=== PATIENT | male | born 1950 | race African-American/Black ===

== ENCOUNTER → 2017-07-18 | Outpatient (CLI) | payer MEDICARE, BC ==
--- NOTE | 2017-07-18 21:54 | US ---
EXAMINATION TYPE: US thyroid st tissue head/neck DATE OF EXAM: 07/18/2017 COMPARISON: Thyroid ultrasound January 13, 2016 CLINICAL HISTORY: R94.6 ABN THYROID LABS. ABN labs, previous GLAND SIZE: Right Lobe: 4.7 x 2.1 x 2.0 cm Overall Parenchyma: heterogenous Left Lobe: 4.6 x 2.0 x 1.5 cm Overall Parenchyma: heterogeneous Isthmus Thickness: 0.4 cm Bilateral neck scanned, no evidence of lymphadenopathy. Bilateral heterogeneous thyroid as seen on pr evious Heterogeneous but normal sized thyroid gland is redemonstrated without concerning greater than 1 cm s olid or cystic nodule. IMPRESSION: Overall stable findings, heterogeneous normal size thyroid gland with multiple small nodules, no worr isome nodules.
== END | disposition home or self-care (01) ==
LOC: RADUSWWP 15:37
PROVIDERS: ATTEND Family Medicine
DX: R94.6 Abnormal results of thyroid function studies (principal)
CPT/HCPCS: 76536

== ENCOUNTER → 2017-09-25 | Outpatient (CLI) | payer MEDICARE ==
[2017-09-25 18:38] LABS: ACTH 23.6 pg/mL (0.00-45.99)
== END | disposition home or self-care (01) ==
LOC: LABWHC1 07:57
PROVIDERS: ATTEND Internal Medicine Endocrinology, Diabetes & Metabolism
DX: E05.90 Thyrotoxicosis, unspecified without thyrotoxic crisis or storm (principal); R53.83 Other fatigue
CPT/HCPCS: 36415; 82024; 82533; 84146; 84439; 84443; 84445; 84480

== ENCOUNTER → 2017-10-10 | Outpatient (CLI) | payer MEDICARE ==
--- NOTE | 2017-10-11 10:26 | NM ---
EXAMINATION TYPE: NM thyroid image w uptake DATE OF EXAM: 10/11/2017 COMPARISON: 07/18/2017 ultrasound HISTORY: Fatigue subclinical hyperthyroidism TECHNIQUE: Thyroid iodine uptake is calculated and images performed after the oral administration of 320 uCi I-123 uCi 1-123 Capsule. FINDINGS: There is normal distribution of activity throughout the gland. The 4 hour iodine uptake is calculated at 14.7% (normal range 8-14%). The 24-hour iodine uptake is calculated at 37.5% (angel l range 15-35%). Uptake values are slightly above the normal range. Imaging is performed over the bilateral thyroid lobes. Thyroid is at the suprasternal notch. A small area of slight increased radiotracer is along the superior medial left lobe thyroid on previous december b e an additional lobule of thyroid tissue. This area is not clearly identified on the ultrasound. IMPRESSION: 1. Elevated thyroid uptake. 2. Lobular uptake superior medial left lobe thyroid
== END | disposition home or self-care (01) ==
LOC: RADNMMAIN 08:34
PROVIDERS: ATTEND Internal Medicine Endocrinology, Diabetes & Metabolism
DX: R94.6 Abnormal results of thyroid function studies (principal)
CPT/HCPCS: 78014; A9516

== ENCOUNTER → 2017-11-26 | Outpatient (CLI) | payer MEDICARE ==
[2017-11-26 10:07] LABS: T4, Free (Free Thyroxine) 1.36 ng/dL (0.78-2.19)
== END | disposition home or self-care (01) ==
LOC: LABWHC1 09:12
PROVIDERS: ATTEND Internal Medicine Endocrinology, Diabetes & Metabolism
DX: E05.90 Thyrotoxicosis, unspecified without thyrotoxic crisis or storm (principal); R53.83 Other fatigue
CPT/HCPCS: 36415; 84439; 84443

== ENCOUNTER → 2017-12-17 | Outpatient (CLI) | payer MEDICARE ==
--- NOTE | 2017-12-17 14:22 | US ---
EXAMINATION TYPE: US venous doppler duplex LE DATE OF EXAM: 12/17/2017 2:01 PM COMPARISON: US CLINICAL HISTORY: R60.0 Localized Edema. Rt calf swelling x 2 weeks with pain medial leg SIDE PERFORMED: Bilateral TECHNIQUE: The lower extremity deep venous system is examined utilizing real time linear array sonog peggy with graded compression, Doppler sonography and color-flow sonography. VESSELS IMAGED: Common Femoral Vein Deep Femoral Vein Greater Saphenous Vein * Femoral Vein Popliteal Vein Small Saphenous Vein * Proximal Calf Veins (* superficial vessels) Grayscale, color doppler, spectral doppler imaging performed of the deep veins of the lower extremiti es. There is normal flow, compressibility, vascular waveforms. Right Leg: Negative for DVT. Fluid channels are noted length of right calf Left Leg: Negative for DVT IMPRESSION: No sonographic evidence of deep venous thrombosis within either lower extremity. Prefere ntial dependent right lower extremity subcutaneous edema
== END | disposition home or self-care (01) ==
LOC: RADUSWWP 13:25
PROVIDERS: ATTEND Family Medicine
DX: R60.0 Localized edema (principal)
CPT/HCPCS: 93970

== ENCOUNTER → 2018-02-05 | Outpatient (CLI) | payer MEDICARE ==
[2018-02-05 10:09] LABS: T4, Free (Free Thyroxine) 6.29 ng/dL (0.78-2.19)
== END | disposition home or self-care (01) ==
LOC: LABWHC1 08:37
PROVIDERS: ATTEND Internal Medicine Endocrinology, Diabetes & Metabolism
DX: E05.90 Thyrotoxicosis, unspecified without thyrotoxic crisis or storm (principal)
CPT/HCPCS: 36415; 84439; 84443; 84480

== ENCOUNTER → 2018-02-28 | Outpatient (CLI) | payer MEDICARE ==
[2018-02-28 09:49] LABS: T4, Free (Free Thyroxine) 2.04 ng/dL (0.78-2.19)
== END | disposition home or self-care (01) ==
LOC: LABWHC1 08:31
PROVIDERS: ATTEND Internal Medicine Endocrinology, Diabetes & Metabolism
DX: E05.00 Thyrotoxicosis with diffuse goiter without thyrotoxic crisis or storm (principal)
CPT/HCPCS: 36415; 84439; 84443; 84480

== ENCOUNTER → 2018-03-18 | Outpatient (CLI) | payer MEDICARE ==
[2018-03-18 11:06] LABS: T4, Free (Free Thyroxine) 1.63 ng/dL (0.78-2.19)
== END | disposition home or self-care (01) ==
LOC: LABWHC1 10:16
PROVIDERS: ATTEND Internal Medicine Endocrinology, Diabetes & Metabolism
DX: E05.00 Thyrotoxicosis with diffuse goiter without thyrotoxic crisis or storm (principal)
CPT/HCPCS: 36415; 84439; 84443; 84480

== ENCOUNTER → 2018-05-20 | Outpatient (CLI) | payer MEDICARE ==
[2018-05-20 10:32] LABS: T4, Free (Free Thyroxine) 0.56 ng/dL (0.78-2.19)
== END | disposition home or self-care (01) ==
LOC: LABWHC1 08:35
PROVIDERS: ATTEND Internal Medicine Endocrinology, Diabetes & Metabolism
DX: E05.00 Thyrotoxicosis with diffuse goiter without thyrotoxic crisis or storm (principal)
CPT/HCPCS: 36415; 84439; 84443; 84480

== ENCOUNTER → 2018-07-15 | Outpatient (CLI) | payer MEDICARE ==
[2018-07-15 16:08] LABS: T4, Free (Free Thyroxine) 0.5 ng/dL (0.80-1.80)
== END | disposition home or self-care (01) ==
LOC: LABWHC1 09:03
PROVIDERS: ATTEND Internal Medicine Endocrinology, Diabetes & Metabolism
DX: E05.00 Thyrotoxicosis with diffuse goiter without thyrotoxic crisis or storm (principal)
CPT/HCPCS: 36415; 84439; 84443; 84480

== ENCOUNTER → 2018-10-23 | Outpatient (CLI) | payer MEDICARE ==
[2018-10-23 17:50] LABS: T4, Free (Free Thyroxine) 0.7 ng/dL (0.80-1.80)
== END | disposition home or self-care (01) ==
LOC: LABWHC1 09:21
PROVIDERS: ATTEND Internal Medicine Endocrinology, Diabetes & Metabolism
DX: E05.90 Thyrotoxicosis, unspecified without thyrotoxic crisis or storm (principal)
CPT/HCPCS: 36415; 84439; 84443; 84480

== ENCOUNTER → 2018-12-19 | Outpatient (CLI) | payer MEDICARE | END | disposition home or self-care (01) | LOC: LABWHC1 08:51 | PROVIDERS: ATTEND Internal Medicine Endocrinology, Diabetes & Metabolism | DX: E05.00 Thyrotoxicosis with diffuse goiter without thyrotoxic crisis or storm (principal) | CPT/HCPCS: 36415; 84439; 84443; 84480 ==

== ENCOUNTER → 2019-03-03 | Outpatient (CLI) | payer MEDICARE | END | disposition home or self-care (01) | LOC: LABWHC1 08:00 | PROVIDERS: ATTEND Internal Medicine Endocrinology, Diabetes & Metabolism | DX: E05.00 Thyrotoxicosis with diffuse goiter without thyrotoxic crisis or storm (principal) | CPT/HCPCS: 36415; 84439; 84443; 84480 ==

== ENCOUNTER → 2019-06-05 | Outpatient (CLI) | payer MEDICARE | END | disposition home or self-care (01) | LOC: LABWHC1 08:16 | PROVIDERS: ATTEND Internal Medicine Endocrinology, Diabetes & Metabolism | DX: E05.00 Thyrotoxicosis with diffuse goiter without thyrotoxic crisis or storm (principal) | CPT/HCPCS: 36415; 84439; 84443; 84480 ==

== ENCOUNTER → 2019-08-04 | Outpatient (CLI) | payer MEDICARE ==
[2019-08-04 17:29] LABS: ALT 22 U/L (10-49); AST 16 U/L (14-35); African American GFR (CKD) 70.6 (60.0-200.0); Albumin/Globulin Ratio 2.32 (1.60-3.17); Alkaline Phosphatase 101 U/L (41-126); Calcium 9.9 mg/dL (8.7-10.3); Carbon Dioxide 27.7 mmol/L (21.6-31.8); Chloride 104 mmol/L (96-109); Globulin 1.9 g/dL (1.6-3.3); Glucose 233 mg/dL (70-110); Non-African American GFR(CKD) 60.9 (60.0-200.0); Potassium 4.8 mmol/L (3.5-5.5); Sodium 139 mmol/L (135-145); Total Bilirubin 1.4 mg/dL (0.2-1.2); Total Protein 6.3 g/dL (6.2-8.2)
== END | disposition home or self-care (01) ==
LOC: LABWHC1 08:15
PROVIDERS: ATTEND Internal Medicine Endocrinology, Diabetes & Metabolism
DX: E05.00 Thyrotoxicosis with diffuse goiter without thyrotoxic crisis or storm (principal)
CPT/HCPCS: 36415; 80053; 84439; 84443; 84480

== ENCOUNTER → 2019-09-15 | Outpatient (CLI) | payer MEDICARE ==
[2019-09-15 16:13] LABS: African American GFR (CKD) 58.6 (60.0-200.0); Albumin 4.8 g/dL (3.80-4.90); Albumin/Globulin Ratio 2.4 (1.60-3.17); Anion Gap 6.1 mmol/L (4.00-12.00); BUN/Creat Ratio 12.86 Ratio (12.00-20.00); Calcium 9.9 mg/dL (8.7-10.3); Carbon Dioxide 27.9 mmol/L (21.6-31.8); Non-African American GFR(CKD) 50.5 (60.0-200.0); Potassium 4.6 mmol/L (3.5-5.5); Total Bilirubin 1.5 mg/dL (0.3-1.2); Total Protein 6.8 g/dL (6.2-8.2)
[2019-09-15 16:21] LABS: T4, Free (Free Thyroxine) 1.5 ng/dL (0.80-1.80)
== END | disposition home or self-care (01) ==
LOC: LABWHC1 08:25
PROVIDERS: ATTEND Internal Medicine Endocrinology, Diabetes & Metabolism
DX: E05.00 Thyrotoxicosis with diffuse goiter without thyrotoxic crisis or storm (principal)
CPT/HCPCS: 36415; 80053; 84439; 84443; 84480

== ENCOUNTER → 2019-12-17 | Outpatient (CLI) | payer MEDICARE ==
[2019-12-17 15:56] LABS: African American GFR (CKD) 64.1 (60.0-200.0); Albumin 4.6 g/dL (3.80-4.90); Anion Gap 6.9 mmol/L (4.00-12.00); BUN/Creat Ratio 11.54 Ratio (12.00-20.00); Carbon Dioxide 28.1 mmol/L (21.6-31.8); Non-African American GFR(CKD) 55.3 (60.0-200.0); Potassium 4.6 mmol/L (3.5-5.5); Total Protein 6.8 g/dL (6.2-8.2)
[2019-12-17 15:57] LABS: Albumin/Globulin Ratio 2.09 (1.60-3.17); Globulin 2.2 g/dL (1.6-3.3); Total Bilirubin 1.5 mg/dL (0.2-1.2)
== END | disposition home or self-care (01) ==
LOC: LABWHC1 08:31
PROVIDERS: ATTEND Internal Medicine Endocrinology, Diabetes & Metabolism
DX: E05.00 Thyrotoxicosis with diffuse goiter without thyrotoxic crisis or storm (principal)
CPT/HCPCS: 36415; 80053; 84439; 84443; 84480

== ENCOUNTER → 2021-02-15 | Outpatient (CLI) | payer MEDICARE | END | disposition home or self-care (01) | LOC: LABWHC1 15:55 | PROVIDERS: ATTEND Internal Medicine Endocrinology, Diabetes & Metabolism | DX: E05.00 Thyrotoxicosis with diffuse goiter without thyrotoxic crisis or storm (principal) | CPT/HCPCS: 36415; 84443; 84480 ==

== ENCOUNTER → 2021-05-16 | Outpatient (CLI) | payer MEDICARE | END | disposition home or self-care (01) | LOC: LABWHC1 08:05 | PROVIDERS: ATTEND Internal Medicine Endocrinology, Diabetes & Metabolism | DX: E05.00 Thyrotoxicosis with diffuse goiter without thyrotoxic crisis or storm (principal) | CPT/HCPCS: 36415; 84439; 84443; 84480 ==

== ENCOUNTER → 2021-08-30 | Outpatient (CLI) | payer MEDICARE ==
[2021-08-30 15:33] LABS: T4, Free (Free Thyroxine) 1.09 ng/dL (0.800-1.800)
== END | disposition home or self-care (01) ==
LOC: LABWHC1 08:26
PROVIDERS: ATTEND Internal Medicine Endocrinology, Diabetes & Metabolism
DX: E05.00 Thyrotoxicosis with diffuse goiter without thyrotoxic crisis or storm (principal)
CPT/HCPCS: 36415; 84439; 84443; 84480

== ENCOUNTER → 2021-12-27 | Outpatient (CLI) | payer MEDICARE ==
[2021-12-27 14:37] LABS: T4, Free (Free Thyroxine) 1.29 ng/dL (0.800-1.800)
== END | disposition home or self-care (01) ==
LOC: LABWHC1 08:17
PROVIDERS: ATTEND Internal Medicine Endocrinology, Diabetes & Metabolism
DX: E05.00 Thyrotoxicosis with diffuse goiter without thyrotoxic crisis or storm (principal)
CPT/HCPCS: 36415; 84439; 84443; 84480

== ENCOUNTER → 2022-02-23 | Outpatient (CLI) | payer MEDICARE ==
[2022-02-23 09:30] LABS: ALT 64 U/L (4-49); AST 52 U/L (17-59); African American GFR (CKD) 54 (>60 ml/min/1.73 sqM); Albumin 4.5 g/dL (3.5-5.0); Albumin/Globulin Ratio 1.3; Alkaline Phosphatase 70 U/L (38-126); Anion Gap 7 mmol/L; Blood Urea Nitrogen 17 mg/dL (9-20); Calcium 9.1 mg/dL (8.4-10.2); Carbon Dioxide 27 mmol/L (22-30); Chloride 105 mmol/L (98-107); Globulin 3.4 g/dL; Glucose 87 mg/dL (74-99); Non-African American GFR(CKD) 47 (>60 ml/min/1.73 sqM); Potassium 4.5 mmol/L (3.5-5.1); Sodium 139 mmol/L (137-145); Total Bilirubin 1.1 mg/dL (0.2-1.3); Total Protein 7.9 g/dL (6.3-8.2)
[2022-02-23 10:49] LABS: Creatinine 24 Hour,Urine 1709.4 mg/24hr (1000.0-2000.0)
[2022-02-23 23:22] LABS: Total Protein 24 Hour,Urine 10.4 mg/dL (0.0-165.0)
[2022-02-24 20:10] LABS: Total Volume 24 Hour,Urine 2100 mL
== END | disposition home or self-care (01) ==
LOC: LABWHC1 08:14
PROVIDERS: ATTEND Family Medicine
DX: E11.22 Type 2 diabetes mellitus with diabetic chronic kidney disease (principal); N18.9 Chronic kidney disease, unspecified
CPT/HCPCS: 36415; 80053; 81050; 82575; 84156

== ENCOUNTER → 2022-03-30 | Outpatient (CLI) | payer OTHER ==
--- NOTE | 2022-03-30 13:44 | US ---
EXAMINATION TYPE: US kidneys/renal and bladder DATE OF EXAM: 03/30/2022 COMPARISON: NONE CLINICAL HISTORY: R94.4 ABNORMAL RESULTS OF KIDNEY FUNCTION STUDIES. abn labs only, no symptoms EXAM MEASUREMENTS: Right Kidney: 9.1 x 3.2 x 5.4 cm Left Kidney: 11.0 x 5.1 x 6.5 cm Right Kidney: No hydronephrosis or masses seen Left Kidney: No hydronephrosis or masses seen Bladder: wnl There is no evidence for hydronephrosis at this point in time. No nephrolithiasis is seen. No manuel s are identified. The urinary bladder is anechoic IMPRESSION: No evidence for obstructive uropathy..
== END | disposition home or self-care (01) ==
LOC: RADUSWWP 12:38
DX: R94.4 Abnormal results of kidney function studies (principal)
CPT/HCPCS: 76770

== ENCOUNTER → 2022-04-05 | Outpatient (CLI) | payer OTHER | END | disposition home or self-care (01) | LOC: LABWHC1 08:21 | PROVIDERS: ATTEND Internal Medicine Endocrinology, Diabetes & Metabolism | DX: E05.00 Thyrotoxicosis with diffuse goiter without thyrotoxic crisis or storm (principal) | CPT/HCPCS: 36415; 84439; 84443; 84480 ==

== ENCOUNTER 2022-05-10 08:16 | Day surgery (SDC) | payer MEDICARE, OTHER ==
[~2022-05-10 08:16] MED LIST: LACTATED RINGERS 1,000 ML IV SCH
--- NOTE | 2022-05-10 08:27 | P.GSHP ---
History of Present Illness H&P Date: 05/10/22 CHIEF COMPLAINT: Colon screen HISTORY OF PRESENT ILLNESS: The patient is a 72-year-old female who presents for colon screen. Lower endoscopy was offered for further evaluation and management. PAST MEDICAL HISTORY: Please see list. PAST SURGICAL HISTORY: Please see list. MEDICATIONS: Please see list. ALLERGIES: Please see list. SOCIAL HISTORY: No illicit drug use FAMILY HISTORY: No reports of Crohn disease or ulcerative colitis. REVIEW OF ORGAN SYSTEMS: CONSTITUTIONAL: No reports of fevers or chills. PHYSICAL EXAM: VITAL SIGNS: Stable GENERAL: Well-developed pleasant in no acute distress. HEENT: No scleral icterus. Extraocular movements grossly intact. Moist buccal mucosa. NECK: Supple without lymphadenopathy. CHEST: Unlabored respirations. Equal bilateral excursions. CARDIOVASCULAR: Regular rate and rhythm. Distal 2+ pulses. ABDOMEN: Soft, nontender, nondistended. MUSCULOSKELETAL: No clubbing, cyanosis, or edema. ASSESSMENT: 1. Colon screen. PLAN: 1. Recommend proceeding with a lower endoscopy Past Medical History Past Medical History: Diabetes Mellitus, Eye Disorder, Hypertension, Thyroid Disorder Additional Past Medical History / Comment(s): GLAUCOMA History of Any Multi-Drug Resistant Organisms: None Reported Additional Past Surgical History / Comment(s): BILATERAL CATARACTS/WITH LENS. COLONOSCOPIES. Additional Past Anesthesia/Blood Transfusion Reaction / Comment(s): GENERAL ANESTHESIA. Past Psychological History: No Psychological Hx Reported Smoking Status: Former smoker Past Alcohol Use History: Rare Additional Past Alcohol Use History / Comment(s): QUIT 1997. 1 PDD Past Drug Use History: None Reported Medications and Allergies Home Medications Medication Instructions Recorded Confirmed Type Atorvastatin [Lipitor] 40 mg PO HS 05/09/22 05/09/22 History Dorzolamide 2% [Trusopt 2%] 1 drop BOTH EYES QAM 05/09/22 05/09/22 History Insulin Glargine,Hum.rec.anlog 40 unit SQ HS 05/09/22 05/09/22 History [Lantus Solostar Pen] Latanoprost Ophth [Xalatan 0.005%] 1 drop BOTH EYES HS 05/09/22 05/09/22 History Timolol 0.5% Ophth Soln (Pf) 1 drop BOTH EYES QAM 05/09/22 05/09/22 History [Timoptic 0.5% Ocudose] hydroCHLOROthiazide [Hydrodiuril] 50 mg PO QAM 05/09/22 05/09/22 History lisinopriL [Zestril] 5 mg PO QAM 05/09/22 05/09/22 History methIMAzole 20 mg PO QAM 05/09/22 05/09/22 History Allergies Allergy/AdvReac Type Severity Reaction Status Date / Time No Known Allergies Allergy Verified 05/09/22 10:01
[2022-05-10 08:41] VITALS: RESP 16; TEMP 97
[2022-05-10 08:50] LABS: Glucose,Whole Blood 117 mg/dL (70-110)
[2022-05-10] MEDS ORDERED: PROPOFOL 10 MG/ML 20 ML VIAL IV ONE (08:54)
--- NOTE | 2022-05-10 09:28 | P.PCN ---
Date of Procedure: 05/10/22 Description of Procedure: PREOPERATIVE DIAGNOSIS: Colonoscopy screening POSTOPERATIVE DIAGNOSIS: Tubular adenoma ascending colon Tubular adenoma descending colon Tubular adenoma sigmoid colon Internal hemorrhoids, grade 2 OPERATION: Colonoscopy to the ileocecal valve and appendiceal orifice, cecum Colonoscopy with hot snare polypectomy Colonoscopy with cold forceps biopsy SURGEON: Negra Gutierrez MD. ANESTHESIA: MAC. INDICATIONS: The patient is an 72-year-old male who presents for his first colonoscopy screening. Benefits and risks were described and informed consent was obtained. DESCRIPTION OF PROCEDURE: The patient had undergone Sutab prep. The patient had been brought into the op erating room and laid in the left lateral decubitus position. After adequate intravenous sedation, the rectum was examined with 2% lidocaine jelly. The prostate fossa was unremarkable. No external hemorrhoids were encountered. The rectal tone was within normal limits. No lesions were palpated in the rectal vault. An Olympus colonoscope was advanced until the cecum, ileocecal valve and appendiceal orifice were clearly viewed. The prep was fair. No sigmoid diverticulosis was encountered. Colonic polyps were found and removed. No evidence of focal colitis was found. Retroflexion of the scope demonstrated grade 1 internal hemorrhoids without active bleeding or inflammation. The colon was desufflated. The patient had tolerated the procedure well. Withdrawal time was over 6 minutes. FINDINGS: Aronchick preparation quality scale 3 (1-5) Internal hemorrhoids, grade 1 No external hemorrhoids No arteriovenous malformations. No sigmoid diverticulosis Removal of 4 polyps: - Snare polypectomy 30 cm from the anal verge, 8 mm tubulovillous adenoma polyp. - Cold forceps biopsy at ascending colon, 4 mm polyp. - Cold forceps biopsy at 15 cm from the anal verge 2, 3 to 4 mm polyp. No focal colitis. RECOMMENDATIONS: Repeat colonoscopy 3 years, 2024 Plan - Discharge Summary Discharge Rx Participant: No New Discharge Prescriptions: Continue Dorzolamide 2% [Trusopt 2%] 1 drop BOTH EYES QAM Latanoprost Ophth [Xalatan 0.005%] 1 drop BOTH EYES HS lisinopriL [Zestril] 5 mg PO QAM Atorvastatin [Lipitor] 40 mg PO HS Insulin Glargine,Hum.rec.anlog [Lantus Solostar Pen] 40 unit SQ HS methIMAzole 20 mg PO QAM hydroCHLOROthiazide [Hydrodiuril] 50 mg PO QAM Timolol 0.5% Ophth Soln (Pf) [Timoptic 0.5% Ocudose] 1 drop BOTH EYES QAM Discharge Medication List Atorvastatin [Lipitor] 40 mg PO HS 05/09/22 [History] Dorzolamide 2% [Trusopt 2%] 1 drop BOTH EYES QAM 05/09/22 [History] Insulin Glargine,Hum.rec.anlog [Lantus Solostar Pen] 40 unit SQ HS 05/09/22 [History] Latanoprost Ophth [Xalatan 0.005%] 1 drop BOTH EYES HS 05/09/22 [History] Timolol 0.5% Ophth Soln (Pf) [Timoptic 0.5% Ocudose] 1 drop BOTH EYES QAM 05/09/22 [History] hydroCHLOROthiazide [Hydrodiuril] 50 mg PO QAM 05/09/22 [History] lisinopriL [Zestril] 5 mg PO QAM 05/09/22 [History] methIMAzole 20 mg PO QAM 05/09/22 [History] Follow up Appointment(s)/Referral(s): Negra Gutierrez MD [STAFF PHYSICIAN] - As Needed Patient Instructions/Handouts: Colorectal Polyps (GEN) Activity/Diet/Wound Care/Special Instructions: Repeat colonoscopy in 3 years, 2024 Discharge Disposition: HOME SELF-CARE
[2022-05-10 09:51] VITALS: BP 126/74; PULSE 74
== END 2022-05-10 10:08 | disposition home or self-care (01) ==
LOC: ORWHC2ENDO 08:16
PROVIDERS: ATTEND Surgery Plastic and Reconstructive Surgery
DX: Z12.11 Encounter for screening for malignant neoplasm of colon (principal); K63.5 Polyp of colon; K62.0 Anal polyp; K64.8 Other hemorrhoids; I10 Essential (primary) hypertension; E07.9 Disorder of thyroid, unspecified; H57.9 Unspecified disorder of eye and adnexa; F10.99 Alcohol use, unspecified with unspecified alcohol-induced disorder; H40.9 Unspecified glaucoma; E11.36 Type 2 diabetes mellitus with diabetic cataract; Z87.891 Personal history of nicotine dependence; Z79.2 Long term (current) use of antibiotics; Z79.899 Other long term (current) drug therapy
CPT/HCPCS: 88305; 45380; 45385; J2704

== ENCOUNTER → 2022-06-26 | Outpatient (CLI) | payer MEDICARE ==
[2022-06-26 16:25] LABS: T4, Free (Free Thyroxine) 1.1 ng/dL (0.800-1.800)
== END | disposition home or self-care (01) ==
LOC: LABWHC1 08:18
PROVIDERS: ATTEND Internal Medicine Endocrinology, Diabetes & Metabolism
DX: E05.00 Thyrotoxicosis with diffuse goiter without thyrotoxic crisis or storm (principal)
CPT/HCPCS: 36415; 84439; 84443; 84480

== ENCOUNTER → 2022-11-27 | Outpatient (CLI) | payer MEDICARE ==
[2022-11-27 17:05] LABS: African American GFR (CKD) 48.4 (60.0-200.0); Albumin 4.7 g/dL (3.8-4.9); Albumin/Globulin Ratio 1.75 (1.60-3.17); Anion Gap 11.9 mmol/L (10.00-18.00); BUN/Creat Ratio 10.62 Ratio (12.00-20.00); Blood Urea Nitrogen 17.1 mg/dL (9.0-27.0); Calcium 10.2 mg/dL (8.7-10.3); Globulin 2.7 g/dL (1.6-3.3); Non-African American GFR(CKD) 41.8 (60.0-200.0); Potassium 4.6 mmol/L (3.5-5.5); Total Bilirubin 1.3 mg/dL (0.30-1.20); Total Protein 7.4 g/dL (6.2-8.2)
[2022-11-27 21:19] LABS: Total Volume 24 Hour,Urine 2950 mL
[2022-11-27 22:44] LABS: Creatinine 24 Hour,Urine 1.3 g/24Hr (1.00-2.00)
== END | disposition home or self-care (01) ==
LOC: LABWHC1 08:10
PROVIDERS: ATTEND Family Medicine
DX: N18.32 Chronic kidney disease, stage 3b (principal)
CPT/HCPCS: 36415; 80053; 81050; 82570; 84156

== ENCOUNTER → 2022-12-27 | Outpatient (CLI) | payer MEDICARE ==
[2022-12-27 18:39] LABS: T4, Free (Free Thyroxine) 1.4 ng/dL (0.800-1.800)
== END | disposition home or self-care (01) ==
LOC: LABWHC1 07:58
PROVIDERS: ATTEND Internal Medicine Endocrinology, Diabetes & Metabolism
DX: E05.90 Thyrotoxicosis, unspecified without thyrotoxic crisis or storm (principal)
CPT/HCPCS: 36415; 84439; 84443; 84480

== ENCOUNTER → 2023-02-15 | Outpatient (CLI) | payer MEDICARE ==
--- NOTE | 2023-02-15 15:55 | US ---
EXAMINATION TYPE: US kidneys/renal and bladder DATE OF EXAM: 02/15/2023 COMPARISON: US CLINICAL INDICATION: Male, 72 years old with history of N18.32 CHRONIC KIDNEY DISEASE, STAGE 3B; CKD EXAM MEASUREMENTS: Right Kidney: 9.3 x 4.9 x 45 cm Left Kidney: 9.4 x 6.0 x 4.9 cm Right Kidney: No evidence of hydro Left Kidney: No evidence of hydro Bladder: wnl Bilateral Jets seen: Only left jet visualized Cortical medullary differentiation maintained bilaterally. There is no evidence for hydronephrosis at this point in time. No nephrolithiasis is seen. No manuel s are identified. The urinary bladder is anechoic. IMPRESSION: 1. No evidence of obstructive uropathy. 2. Cortical medullary differentiation maintained bilaterally.
== END | disposition home or self-care (01) ==
LOC: RADUSWWP 15:25
PROVIDERS: ATTEND Internal Medicine
DX: N18.32 Chronic kidney disease, stage 3b (principal)
CPT/HCPCS: 76770

== ENCOUNTER → 2023-04-04 | Outpatient (CLI) | payer MEDICARE ==
[2023-04-04 11:28] LABS: T4, Free (Free Thyroxine) 1.24 ng/dL (0.80-1.80)
== END | disposition home or self-care (01) ==
LOC: LABWHC1 07:24
PROVIDERS: ATTEND Internal Medicine Endocrinology, Diabetes & Metabolism
DX: E05.00 Thyrotoxicosis with diffuse goiter without thyrotoxic crisis or storm (principal)
CPT/HCPCS: 36415; 84439; 84443; 84480

== ENCOUNTER → 2023-04-11 | Outpatient (CLI) | payer MEDICARE ==
[2023-04-11 16:14] LABS: Appearance,Urine Clear (Clear); Bilirubin,Urine Negative (Negative); Blood,Urine Negative (Negative); Color,Urine Yellow (Yellow); Ketones,Urine Negative (Negative); Nitrite,Urine Negative (Negative); Specific Gravity,Urine 1.023 (1.001-1.030); Urobilinogen,Urine 0.2 E.U./DL
[2023-04-11 16:22] LABS: Basophils # (A) 0.04 X 10*3/uL (0.00-0.10); Basophils % (A) 0.5 %; Eosinophils # (A) 0.04 X 10*3/uL (0.04-0.35); Eosinophils % (A) 0.5 %; HCT 47.3 % (39.6-50.0); HGB 15.6 d/dL (13.0-17.0); Lymphocytes # (A) 3.23 X 10*3/uL (0.90-5.00); Lymphocytes % (A) 43.9 %; MCH 33.1 pg (27.0-32.0); MCV 100.2 FL (80.0-97.0); Mean Platelet Volume 11.2 FL (9.5-12.2); Monocytes # (A) 0.66 X 10*3/uL (0.20-1.00); NRBC Per 100 WBC 0 X 10*3/uL (0.00-0.01); Neutrophils # (A) 3.37 X 10*3/uL (1.80-7.70); Neutrophils % (A) 45.8 %; Platelet Count 269 X 10*3/uL (140-440); RBC 4.72 X 10*6/uL (4.40-5.60); RDW 12.5 % (11.5-14.5); WBC 7.36 X 10*3/uL (4.50-10.00)
[2023-04-11 16:36] LABS: Immunoglobulin M 65.1 mg/dL (40.0-280.0)
[2023-04-11 16:49] LABS: % Iron Saturation 28.82 (15.00-50.00); Ferritin 91.1 ng/mL (22.0-322.0); Iron 117 UG/DL (65-175); LDL Cholesterol,Calculated 87.5 mg/dL (0.0-131.0); Magnesium 2.5 mg/dL (1.5-2.4); Phosphorus 4.1 mg/dL (2.4-5.1); T4, Free (Free Thyroxine) 1.62 ng/dL (0.80-1.80); Total Iron Binding Capacity 406 UG/DL (228-460); Uric Acid 6.3 mg/dL (3.7-8.7)
[2023-04-11 17:58] LABS: ALT 62 U/L (10-49); AST 37 U/L (14-35); Albumin 5.1 d/dL (3.8-4.9); Alkaline Phosphatase 109 U/L (41-126); BUN/Creat Ratio 10.05 Ratio (12.00-20.00); Blood Urea Nitrogen 21.1 mg/dL (9.0-27.0); Calcium 10.7 mg/dL (8.7-10.3); Carbon Dioxide 27.1 mmol/L (21.6-31.8); Chloride 98 mmol/L (96-109); Glucose 175 mg/dL (70-110); Potassium 5.5 mmol/L (3.5-5.5); Sodium 136 mmol/L (135-145); Total Bilirubin 1.7 mg/dL (0.3-1.2); Total Protein 8.1 d/dL (6.2-8.2)
[2023-04-11 21:29] LABS: Microalbumin Creatinine Ratio <13 mg/g Cr (0-30); Urine Creatinine 93.2 mg/dL (39.0-259.0)
== END | disposition home or self-care (01) ==
LOC: LABWHC1 08:45
PROVIDERS: ATTEND Family Medicine
DX: Z12.5 Encounter for screening for malignant neoplasm of prostate (principal); E11.311 Type 2 diabetes mellitus with unspecified diabetic retinopathy with macular edema; E03.9 Hypothyroidism, unspecified; E11.22 Type 2 diabetes mellitus with diabetic chronic kidney disease; N18.32 Chronic kidney disease, stage 3b; D63.1 Anemia in chronic kidney disease; N39.0 Urinary tract infection, site not specified; E55.9 Vitamin D deficiency, unspecified; N25.81 Secondary hyperparathyroidism of renal origin; M10.9 Gout, unspecified; R80.9 Proteinuria, unspecified
CPT/HCPCS: 36415; 80053; 80061; 81003; 82043; 82306; 82570; 82728; 83036; 83540; 83550; 83735; 83883; 83970; 84100; 84153; 84439; 84443; 84550; 85025; 86334

== ENCOUNTER → 2023-04-16 | Outpatient (CLI) | payer MEDICARE ==
[2023-04-16 15:57] LABS: ALT 42 U/L (10-49); AST 25 U/L (14-35); Albumin 4.8 d/dL (3.8-4.9); Albumin/Globulin Ratio 1.92 Ratio (1.60-3.17); Alkaline Phosphatase 91 U/L (41-126); BUN/Creat Ratio 12.14 Ratio (12.00-20.00); Blood Urea Nitrogen 25.5 mg/dL (9.0-27.0); Calcium 10.1 mg/dL (8.7-10.3); Chloride 102 mmol/L (96-109); Globulin 2.5 d/dL (1.6-3.3); Glucose 73 mg/dL (70-110); Potassium 4.6 mmol/L (3.5-5.5); Sodium 140 mmol/L (135-145); Total Bilirubin 1.6 mg/dL (0.3-1.2); Total Protein 7.3 d/dL (6.2-8.2)
== END | disposition home or self-care (01) ==
LOC: LABWHC1 08:44
PROVIDERS: ATTEND Internal Medicine
DX: N18.32 Chronic kidney disease, stage 3b (principal)
CPT/HCPCS: 36415; 80053

== ENCOUNTER → 2023-07-11 | Outpatient (CLI) | payer MEDICARE ==
[2023-07-11 17:19] LABS: HCT 49.5 % (39.6-50.0); HGB 15.8 g/dL (13.0-17.0); MCH 32.4 pg (27.0-32.0); MCHC 31.9 g/dL (32.0-37.0); MCV 101.4 FL (80.0-97.0); Mean Platelet Volume 11.5 FL (9.5-12.2); NRBC Per 100 WBC 0 X 10*3/uL (0.00-0.01); Platelet Count 213 X 10*3/uL (140-440); RBC 4.88 X 10*6/uL (4.40-5.60); RDW 11.8 % (11.5-14.5); WBC 5.89 X 10*3/uL (4.50-10.00)
[2023-07-11 17:38] LABS: % Iron Saturation 30.05 (15.00-50.00); Iron 122 UG/DL (65-175); Magnesium 2.3 mg/dL (1.5-2.4); Phosphorus 4.4 mg/dL (2.4-5.1); Total Iron Binding Capacity 406 UG/DL (228-460); Uric Acid 4.6 mg/dL (3.7-8.7)
[2023-07-11 17:55] LABS: ALT 59 U/L (10-49); AST 31 U/L (14-35); Albumin 5.2 g/dL (3.8-4.9); Albumin/Globulin Ratio 1.93 Ratio (1.60-3.17); Alkaline Phosphatase 112 U/L (41-126); BUN/Creat Ratio 9.11 Ratio (12.00-20.00); Blood Urea Nitrogen 16.4 mg/dL (9.0-27.0); Calcium 10.2 mg/dL (8.7-10.3); Carbon Dioxide 22.9 mmol/L (21.6-31.8); Chloride 104 mmol/L (96-109); Globulin 2.7 g/dL (1.6-3.3); Glucose 206 mg/dL (70-110); Potassium 4.4 mmol/L (3.5-5.5); Sodium 141 mmol/L (135-145); Total Bilirubin 1.4 mg/dL (0.3-1.2); Total Protein 7.9 g/dL (6.2-8.2)
[2023-07-12 04:57] LABS: Creatinine 24 Hour,Urine 1.45 g/24hr (1.00-2.00)
[2023-07-13 10:35] LABS: Free Kappa Lt Chain Qnt, Serum 4.11 mg/dL (0.33-1.94); Free Lambda Lt Chain Qnt, Seru 2.07 mg/dL (0.57-2.63)
== END | disposition home or self-care (01) ==
LOC: LABWHC1 08:11
PROVIDERS: ATTEND Nurse Practitioner Family
DX: E55.9 Vitamin D deficiency, unspecified (principal); N25.81 Secondary hyperparathyroidism of renal origin; M10.9 Gout, unspecified; D63.1 Anemia in chronic kidney disease; N18.32 Chronic kidney disease, stage 3b; R80.9 Proteinuria, unspecified
CPT/HCPCS: 36415; 80053; 81050; 82043; 82164; 82306; 82340; 82570; 82728; 83540; 83550; 83735; 83883; 83970; 84100; 84550; 85027; 86334

== ENCOUNTER → 2023-08-22 | Outpatient (CLI) | payer MEDICARE ==
[2023-08-22 15:25] LABS: T4, Free (Free Thyroxine) 1.42 ng/dL (0.80-1.80)
== END | disposition home or self-care (01) ==
LOC: LABWHC1 08:12
PROVIDERS: ATTEND Internal Medicine Endocrinology, Diabetes & Metabolism
DX: E05.90 Thyrotoxicosis, unspecified without thyrotoxic crisis or storm (principal)
CPT/HCPCS: 36415; 84439; 84443; 84480

== ENCOUNTER → 2023-12-18 | Outpatient (CLI) | payer MEDICARE ==
[2023-12-18 15:49] LABS: T4, Free (Free Thyroxine) 1.34 ng/dL (0.80-1.80)
[2023-12-18 16:02] LABS: ALT 40 U/L (10-49); AST 27 U/L (14-35); Albumin 4.4 g/dL (3.8-4.9); Alkaline Phosphatase 108 U/L (41-126); Blood Urea Nitrogen 26.6 mg/dL (9.0-27.0); Calcium 9.5 mg/dL (8.7-10.3); Carbon Dioxide 21.3 mmol/L (21.6-31.8); Chloride 102 mmol/L (96-109); Globulin 2.1 g/dL (1.6-3.3); Glucose 407 mg/dL (70-110); Potassium 5.5 mmol/L (3.5-5.5); Sodium 137 mmol/L (135-145); Total Bilirubin 2.4 mg/dL (0.3-1.2); Total Protein 6.5 g/dL (6.2-8.2)
== END | disposition home or self-care (01) ==
LOC: LABWHC1 10:47
PROVIDERS: ATTEND Internal Medicine Endocrinology, Diabetes & Metabolism
DX: E05.90 Thyrotoxicosis, unspecified without thyrotoxic crisis or storm (principal); E83.52 Hypercalcemia
CPT/HCPCS: 36415; 80053; 82306; 83970; 84439; 84443; 84480

== ENCOUNTER 2023-12-20 15:28 | Emergency (ER) | payer MEDICARE ==
--- NOTE | 2023-12-20 15:59 | ED ---
Abdominal Pain HPI - General Chief Complaint: Abdominal Pain Stated Complaint: abd pain Time Seen by Provider: 12/20/23 15:57 Source: patient, RN notes reviewed, old records reviewed Mode of arrival: ambulatory Limitations: no limitations - History of Present Illness Initial Comments: This is a 73-year-old male presenting for evaluation of severe abdominal pain epigastric abdominal pain with history of pancreatitis this feels the same. Patient did have a strong history of alcohol drinking but that has been over 20 to 30 years ago patient comes in for evaluation of severe abdominal pain although improved no nausea vomiting no other complaints MD Complaint: abdominal pain -: days(s) Location: epigastric Radiation: epigastric Migration to: no migration, suprapubic Severity: moderate Severity scale (1-10): 7 Quality: sharp Consistency: constant Improves With: nothing Associated Symptoms: nausea, vomiting - Related Data Home Medications Medication Instructions Recorded Confirmed Atorvastatin [Lipitor] 40 mg PO DAILY 05/09/22 12/20/23 Insulin Glargine,Hum.rec.anlog 10 unit SQ DAILY PRN 05/09/22 12/20/23 [Lantus Solostar Pen] Latanoprost Ophth [Xalatan 0.005%] 1 drop BOTH EYES HS 05/09/22 12/20/23 Brimonidine Tartrate [Alphagan P 1 drops RIGHT EYE TID 12/20/23 12/20/23 0.2% Ophth Soln] Empagliflozin [Jardiance] 25 mg PO DAILY 12/20/23 12/20/23 lisinopriL [Zestril] 10 mg PO DAILY 12/20/23 12/20/23 methIMAzole [Tapazole] 5 mg PO DAILY 12/20/23 12/20/23 Allergies Allergy/AdvReac Type Severity Reaction Status Date / Time No Known Allergies Allergy Verified 12/20/23 16:54 Review of Systems ROS Statement: Those systems with pertinent positive or pertinent negative responses have been documented in the HPI. ROS Other: All systems not noted in ROS Statement are negative. Past Medical History Past Medical History: Diabetes Mellitus, Eye Disorder, Hypertension, Thyroid Disorder Additional Past Medical History / Comment(s): GLAUCOMA. PANCREATITIS History of Any Multi-Drug Resistant Organisms: None Reported Additional Past Surgical History / Comment(s): BILATERAL CATARACTS/WITH LENS. COLONOSCOPIES. Additional Past Anesthesia/Blood Transfusion Reaction / Comment(s): GENERAL ANESTHESIA. Past Psychological History: No Psychological Hx Reported Smoking Status: Former smoker Past Alcohol Use History: Rare Past Drug Use History: None Reported General Exam Limitations: no limitations General appearance: alert, in no apparent distress Head exam: Present: atraumatic, normocephalic, normal inspection Eye exam: Present: normal appearance, PERRL, EOMI. Absent: scleral icterus, conjunctival injection, periorbital swelling ENT exam: Present: normal exam, mucous membranes moist Neck exam: Present: normal inspection. Absent: tenderness, meningismus, lymphadenopathy Respiratory exam: Present: normal lung sounds bilaterally. Absent: respiratory distress, wheezes, rales, rhonchi, stridor Cardiovascular Exam: Present: regular rate, normal rhythm, normal heart sounds. Absent: systolic murmur, diastolic murmur, rubs, gallop, clicks GI/Abdominal exam: Present: soft, normal bowel sounds. Absent: distended, tenderness, guarding, rebound, rigid Extremities exam: Present: normal inspection, full ROM, normal capillary refill. Absent: tenderness, pedal edema, joint swelling, calf tenderness Back exam: Present: normal inspection Neurological exam: Present: alert, oriented X3, CN II-XII intact Psychiatric exam: Present: normal affect, normal mood Skin exam: Present: warm, dry, intact, normal color. Absent: rash Course Vital Signs 12/20/23 12/20/23 12/20/23 15:39 16:05 17:01 Temperature 97.8 F 97.6 F Pulse Rate 100 82 88 Respiratory 20 17 17 Rate Blood Pressure 153/83 152/72 151/74 O2 Sat by Pulse 99 97 97 Oximetry 12/20/23 12/20/23 12/20/23 18:02 20:00 21:00 Temperature 97.8 F Pulse Rate 89 85 87 Respiratory 17 16 17 Rate Blood Pressure 143/81 157/82 142/77 O2 Sat by Pulse 99 100 100 Oximetry 12/20/23 12/20/23 22:00 22:53 Temperature 97.9 F Pulse Rate 99 98 Respiratory 18 17 Rate Blood Pressure 127/66 125/64 O2 Sat by Pulse 99 99 Oximetry - Reevaluation(s) Reevaluation #1: 12/20/23 20:43 Medical records reviewed Reevaluation #2: 12/20/23 20:43 Patient symptoms unchanged Reevaluation #3: 12/20/23 20:43 Patient informed of results and questions answered Reevaluation #4: Was pt. sent in by a medical professional or institution (LOU Rubin, FUNDRAISING ASSISTANT, urgent care, hospital, or long term...) When possible be specific @ -no Did you speak to anyone other than the patient for history (EMS, parent, family, police, friend...)? What history was obtained from this source @ -no Did you review nursing and triage notes (agree or disagree)? Why? @ -agree Are old charts reviewed (outside hosp., previous admission, EMS record, old EKG, old radiological studies, urgent care reports/EKG's, long term records)? Report findings @ -yes Differential Diagnosis (chest pain, altered mental status, abdominal pain women, abdominal pain men, vaginal bleeding, weakness, fever, dyspnea, syncope, headache, dizziness, GI bleed, back pain, seizure, CVA, palpatations, mental health, musculoskeletal)? @ -prior EKG interpreted by me (3pts min.). @ -yes X-rays interpreted by me (1pt min.). @ -no CT interpreted by me (1pt min.). @ -Yes significant cholelithiasis U/S interpreted by me (1pt. min.). @ -Yes for cholelithiasis What testing was considered but not performed or refused? (CT, X-rays, U/S, labs)? Why? @ -none What meds were considered but not given or refused? Why? @ -none Did you discuss the management of the patient with other professionals (professionals i.e. LOU Rubin, FUNDRAISING ASSISTANT, lab, RT, psych nurse, older adult social work specialist, wire technician, t eacher, chief contract officer, lead case manager)? Give summary @ -no Was smoking cessation discussed for >3mins.? @ -no Was critical care preformed (if so, how long)? @ -no Were there social determinants of health that impacted care today? How? (Homelessness, low income, unemployed, alcoholism, drug addiction, transportation, low edu. Level, literacy, decrease access to med. care, intermediate, rehab)? @ -none Was there de-escalation of care discussed even if they declined (Discuss DNR or withdrawal of care, Hospice)? DNR status @ -no What co-morbidities impacted this encounter? (DM, HTN, Smoking, COPD, CAD, Cancer, CVA, ARF, Chemo, Hep., AIDS, mental health diagnosis, sleep apnea, morbid obesity)? @ -none Was patient admitted / discharged? Hospital course, mention meds given and route, prescriptions, significant lab abnormalities, going to OR and other pertinent info. @ - 73 male to ER for evaluation of significantly elevated liver enzymes hepatitis and hyperbilirubinemia with cholelithiasis. Patient will be admitted for surgical evaluation and management GI evaluation Transfer to outside facility Undiagnosed new problem with uncertain prognosis? @ -no Drug Therapy requiring intensive monitoring for toxicity (Heparin, Nitro, Insulin, Cardizem)? @ -no Were any procedures done? @ -no Diagnosis/symptom? @ -Significant hepatitis with cholelithiasis Acute, or Chronic, or Acute on Chronic? @ -Acute Uncomplicated (without systemic symptoms) or Complicated (systemic symptoms)? @ -Complicated Side effects of treatment? @ -no Exacerbation, Progression, or Severe Exacerbation? @ -exacerbation Poses a threat to life or bodily function? How? (Chest pain, [place], VA, pneumonia, PE, COPD, DKA, ARF, appy, cholecystitis, CVA, Diverticulitis, Homicidal, Suicidal, threat to staff... and all critical care pts) @ -yes extremes of age Reevaluation #5: Differential Abdominal Pain Men: Appendicitis, cholecystitis, diverticulosis, ischemic bowel, pancreatitis, hepat itis, UTI, gastroenteritis, AAA, incarcerated hernia, bowel obstruction, constipation, inflammatory bowel, hepatitis, peptic ulcer disease, splenic infarction, perforated viscus, testicular torsion, this is not meant to be an all-inclusive list - Consultations Consultation #1: Spoke with GI at our hospital who refuses to admit this patient as she will not be in the hospital tomorrow Consultation #2: spoke w [facility] Carrasco who accept the patient as a transfer Medical Decision Making - Medical Decision Making 73 male to ER for evaluation of significantly elevated liver enzymes hepatitis and hyperbilirubinemia with cholelithiasis. Patient will be admitted for surgical evaluation and management GI evaluation - Lab Data Result diagrams: 12/20/23 19:21 12/20/23 19:21 Lab Results 12/20/23 12/20/23 12/20/23 Range/Units 16:07 16:07 16:07 WBC 7.7 (3.8-10.6) k/uL RBC 4.38 (4.30-5.90) m/uL Hgb 14.4 (13.0-17.5) gm/dL Hct 44.4 (39.0-53.0) % MCV 101.5 H (80.0-100.0) fL MCH 32.8 (25.0-35.0) pg MCHC 32.4 (31.0-37.0) g/dL RDW 12.7 (11.5-15.5) % Plt Count 241 (150-450) k/uL MPV 9.3 Neutrophils % 76 % Lymphocytes % 15 % Monocytes % 5 % Eosinophils % 2 % Basophils % 0 % Neutrophils # 5.9 (1.3-7.7) k/uL Lymphocytes # 1.1 (1.0-4.8) k/uL Monocytes # 0.4 (0-1.0) k/uL Eosinophils # 0.2 (0-0.7) k/uL Basophils # 0.0 (0-0.2) k/uL PT (10.0-12.5) sec INR (<1.2) APTT (22.0-30.0) sec Sodium 135 L (137-145) mmol/L Potassium 5.5 H (3.5-5.1) mmol/L Chloride 102 (98-107) mmol/L Carbon Dioxide 17 L (22-30) mmol/L Anion Gap 16 mmol/L BUN 28 H (9-20) mg/dL Creatinine 1.57 H (0.66-1.25) mg/dL Est GFR (CKD-EPI)AfAm 50 (>60 ml/min/1.73 sqM) Est GFR (CKD-EPI)NonAf 43 (>60 ml/min/1.73 sqM) Glucose 157 H (74-99) mg/dL Plasma Lactic Acid Eliseo 1.5 (0.7-2.0) mmol/L Calcium 9.6 (8.4-10.2) mg/dL Total Bilirubin 11.7 H (0.2-1.3) mg/dL GGT (0-73) U/L AST 1276 H (17-59) U/L ALT 1534 H (4-49) U/L Alkaline Phosphatase 295 H (38-126) U/L Ammonia (<30) umol/L Creatine Kinase (55-170) U/L Troponin I (0.000-0.034) ng/mL Total Protein 7.6 (6.3-8.2) g/dL Albumin 4.6 (3.5-5.0) g/dL Amylase 76 (30-110) U/L Lipase 183 (23-300) U/L Acetaminophen ug/mL Serum Alcohol <10 mg/dL Hepatitis A IgM Ab (Nonreactive) Hep Bs Antigen (Nonreactive) Hep B Core IgM Ab (Nonreactive) Hep C IgG Ab (Nonreactive) 12/20/23 12/20/23 12/20/23 Range/Units 16:07 16:07 19:21 WBC 7.0 (3.8-10.6) k/uL RBC 4.21 L (4.30-5.90) m/uL Hgb 13.7 (13.0-17.5) gm/dL Hct 42.8 (39.0-53.0) % MCV 101.7 H (80.0-100.0) fL MCH 32.6 (25.0-35.0) pg MCHC 32.1 (31.0-37.0) g/dL RDW 12.6 (11.5-15.5) % Plt Count 220 (150-450) k/uL MPV 9.1 Neutrophils % 75 % Lymphocytes % 17 % Monocytes % 5 % Eosinophils % 2 % Basophils % 0 % Neutrophils # 5.2 (1.3-7.7) k/uL Lymphocytes # 1.2 (1.0-4.8) k/uL Monocytes # 0.4 (0-1.0) k/uL Eosinophils # 0.1 (0-0.7) k/uL Basophils # 0.0 (0-0.2) k/uL PT (10.0-12.5) sec INR (<1.2) APTT (22.0-30.0) sec Sodium (137-145) mmol/L Potassium (3.5-5.1) mmol/L Chloride (98-107) mmol/L Carbon Dioxide (22-30) mmol/L Anion Gap mmol/L BUN (9-20) mg/dL Creatinine (0.66-1.25) mg/dL Est GFR (CKD-EPI)AfAm (>60 ml/min/1.73 sqM) Est GFR (CKD-EPI)NonAf (>60 ml/min/1.73 sqM) Glucose (74-99) mg/dL Plasma Lactic Acid Eliseo (0.7-2.0) mmol/L Calcium (8.4-10.2) mg/dL Total Bilirubin (0.2-1.3) mg/dL GGT (0-73) U/L AST (17-59) U/L ALT (4-49) U/L Alkaline Phosphatase (38-126) U/L Ammonia (<30) umol/L Creatine Kinase 151 (55-170) U/L Troponin I 0.021 (0.000-0.034) ng/mL Total Protein (6.3-8.2) g/dL Albumin (3.5-5.0) g/dL Amylase (30-110) U/L Lipase (23-300) U/L Acetaminophen ug/mL Serum Alcohol mg/dL Hepatitis A IgM Ab (Nonreactive) Hep Bs Antigen (Nonreactive) Hep B Core IgM Ab (Nonreactive) Hep C IgG Ab (Nonreactive) 12/20/23 12/20/23 12/20/23 Range/Units 19:21 19:21 19:21 WBC (3.8-10.6) k/uL RBC (4.30-5.90) m/uL Hgb (13.0-17.5) gm/dL Hct (39.0-53.0) % MCV (80.0-100.0) fL MCH (25.0-35.0) pg MCHC (31.0-37.0) g/dL RDW (11.5-15.5) % Plt Count (150-450) k/uL MPV Neutrophils % % Lymphocytes % % Monocytes % % Eosinophils % % Basophils % % Neutrophils # (1.3-7.7) k/uL Lymphocytes # (1.0-4.8) k/uL Monocytes # (0-1.0) k/uL Eosinophils # (0-0.7) k/uL Basophils # (0-0.2) k/uL PT (10.0-12.5) sec INR (<1.2) APTT (22.0-30.0) sec Sodium 135 L (137-145) mmol/L Potassium 5.4 H (3.5-5.1) mmol/L Chloride 106 (98-107) mmol/L Carbon Dioxide 14 L (22-30) mmol/L Anion Gap 15 mmol/L BUN 25 H (9-20) mg/dL Creatinine 1.45 H (0.66-1.25) mg/dL Est GFR (CKD-EPI)AfAm 54 (>60 ml/min/1.73 sqM) Est GFR (CKD-EPI)NonAf 47 (>60 ml/min/1.73 sqM) Glucose 136 H (74-99) mg/dL Plasma Lactic Acid Eliseo (0.7-2.0) mmol/L Calcium 9.0 (8.4-10.2) mg/dL Total Bilirubin 11.2 H (0.2-1.3) mg/dL GGT 548 H (0-73) U/L AST 898 H (17-59) U/L ALT 1273 H (4-49) U/L Alkaline Phosphatase 252 H (38-126) U/L Ammonia (<30) umol/L Creatine Kinase (55-170) U/L Troponin I (0.000-0.034) ng/mL Total Protein 6.5 (6.3-8.2) g/dL Albumin 3.9 (3.5-5.0) g/dL Amylase (30-110) U/L Lipase 166 (23-300) U/L Acetaminophen ug/mL Serum Alcohol mg/dL Hepatitis A IgM Ab Nonreactive (Nonreactive) Hep Bs Antigen Nonreactive (Nonreactive) Hep B Core IgM Ab Nonreactive (Nonreactive) Hep C IgG Ab Nonreactive (Nonreactive) 12/20/23 12/20/23 12/20/23 Range/Units 19:29 19:43 22:27 WBC (3.8-10.6) k/uL RBC (4.30-5.90) m/uL Hgb (13.0-17.5) gm/dL Hct (39.0-53.0) % MCV (80.0-100.0) fL MCH (25.0-35.0) pg MCHC (31.0-37.0) g/dL RDW (11.5-15.5) % Plt Count (150-450) k/uL MPV Neutrophils % % Lymphocytes % % Monocytes % % Eosinophils % % Basophils % % Neutrophils # (1.3-7.7) k/uL Lymphocytes # (1.0-4.8) k/uL Monocytes # (0-1.0) k/uL Eosinophils # (0-0.7) k/uL Basophils # (0-0.2) k/uL PT 10.8 (10.0-12.5) sec INR 1.0 (<1.2) APTT 18.2 L (22.0-30.0) sec Sodium (137-145) mmol/L Potassium (3.5-5.1) mmol/L Chloride (98-107) mmol/L Carbon Dioxide (22-30) mmol/L Anion Gap mmol/L BUN (9-20) mg/dL Creatinine (0.66-1.25) mg/dL Est GFR (CKD-EPI)AfAm (>60 ml/min/1.73 sqM) Est GFR (CKD-EPI)NonAf (>60 ml/min/1.73 sqM) Glucose (74-99) mg/dL Plasma Lactic Acid Eliseo 1.4 (0.7-2.0) mmol/L Calcium (8.4-10.2) mg/dL Total Bilirubin (0.2-1.3) mg/dL GGT (0-73) U/L AST (17-59) U/L ALT (4-49) U/L Alkaline Phosphatase (38-126) U/L Ammonia <9 (<30) umol/L Creatine Kinase (55-170) U/L Troponin I (0.000-0.034) ng/mL Total Protein (6.3-8.2) g/dL Albumin (3.5-5.0) g/dL Amylase (30-110) U/L Lipase (23-300) U/L Acetaminophen <10.0 ug/mL Serum Alcohol mg/dL Hepatitis A IgM Ab (Nonreactive) Hep Bs Antigen (Nonreactive) Hep B Core IgM Ab (Nonreactive) Hep C IgG Ab (Nonreactive) - Radiology Data Radiology results: report reviewed (Ultrasound shows cholelithiasis CT shows cholelithiasis), image reviewed Disposition Clinical Impression: Abdominal pain, Abdominal colic, Pancreatitis, Acute hepatitis, Cholelithiasis, Hyperbilirubinemia Disposition: TRANSFER TO PSYCH HOSP/UNIT Condition: Fair Is patient prescribed a controlled substance at d/c from ED?: No Referrals: Teofilo Alcantara MD [Primary Care Provider] - 1-2 days Time of Disposition: 20:40 - Out of Hospital Transfer - Req. Specs Out of Hospital Transfer - Requested Specifics: Other Emergency Center ([facility])
[2023-12-20] MEDS: SODIUM CHLORIDE 0.9% 1,000 ML IV STA ×3 (16:24→19:47)
[2023-12-20] MEDS: ONDANSETRON 4 MG/2 ML VIAL IVP STA (16:28)
[2023-12-20] MEDS: PANTOPRAZOLE 40 MG/10 ML VIAL IVP STA (16:29)
[2023-12-20] MEDS: SODIUM CHLORIDE 0.9% 500 ML 500 ML IV STA (16:31)
[2023-12-20 16:35] LABS: Basophils % (A) 0 %; Eosinophils # (A) 0.2 k/uL (0-0.7); Eosinophils % (A) 2 %; HCT 44.4 % (39.0-53.0); HGB 14.4 gm/dL (13.0-17.5); Lymphocytes # (A) 1.1 k/uL (1.0-4.8); Lymphocytes % (A) 15 %; MCH 32.8 pg (25.0-35.0); MCHC 32.4 g/dL (31.0-37.0); MCV 101.5 fL (80.0-100.0); Mean Platelet Volume 9.3; Monocytes # (A) 0.4 k/uL (0-1.0); Monocytes % (A) 5 %; Neutrophils # (A) 5.9 k/uL (1.3-7.7); Neutrophils % (A) 76 %; Platelet Count 241 k/uL (150-450); RBC 4.38 m/uL (4.30-5.90); RDW 12.7 % (11.5-15.5); WBC 7.7 k/uL (3.8-10.6)
[2023-12-20 16:55] LABS: African American GFR (CKD) 50 (>60 ml/min/1.73 sqM); Albumin 4.6 g/dL (3.5-5.0); Alcohol <10 mg/dL; Alkaline Phosphatase 295 U/L (38-126); Amylase 76 U/L (30-110); Anion Gap 16 mmol/L; Blood Urea Nitrogen 28 mg/dL (9-20); Calcium 9.6 mg/dL (8.4-10.2); Carbon Dioxide 17 mmol/L (22-30); Chloride 102 mmol/L (98-107); Glucose 157 mg/dL (74-99); Lipase 183 U/L (23-300); Non-African American GFR(CKD) 43 (>60 ml/min/1.73 sqM); Potassium 5.5 mmol/L (3.5-5.1); Sodium 135 mmol/L (137-145); Total Bilirubin 11.7 mg/dL (0.2-1.3); Total Protein 7.6 g/dL (6.3-8.2)
[2023-12-20 17:05] LABS: ALT 1534 U/L (4-49); AST 1276 U/L (17-59)
--- NOTE | 2023-12-20 18:36 | US ---
EXAMINATION TYPE: US gallbladder DATE OF EXAM: 12/20/2023 COMPARISON: NONE CLINICAL INDICATION: Male, 73 years old with history of pain; abd pain x 2 days TECHNIQUE: Multiple sonographic images of the right upper quadrant are obtained. FINDINGS: EXAM MEASUREMENTS: Liver Length: 15.9 cm Gallbladder Wall: 0.2 cm CBD: 0.9 cm Right Kidney: 8.3 x 4.6 x 4.7 cm Pancreas: Parts seen appear wnl Liver: wnl Gallbladder: Multiple gallstones seen Evidence for sonographic Farley's sign: No CBD: Possibly dilated vs normal for age Right Kidney: Limited due to bowel gas, parts seen appear wnl IMPRESSION: 1. Cholelithiasis. 2. No gallbladder distention, wall thickening, or pericholecystic fluid. The sonographic Farley sign is negative. 3. Mildly prominent common bile duct but no intrahepatic biliary ductal dilatation. 4. Limited evaluation of pancreas and right kidney due to bowel gas.
--- NOTE | 2023-12-20 19:08 | CT ---
EXAMINATION TYPE: CT abdomen pelvis w con DATE OF EXAM: 12/20/2023 COMPARISON: 01/25/2010 HISTORY: Abdomen and back pain. n/v. Hx of pancreatitis. CT DLP: 937.8 mGycm Automated exposure control for dose reduction was used. TECHNIQUE: Helical acquisition of images was performed from the lung bases through the pelvis. CONTRAST: Performed without Oral Contrast and with IV Contrast, patient injected with 80 ml mL of Isovue 300. FINDINGS: The lung bases are clear. There is cholelithiasis without gallbladder distention, wall thickening or pericholecystic fluid.. Th ere is no biliary ductal dilatation. There is no focal mass or organomegaly involving the liver, pancreas, spleen or adrenal glands. There is no solid renal mass or hydronephrosis and there is homogeneous contrast enhancement of the r enal parenchyma. The caliber the abdominal aorta is normal is no retroperitoneal adenopathy or hemorr valarie. The bowel loops are normal in caliber and there is no evidence of dilatation or obstruction. No infla mmatory changes are identified in the bowel wall or mesentery. There is no free intraperitoneal air or fluid. No pelvic mass, free fluid, abscess or adenopathy. There is mild prosthetic enlargement. The osseous structures and soft tissues are intact. IMPRESSION: Cholelithiasis with no other significant abnormality seen.
[2023-12-20 19:44] LABS: Basophils % (A) 0 %; Eosinophils # (A) 0.1 k/uL (0-0.7); Eosinophils % (A) 2 %; HCT 42.8 % (39.0-53.0); HGB 13.7 gm/dL (13.0-17.5); Lymphocytes # (A) 1.2 k/uL (1.0-4.8); Lymphocytes % (A) 17 %; MCH 32.6 pg (25.0-35.0); MCHC 32.1 g/dL (31.0-37.0); MCV 101.7 fL (80.0-100.0); Mean Platelet Volume 9.1; Monocytes # (A) 0.4 k/uL (0-1.0); Monocytes % (A) 5 %; Neutrophils # (A) 5.2 k/uL (1.3-7.7); Neutrophils % (A) 75 %; Platelet Count 220 k/uL (150-450); RBC 4.21 m/uL (4.30-5.90); RDW 12.6 % (11.5-15.5)
[2023-12-20] MEDS: ACETAMINOPHEN IV (For NPO) 1,000 MG in EMPTY BAG 1 BAG IVPB STA (19:44)
[2023-12-20 19:59] LABS: Lactic Acid, Venous 1.4 mmol/L (0.7-2.0)
[2023-12-20 20:00] LABS: African American GFR (CKD) 54 (>60 ml/min/1.73 sqM); Albumin 3.9 g/dL (3.5-5.0); Alkaline Phosphatase 252 U/L (38-126); Anion Gap 15 mmol/L; Blood Urea Nitrogen 25 mg/dL (9-20); Carbon Dioxide 14 mmol/L (22-30); Chloride 106 mmol/L (98-107); Glucose 136 mg/dL (74-99); Lipase 166 U/L (23-300); Non-African American GFR(CKD) 47 (>60 ml/min/1.73 sqM); Potassium 5.4 mmol/L (3.5-5.1); Sodium 135 mmol/L (137-145); Total Bilirubin 11.2 mg/dL (0.2-1.3); Total Protein 6.5 g/dL (6.3-8.2)
[2023-12-20 20:11] LABS: ALT 1273 U/L (4-49); AST 898 U/L (17-59)
[2023-12-20] MEDS ORDERED: NALOXONE 0.4 MG/ML 1 ML VIAL IV PRN (20:39)
[2023-12-20] MEDS ORDERED: ONDANSETRON 4 MG/2 ML VIAL IVP PRN (20:39)
[2023-12-20] MEDS ORDERED: MORPHINE SULFATE 4 MG/ML SYRINGE IV PRN (20:39)
[2023-12-20] MEDS: SODIUM CHLORIDE 0.9% 1,000 ML IV SCH (20:54)
[2023-12-20 22:55] LABS: Prothrombin Time 10.8 sec (10.0-12.5)
[2023-12-20] MEDS: MORPHINE SULFATE 4 MG/ML SYRINGE IVP STA (22:55)
[2023-12-20 22:57] LABS: Partial Thromboplastin Time 18.2 sec (22.0-30.0)
[2023-12-20 23:02] VITALS: BP 125/64; PULSE 98; RESP 17; TEMP 97.9
[2023-12-21 04:30] LABS: Hepatitis A Antibody IgM Nonreactive (Nonreactive); Hepatitis B Core IgM Nonreactive (Nonreactive); Hepatitis B Surface Antigen Nonreactive (Nonreactive); Hepatitis C IgG Antibody Nonreactive (Nonreactive)
== END 2023-12-20 22:53 ==
LOC: EC 15:28 → 5NMEDONC 20:41 → UNDOADMIN 20:41 → EC 22:53
DX: B17.9 Acute viral hepatitis, unspecified (principal); K85.90 Acute pancreatitis without necrosis or infection, unspecified; K80.20 Calculus of gallbladder without cholecystitis without obstruction; E80.6 Other disorders of bilirubin metabolism; I63.9 Cerebral infarction, unspecified; Z87.891 Personal history of nicotine dependence
CPT/HCPCS: 99285; 96374; 96375; 96361 ×4; 36415; 80053; 80074; 82140; 82150; 82550; 82977; 83605; 83690; 84484; 85025; 85610; 85730; 80143; 76705; 74177; G0480; J2405; C9113; Q9967; 80320

== ENCOUNTER 2023-12-30 12:38 | Inpatient (IN) | payer MEDICARE ==
--- NOTE | 2023-12-30 12:50 | ED ---
General Adult HPI - General Stated complaint: Weakness Time Seen by Provider: 12/30/23 12:41 Source: patient, RN notes reviewed, old records reviewed - History of Present Illness Initial comments: Is a 73-year-old male who presents emergency department over concern for lightheadedness and weakness. Has a history of diabetes, hypertension. Recently had a cholecystectomy completed at [facility]. Just returned home on . During his hospital stay, he was taken off of his Jardiance. Is only on low-dose insulin at home otherwise. States he was also discharged home with a Blancas catheter and a SUZETTE drain. Denies any abdominal pain, nausea, vomiting, constipation, diarrhea. States he does feel weak. Sugars have been above 500 at home. Denies any fevers or chills or cough. Denies any sick contacts. Presents for further evaluation at this time.Patient was walking for EMS and apparently had a near syncope episode for them as well. Presents for further evaluation at this time. Family states that when his sugar is too high or too low to EMS, patient asked this way. Accu-Chek at the scene was over 500. - Related Data Home Medications Medication Instructions Recorded Confirmed Atorvastatin [Lipitor] 40 mg PO DAILY 05/09/22 12/30/23 Insulin Glargine,Hum.rec.anlog 10 unit SQ DAILY PRN 05/09/22 12/30/23 [Lantus Solostar Pen] Latanoprost Ophth [Xalatan 0.005%] 1 drop LEFT EYE HS 05/09/22 12/30/23 Brimonidine Tartrate [Alphagan P 1 drops BOTH EYES TID 12/20/23 12/30/23 0.2% Ophth Soln] lisinopriL [Zestril] 10 mg PO DAILY 12/20/23 12/30/23 methIMAzole [Tapazole] 5 mg PO DAILY 12/20/23 12/30/23 Amoxic-Pot Clav 875-125Mg 1 tab PO BID 12/30/23 12/30/23 [Augmentin 875-125] Allergies Allergy/AdvReac Type Severity Reaction Status Date / Time No Known Allergies Allergy Verified 12/30/23 13:08 Review of Systems ROS Statement: Those systems with pertinent positive or pertinent negative responses have been documented in the HPI. Review of Systems: CONST: Denies fever EYES: Denies blurry vision ENT: Denies nasal congestion C/V: Denies Chest pain RESP: Denies shortness of breath GI: Denies abdominal pain : Denies dysuria SKIN: Denies rash. MSK: Denies joint pain. NEURO: Endorses general weakness ROS Other: All systems not noted in ROS Statement are negative. Past Medical History Past Medical History: Diabetes Mellitus, Eye Disorder, Hypertension, Thyroid Disorder Additional Past Medical History / Comment(s): GLAUCOMA. PANCREATITIS History of Any Multi-Drug Resistant Organisms: None Reported Additional Past Surgical History / Comment(s): BILATERAL CATARACTS/WITH LENS. COLONOSCOPIES. Additional Past Anesthesia/Blood Transfusion Reaction / Comment(s): GENERAL ANESTHESIA. Past Psychological History: No Psychological Hx Reported Smoking Status: Former smoker Past Alcohol Use History: Rare Past Drug Use History: None Reported General Exam - General Exam Comments Initial Comments: General: Appears in no acute distress. HEAD: Normal with no signs of head trauma. EYES: PERRLA, EOMI, conjunctiva normal, no discharge. Pupils are 3 mm and equal bilaterally. ENT: Hearing grossly intact, normal oropharynx. Mildly dry mucous membranes RESPIRATORY: Clear breath sounds bilaterally. No wheezes, rales, or rhonchi. C/V: Regular rate and rhythm. S1 and S2 auscultated, no edema, peripheral pulses 2+ and intact throughout ABD: Abd is soft, nontender, nondistended. SUZETTE drain in place and is draining serosanguineous fluid. Patient states this is improving. Blancas catheter is also in place. EXT: Normal range of motion, no obvious deformity SKIN: No rashes or lesions observed on exposed skin. NEURO: Alert and oriented x 4. Cranial nerves II-XII intact. No focal sensory or strength deficits. GCS 15. NIH is 0. Course Vital Signs 12/30/23 12/30/23 12/30/23 12:41 13:00 13:30 Temperature 97.6 F Pulse Rate 104 H Respiratory 16 Rate Blood Pressure 95/57 95/57 105/65 O2 Sat by Pulse 96 95 98 Oximetry 12/30/23 12/30/23 12/30/23 14:00 15:00 16:00 Temperature Pulse Rate 99 97 Respiratory 18 18 Rate Blood Pressure 115/70 105/67 104/66 O2 Sat by Pulse 97 96 Oximetry 12/30/23 12/30/23 12/30/23 17:00 18:00 19:00 Temperature Pulse Rate 101 H 99 97 Respiratory 18 18 18 Rate Blood Pressure 105/67 109/67 76/53 O2 Sat by Pulse 96 97 96 Oximetry Medical Decision Making - Medical Decision Making Was pt. sent in by a medical professional or institution (, LOU, PEDIATRIC IMMUNOLOGIST, urgent care, hospital, or fpc...) When possible be specific @ -No Did you speak to anyone other than the patient for history (EMS, parent, family, police, friend...)? What history was obtained from this source @ -No Did you review nursing and triage notes (agree or disagree)? Why? @ -I reviewed and agree with nursing and triage notes Were old charts reviewed (outside hosp., previous admission, EMS record, old EKG, old radiological studies, urgent care reports/EKG's, fpc records)? Report findings @ -Old charts reviewed from recent as it when patient was transferred to [facility] for cholecystectomy and medication list was evaluated from that time showing he was on Jardiance at that time. Differential Diagnosis (chest pain, altered mental status, abdominal pain women, abdominal pain men, vaginal bleeding, weakness, fever, dyspnea, syncope, headach e, dizziness, GI bleed, back pain, seizure, CVA, palpatations, mental health, musculoskeletal)? @ -Differential Weakness: Hypoglycemia, shock, sepsis, hyponatremia, anemia, infection, SD, ETOH, adverse medicine reaction, overdose, stroke, this is not meant to be an all-inclusive list. EKG interpreted by me (3pts min.). @ -As above X-rays interpreted by me (1pt min.). @ -X-ray reveals possible hilar adenopathy but nonemergent CT recommended by radiology for follow-up. CT interpreted by me (1pt min.). @ -CT abdomen and pelvis reveals findings consistent with recent laparoscopic surgery and cholecystectomy. U/S interpreted by me (1pt. min.). @ -None done What testing was considered but not performed or refused? (CT, X-rays, U/S, labs)? Why? @ -None What meds were considered but not given or refused? Why? @ -None Did you discuss the management of the patient with other professionals (professionals i.e. Dr., PA, PEDIATRIC IMMUNOLOGIST, lab, RT, psych nurse, addiction social worker, product lead, teacher, retirement officer, case planner)? Give summary @ - spoke with the admitting team, Dr. De Souza of [facility] who accepted the admission as long as Dr. Cabrera of surgery is also in agreement with consult for the SUZETTE drain management and evaluation considering the recent surgery. I spoke with him and he was in agreement with this plan. Was smoking cessation discussed for >3mins.? @ -No Was critical care preformed (if so, how long)? @ -No Were there social determinants of health that impacted care today? How? (Homeles sness, low income, unemployed, alcoholism, drug addiction, transportation, low edu. Level, literacy, decrease access to med. care, fdc, rehab)? @ -No Was there de-escalation of care discussed even if they declined (Discuss DNR or withdrawal of care, Hospice)? DNR status @ -No What co-morbidities impacted this encounter? (DM, HTN, Smoking, COPD, CAD, Cancer, CVA, ARF, Chemo, Hep., AIDS, mental health diagnosis, sleep apnea, morbid obesity)? @ -Diabetes, recent cholecystectomy, Blancas catheter in place Was patient admitted / discharged? Hospital course, mention meds given and route, prescriptions, significant lab abnormalities, going to OR and other pertinent info. @ -Based on patient's presentation and physical exam, presents emergency department complaining of generalized weakness for few days. Was taken off of Jardiance after recent hospital stay at [facility] for chol ecystectomy. Currently has SUZETTE drain in place which is draining serosanguineous fluid and causing no distress. Patient also has Blancas catheter in place which has been in place since discharge also causing no acute distress. Patient states he feels weak but otherwise has no other acute complaints. We will obtain DKA workup as well as infectious workup for the patient at this time. Patient was in agreement this plan. He will be given IV fluids. Vital signs are currently within acceptable limits. Patient's imaging unremarkable for any obvious acute process. Patient's laboratory studies remarkable for an anemia of 9.6 likely related to the recent surgery, no evidence of DKA, hyperglycemia, as well as an SONNY. Lactic acid slightly elevated as well. Acetone negative. On reevaluation, vital signs remained within acceptable limits. He is feeling improved at this time. I discussed that I would like to admit him for weakness, rehydration in the setting of his hyperglycemia. He was in agreement this plan. Does does not appear to be a surgical complication therefore I do not believe the patient requires transfer. I spoke with the admitting team, Dr. De Souza of [facility] who accepted the admission as long as Dr. Cabrera of surgery is also in agreement with consult for the SUZETTE drain management and evaluation considering the recent surgery. I spoke with him and he was in agreement with this plan. Home meds will be reordered including the Augmentin. Patient placed on sliding scale insulin drip and will be given a dose of insulin now. Patient in agreement this plan. Family and patient updated. They were in agreement this plan. Undiagnosed new problem with uncertain prognosis? @ -No Drug Therapy requiring intensive monitoring for toxicity (Heparin, Nitro, Insulin, Cardizem)? @ -No Were any procedures done? @ -No Diagnosis/symptom? @ -Weakness, dehydration, hyperglycemia Acute, or Chronic, or Acute on Chronic? @ -Acute Uncomplicated (without systemic symptoms) or Complicated (systemic symptoms)? @ -Complicated Side effects of treatment? @ -None Exacerbation, Progression, or Severe Exacerbation] @ -No Poses a threat to life or bodily function? @ -Yes - Lab Data Result diagrams: 12/30/23 12:59 12/30/23 12:59 Lab Results 12/30/23 12/30/23 12/30/23 Range/Units 12:52 12:59 12:59 WBC 7.4 (3.8-10.6) k/uL RBC 2.92 L (4.30-5.90) m/uL Hgb 9.6 L D (13.0-17.5) gm/dL Hct 32.3 L (39.0-53.0) % MCV 110.8 H D (80.0-100.0) fL MCH 33.1 (25.0-35.0) pg MCHC 29.8 L (31.0-37.0) g/dL RDW 13.3 (11.5-15.5) % Plt Count 306 (150-450) k/uL MPV 10.0 Neutrophils % 74 % Lymphocytes % 16 % Monocytes % 8 % Eosinophils % 1 % Basophils % 0 % Neutrophils # 5.5 (1.3-7.7) k/uL Lymphocytes # 1.2 (1.0-4.8) k/uL Monocytes # 0.6 (0-1.0) k/uL Eosinophils # 0.0 (0-0.7) k/uL Basophils # 0.0 (0-0.2) k/uL Manual Slide Review Performed Polychromasia Present Hypochromasia Marked Macrocytosis Marked A PT 10.7 (10.0-12.5) sec INR 1.0 (<1.2) APTT 25.0 (22.0-30.0) sec VBG pH (7.31-7.41) VBG pCO2 (37-51) mmHg VBG HCO3 (24-28) mmol/L Sodium (137-145) mmol/L Potassium (3.5-5.1) mmol/L Chloride (98-107) mmol/L Carbon Dioxide (22-30) mmol/L Anion Gap mmol/L BUN (9-20) mg/dL Creatinine (0.66-1.25) mg/dL Est GFR (CKD-EPI)AfAm (>60 ml/min/1.73 sqM) Est GFR (CKD-EPI)NonAf (>60 ml/min/1.73 sqM) Glucose (74-99) mg/dL POC Glucose (mg/dL) 456 H (70-110) mg/dL POC Glu Aws Consultant ID Alda Cardozo Lactic Ac Sepsis Rflx Plasma Lactic Acid Eliseo (0.7-2.0) mmol/L Calcium (8.4-10.2) mg/dL Magnesium (1.6-2.3) mg/dL Total Bilirubin (0.2-1.3) mg/dL AST (17-59) U/L ALT (4-49) U/L Alkaline Phosphatase (38-126) U/L Total Protein (6.3-8.2) g/dL Albumin (3.5-5.0) g/dL Urine Color Urine Appearance (Clear) Urine pH (5.0-8.0) Ur Specific [place] (1.001-1.035) Urine Protein (Negative) Urine Glucose (UA) (Negative) Urine Ketones (Negative) Urine Blood (Negative) Urine Nitrite (Negative) Urine Bilirubin (Negative) Urine Urobilinogen (<2.0) mg/dL Ur Leukocyte Esterase (Negative) Urine RBC (0-5) /hpf Urine WBC (0-5) /hpf Ur Squamous Epith Cells (0-4) /hpf Urine Bacteria (None) /hpf Urine Mucus (None) /hpf Acetone, Qual (Negative) Influenza Type A (PCR) (Not Detectd) Influenza Type B (PCR) (Not Detectd) RSV (PCR) (Not Detectd) SARS-CoV-2 (PCR) (Not Detectd) Blood Type Blood Type Confirm Blood Type Recheck Bld Type Recheck Status Antibody Screen Spec Expiration Date 12/30/23 12/30/23 12/30/23 Range/Units 12:59 13:00 13:05 WBC (3.8-10.6) k/uL RBC (4.30-5.90) m/uL Hgb (13.0-17.5) gm/dL Hct (39.0-53.0) % MCV (80.0-100.0) fL MCH (25.0-35.0) pg MCHC (31.0-37.0) g/dL RDW (11.5-15.5) % Plt Count (150-450) k/uL MPV Neutrophils % % Lymphocytes % % Monocytes % % Eosinophils % % Basophils % % Neutrophils # (1.3-7.7) k/uL Lymphocytes # (1.0-4.8) k/uL Monocytes # (0-1.0) k/uL Eosinophils # (0-0.7) k/uL Basophils # (0-0.2) k/uL Manual Slide Review Polychromasia Hypochromasia Macrocytosis PT (10.0-12.5) sec INR (<1.2) APTT (22.0-30.0) sec VBG pH (7.31-7.41) VBG pCO2 (37-51) mmHg VBG HCO3 (24-28) mmol/L Sodium 130 L (137-145) mmol/L Potassium 3.9 (3.5-5.1) mmol/L Chloride 101 (98-107) mmol/L Carbon Dioxide 14 L (22-30) mmol/L Anion Gap 15 mmol/L BUN 29 H (9-20) mg/dL Creatinine 2.00 H (0.66-1.25) mg/dL Est GFR (CKD-EPI)AfAm 37 (>60 ml/min/1.73 sqM) Est GFR (CKD-EPI)NonAf 32 (>60 ml/min/1.73 sqM) Glucose 457 H (74-99) mg/dL POC Glucose (mg/dL) (70-110) mg/dL POC Glu Aws Consultant ID Lactic Ac Sepsis Rflx Plasma Lactic Acid Eliseo (0.7-2.0) mmol/L Calcium 7.6 L (8.4-10.2) mg/dL Magnesium 2.1 (1.6-2.3) mg/dL Total Bilirubin 1.5 H (0.2-1.3) mg/dL AST 39 (17-59) U/L ALT 81 H (4-49) U/L Alkaline Phosphatase 148 H (38-126) U/L Total Protein 5.8 L (6.3-8.2) g/dL Albumin 3.1 L (3.5-5.0) g/dL Urine Color Urine Appearance (Clear) Urine pH (5.0-8.0) Ur Specific [place] (1.001-1.035) Urine Protein (Negative) Urine Glucose (UA) (Negative) Urine Ketones (Negative) Urine Blood (Negative) Urine Nitrite (Negative) Urine Bilirubin (Negative) Urine Urobilinogen (<2.0) mg/dL Ur Leukocyte Esterase (Negative) Urine RBC (0-5) /hpf Urine WBC (0-5) /hpf Ur Squamous Epith Cells (0-4) /hpf Urine Bacteria (None) /hpf Urine Mucus (None) /hpf Acetone, Qual Negative (Negative) Influenza Type A (PCR) (Not Detectd) Influenza Type B (PCR) (Not Detectd) RSV (PCR) (Not Detectd) SARS-CoV-2 (PCR) (Not Detectd) Blood Type Blood Type Confirm O Negative Blood Type Recheck No Previous Record Bld Type Recheck Status CABO Indicated Antibody Screen Spec Expiration Date 12/30/23 12/30/23 12/30/23 12/30/23 Range/Units 13:08 13:08 13:16 WBC (3.8-10.6) k/uL RBC (4.30-5.90) m/uL Hgb (13.0-17.5) gm/dL Hct (39.0-53.0) % MCV (80.0-100.0) fL MCH (25.0-35.0) pg MCHC (31.0-37.0) g/dL RDW (11.5-15.5) % Plt Count (150-450) k/uL MPV Neutrophils % % Lymphocytes % % Monocytes % % Eosinophils % % Basophils % % Neutrophils # (1.3-7.7) k/uL Lymphocytes # (1.0-4.8) k/uL Monocytes # (0-1.0) k/uL Eosinophils # (0-0.7) k/uL Basophils # (0-0.2) k/uL Manual Slide Review Polychromasia Hypochromasia Macrocytosis PT (10.0-12.5) sec INR (<1.2) APTT (22.0-30.0) sec VBG pH 7.34 (7.31-7.41) VBG pCO2 35 L (37-51) mmHg VBG HCO3 19 L (24-28) mmol/L Sodium (137-145) mmol/L Potassium (3.5-5.1) mmol/L Chloride (98-107) mmol/L Carbon Dioxide (22-30) mmol/L Anion Gap mmol/L BUN (9-20) mg/dL Creatinine (0.66-1.25) mg/dL Est GFR (CKD-EPI)AfAm (>60 ml/min/1.73 sqM) Est GFR (CKD-EPI)NonAf (>60 ml/min/1.73 sqM) Glucose (74-99) mg/dL POC Glucose (mg/dL) (70-110) mg/dL POC Glu Aws Consultant ID Lactic Ac Sepsis Rflx Plasma Lactic Acid Eliseo (0.7-2.0) mmol/L Calcium (8.4-10.2) mg/dL Magnesium (1.6-2.3) mg/dL Total Bilirubin (0.2-1.3) mg/dL AST (17-59) U/L ALT (4-49) U/L Alkaline Phosphatase (38-126) U/L Total Protein (6.3-8.2) g/dL Albumin (3.5-5.0) g/dL Urine Color Light Yellow Urine Appearance Clear (Clear) Urine pH 5.0 (5.0-8.0) Ur Specific [place] 1.025 (1.001-1.035) Urine Protein Negative (Negative) Urine Glucose (UA) 4+ H (Negative) Urine Ketones Negative (Negative) Urine Blood Small H (Negative) Urine Nitrite Negative (Negative) Urine Bilirubin Negative (Negative) Urine Urobilinogen <2.0 (<2.0) mg/dL Ur Leukocyte Esterase Negative (Negative) Urine RBC 16 H (0-5) /hpf Urine WBC 3 (0-5) /hpf Ur Squamous Epith Cells <1 (0-4) /hpf Urine Bacteria Rare H (None) /hpf Urine Mucus Rare H (None) /hpf Acetone, Qual (Negative) Influenza Type A (PCR) Not Detected (Not Detectd) Influenza Type B (PCR) Not Detected (Not Detectd) RSV (PCR) Not Detected (Not Detectd) SARS-CoV-2 (PCR) Not Detected (Not Detectd) Blood Type Blood Type Confirm Blood Type Recheck Bld Type Recheck Status Antibody Screen Spec Expiration Date 12/30/23 12/30/23 12/30/23 Range/Units 15:02 15:02 15:23 WBC (3.8-10.6) k/uL RBC (4.30-5.90) m/uL Hgb (13.0-17.5) gm/dL Hct (39.0-53.0) % MCV (80.0-100.0) fL MCH (25.0-35.0) pg MCHC (31.0-37.0) g/dL RDW (11.5-15.5) % Plt Count (150-450) k/uL MPV Neutrophils % % Lymphocytes % % Monocytes % % Eosinophils % % Basophils % % Neutrophils # (1.3-7.7) k/uL Lymphocytes # (1.0-4.8) k/uL Monocytes # (0-1.0) k/uL Eosinophils # (0-0.7) k/uL Basophils # (0-0.2) k/uL Manual Slide Review Polychromasia Hypochromasia Macrocytosis PT (10.0-12.5) sec INR (<1.2) APTT (22.0-30.0) sec VBG pH (7.31-7.41) VBG pCO2 (37-51) mmHg VBG HCO3 (24-28) mmol/L Sodium (137-145) mmol/L Potassium (3.5-5.1) mmol/L Chloride (98-107) mmol/L Carbon Dioxide (22-30) mmol/L Anion Gap mmol/L BUN (9-20) mg/dL Creatinine (0.66-1.25) mg/dL Est GFR (CKD-EPI)AfAm (>60 ml/min/1.73 sqM) Est GFR (CKD-EPI)NonAf (>60 ml/min/1.73 sqM) Glucose (74-99) mg/dL POC Glucose (mg/dL) (70-110) mg/dL POC Glu Aws Consultant ID Lactic Ac Sepsis Rflx Y Plasma Lactic Acid Eliseo 2.3 H* (0.7-2.0) mmol/L Calcium (8.4-10.2) mg/dL Magnesium (1.6-2.3) mg/dL Total Bilirubin (0.2-1.3) mg/dL AST (17-59) U/L ALT (4-49) U/L Alkaline Phosphatase (38-126) U/L Total Protein (6.3-8.2) g/dL Albumin (3.5-5.0) g/dL Urine Color Urine Appearance (Clear) Urine pH (5.0-8.0) Ur Specific [place] (1.001-1.035) Urine Protein (Negative) Urine Glucose (UA) (Negative) Urine Ketones (Negative) Urine Blood (Negative) Urine Nitrite (Negative) Urine Bilirubin (Negative) Urine Urobilinogen (<2.0) mg/dL Ur Leukocyte Esterase (Negative) Urine RBC (0-5) /hpf Urine WBC (0-5) /hpf Ur Squamous Epith Cells (0-4) /hpf Urine Bacteria (None) /hpf Urine Mucus (None) /hpf Acetone, Qual (Negative) Influenza Type A (PCR) (Not Detectd) Influenza Type B (PCR) (Not Detectd) RSV (PCR) (Not Detectd) SARS-CoV-2 (PCR) (Not Detectd) Blood Type O Negative Blood Type Confirm Blood Type Recheck No Previous Record Bld Type Recheck Status CABO Indicated Antibody Screen NEGATIVE Spec Expiration Date 01/02/2024 - 2302 - EKG Data -: EKG Interpreted by Me EKG Comments: 12-lead Electrocardiogram Interpretation Note EKG was reviewed and interpreted by myself. 12-lead ECG performed at 1312 is interpreted by me as revealing tachycardia at a rate of 106 beats per minute. [place] is normal. GA interval is 132 ms, QRS durations 117 ms, QTc is 416 ms.. There were no ST or T wave abnormalities to suggest myocardial ischemia or injury. R wave progression across the precordium was satisfactory. By my interpretation this EKG is non-diagnostic for acute ischemia. Disposition Clinical Impression: Weakness, Dehydration, Hyperglycemia Disposition: ADMITTED IP TO THIS HOSP Condition: Stable Time of Disposition: 15:27
[2023-12-30 12:53] LABS: Glucose,Whole Blood 456 mg/dL (70-110)
[2023-12-30] MEDS: SODIUM CHLORIDE 0.9% 1,000 ML IV STA ×2 (13:18)
[2023-12-30] MEDS: ONDANSETRON 4 MG/2 ML VIAL IVP STA (13:24)
[2023-12-30 13:38] LABS: VBG PH 7.34 (7.31-7.41)
--- NOTE | 2023-12-30 13:50 | XR ---
EXAMINATION TYPE: XR chest 2V DATE OF EXAM: 12/30/2023 COMPARISON: None HISTORY: 73-year-old male with weakness TECHNIQUE: AP and lateral views FINDINGS: There is central opacity on the lateral view in the region of the right main pulmonary artery. Unclea r if this represents a hilar abnormality such as lymph nodes or pulmonary artery enlargement. Otherwi se, heart is normal size. No consolidation or pleural effusion is otherwise seen. IMPRESSION: Possible abnormal opacity on the lateral view in the region of the right main pulmonary artery. No ac george process seen on the frontal view. Nonemergent follow-up contrast enhanced CT chest to exclude und erlying hilar adenopathy or mass.
[2023-12-30 13:51] LABS: ALT 81 U/L (4-49); African American GFR (CKD) 37 (>60 ml/min/1.73 sqM); Albumin 3.1 g/dL (3.5-5.0); Anion Gap 15 mmol/L; Basophils % (A) 0 %; Blood Urea Nitrogen 29 mg/dL (9-20); Calcium 7.6 mg/dL (8.4-10.2); Carbon Dioxide 14 mmol/L (22-30); Chloride 101 mmol/L (98-107); Eosinophils % (A) 1 %; Glucose 457 mg/dL (74-99); HCT 32.3 % (39.0-53.0); Hypochromasia Marked; Lymphocytes # (A) 1.2 k/uL (1.0-4.8); Lymphocytes % (A) 16 %; MCH 33.1 pg (25.0-35.0); MCHC 29.8 g/dL (31.0-37.0); Macrocytosis Marked; Monocytes # (A) 0.6 k/uL (0-1.0); Monocytes % (A) 8 %; Neutrophils # (A) 5.5 k/uL (1.3-7.7); Neutrophils % (A) 74 %; Non-African American GFR(CKD) 32 (>60 ml/min/1.73 sqM); Platelet Count 306 k/uL (150-450); RBC 2.92 m/uL (4.30-5.90); RDW 13.3 % (11.5-15.5); Sodium 130 mmol/L (137-145); Total Bilirubin 1.5 mg/dL (0.2-1.3); Total Protein 5.8 g/dL (6.3-8.2); WBC 7.4 k/uL (3.8-10.6)
[2023-12-30 13:54] LABS: HGB 9.6 gm/dL (13.0-17.5)
[2023-12-30 13:55] LABS: MCV 110.8 fL (80.0-100.0)
[2023-12-30 13:56] LABS: AST 39 U/L (17-59); Alkaline Phosphatase 148 U/L (38-126); Magnesium 2.1 mg/dL (1.6-2.3); Potassium 3.9 mmol/L (3.5-5.1)
[2023-12-30 14:06] LABS: Prothrombin Time 10.7 sec (10.0-12.5)
[2023-12-30 14:10] LABS: Appearance,Urine Clear (Clear); Bacteria,Urine Rare /hpf; Bilirubin,Urine Negative (Negative); Blood,Urine Small (Negative); Color,Urine Light Yellow; Glucose,Urine (UA) 4+ (Negative); Ketones,Urine Negative (Negative); Leukocyte Esterase,Urine Negative (Negative); Mucus,Urine Rare /hpf; Nitrite,Urine Negative (Negative); Protein,Urine Negative (Negative); RBC,Urine 16 /hpf (0-5); Specific Gravity,Urine 1.025 (1.001-1.035); Squamous Epithelial Cell,Urine <1 /hpf (0-4); Urobilinogen,Urine <2.0 mg/dL (<2.0); WBC,Urine 3 /hpf (0-5)
[2023-12-30 14:19] LABS: Polychromasia Present
--- NOTE | 2023-12-30 15:00 | CT ---
EXAMINATION TYPE: CT abdomen pelvis w con DATE OF EXAM: 12/30/2023 COMPARISON: 12/20/2023 HISTORY: Post cholecystectomy, weakness CT DLP: 1000.8 mGycm Automated exposure control for dose reduction was used. TECHNIQUE: Helical acquisition of images was performed from the lung bases through the pelvis. CONTRAST: Performed without Oral Contrast and with IV Contrast, patient injected with 100 mL of Isovue 300. FINDINGS: The lung bases are clear. There is surgical absence of the gallbladder. There is a percutaneous drain along the medial aspect o f the liver. There is a collection of gas and fat density in the gallbladder fossa consistent with po stsurgical change. There is no discrete abscess or fluid collection. There is no focal mass or organomegaly involving the liver, pancreas, spleen or adrenal glands. There is no biliary ductal dilatation. There is no solid renal mass or hydronephrosis and there is homogeneous contrast enhancement of the r enal parenchyma. The caliber the abdominal aorta is normal is no retroperitoneal adenopathy or hemorr avlarie. The bowel loops are normal in caliber and there is no evidence of dilatation or obstruction. No infla mmatory changes are identified in the bowel wall or mesentery. There is a small amount of free intraperitoneal air beneath the diaphragm and there is a small amount of air in the subcutaneous soft tissues of the right upper anterior abdominal wall near the insertio n of the drainage catheter. There is no free intraperitoneal fluid. No pelvic mass, free fluid, abscess or adenopathy. There is mild prostatic hypertrophy. There is a Fo cb catheter in the urinary bladder. The osseous structures and soft tissues are intact. IMPRESSION: 1. Status post recent cholecystectomy with postsurgical changes and right upper quadrant drainage cat heter as described above. 2. No free intraperitoneal fluid or abscess within the abdomen or pelvis. 3. No bowel obstruction. 4. Free intraperitoneal air and subcutaneous air as described above.
[2023-12-30] MEDS ORDERED: NALOXONE 0.4 MG/ML 1 ML VIAL IV PRN (15:27)
[2023-12-30] MEDS ORDERED: ACETAMINOPHEN TAB 325 MG TAB PO PRN (15:27)
[2023-12-30] MEDS ORDERED: ONDANSETRON 4 MG/2 ML VIAL IVP PRN (15:27)
[2023-12-30 15:49] LABS: Glucose,Whole Blood 425 mg/dL (70-110)
[2023-12-30] MEDS: SODIUM CHLORIDE 0.9% 1,000 ML IV SCH (15:51)
[2023-12-30] MEDS ORDERED: DEXTROSE 50% SYRINGE 50 ML IVP PRN ×2 (15:51)
[2023-12-30] MEDS: INSULIN ASPART (NovoLOG) 100 UNIT/ML VIAL SQ STA (16:07)
[2023-12-30 17:36] LABS: Glucose,Whole Blood 274 mg/dL (70-110)
[2023-12-30] MEDS: INSULIN ASPART (NovoLOG) 100 UNIT/ML VIAL SQ SCH (19:11)
[2023-12-30] MEDS: PANTOPRAZOLE 40 MG/10 ML VIAL IVP SCH (19:12)
[2023-12-30] MEDS: BRIMONIDINE TARTRATE 0.2% DROPS 5 ML BTL BOTH EYES SCH (19:42)
[2023-12-30 21:57] LABS: Glucose,Whole Blood 221 mg/dL (70-110)
--- NOTE | 2023-12-30 21:59 | HP ---
HISTORY AND PHYSICAL REASON FOR CONSULTATION: Weakness and high blood sugars. HISTORY OF PRESENT ILLNESS: This is a 73-year-old gentleman with a past medical history of diabetes mellitus, recently evaluated in the hospital and subsequently referred to Josh Carrasco for choledocholithiasis. The patient underwent ERCP apparently and as well as surgery. Multiple gallstones were detected. SUZETTE drain was inserted. The patient was sent home on antibiotics and other medications, apparently Jardiance was stopped, and the patient is not taking any medication at this time, and the patient complained of weakness. Blood sugar was found to be more than 500, and the patient was admitted for further evaluation and treatment. There is no history of any fever, rigors, chills. The patient is mildly confused. Abdominal pelvis CAT scan was reviewed. PAST MEDICAL HISTORY: Reviewed and include diabetes mellitus type 2 and recent gallbladder surgery, other antecedent events as mentioned earlier. For rest of history, see chart, is also reviewed. HOME MEDICATIONS: Reviewed and include Augmentin, dose and rest of medications reviewed. ALLERGIES: None. FAMILY HISTORY: No history of heart disease or strokes in the family. SOCIAL HISTORY: Previous history of smoking. REVIEW OF SYSTEMS: Fourteen-point review of systems negative except as mentioned earlier. PHYSICAL EXAMINATION: VITAL SIGNS: Pulse is 104, blood pressure 95/57, respirations 16. HEENT: Conjunctivae normal. Oral mucosa is dry. NECK: No jugular venous distention. CARDIOVASCULAR: S1, S2. RESPIRATIONS: Breath sounds diminished at the bases. ABDOMEN: Soft. Status post surgery. SUZETTE drain with thin serosanguineous fluid present, otherwise, abdomen is soft. No guarding. No rigidity. No mass palpable. LEGS: No edema, no swelling. NERVOUS SYSTEM: Mild diffuse weakness. SKIN: No rashes. JOINTS: No active deforming arthropathy. LABORATORY DATA: WBC 7, hemoglobin 9.6, lactic acid is 2.3. ASSESSMENT: 1. Diabetes mellitus, type 2, uncontrolled with no evidence of ketosis. 2. Dehydration, acute renal failure. 3. Recent laparoscopic cholecystectomy as well as SUZETTE drain and ERCP possibly. 4. Hyponatremia. 5. Diabetes mellitus, type 2. 6. Elevated bilirubin and LFTs, improving. 7. Hypertension. 8. History of pancreatitis. 9. Multiple complex medical issues. RECOMMENDATIONS AND DISCUSSION: This is a [id number], who presented with multiple complex medical issues. At this time, I recommended to continue the current medications. I would recommend monitor the blood sugars closely. Blood pressure remains high after intravenous insulin. I would recommend IV insulin drip and continue to monitor Jardiance, may be restarted once the patient is stabilized. Surgical evaluation. Continue the antibiotics. Continue rest of medications. DVT prophylaxis. Overall prognosis guarded because of multiple complex medical issues. Further recommendations to follow. See orders for details. Discussed at length with the family at the bedside. MMODL / IJN: [id number] /
[2023-12-30] MEDS: AMOXIC-POT CLAV 875-125MG 1 EACH TAB PO SCH (22:16)
[2023-12-30] MEDS: HEPARIN SODIUM,PORCINE 5,000 UNIT/ML 1 ML VIAL SQ SCH (22:18)
[2023-12-30] MEDS: LATANOPROST 0.005% OPHTH DROPS 2.5 ML BTL LEFT EYE SCH (22:18)
[2023-12-31 01:16] LABS: Glucose,Whole Blood 190 mg/dL (70-110)
[2023-12-31] MEDS: SODIUM CHLORIDE 0.9% 500 ML 500 ML IV ONE (03:59)
[2023-12-31 07:40] LABS: Glucose,Whole Blood 210 mg/dL (70-110)
[2023-12-31] MEDS: ATORVASTATIN 40 MG TAB PO SCH (08:02)
[2023-12-31] MEDS: lisinopriL 10 MG TAB PO SCH (08:03)
[2023-12-31] MEDS: INSULIN DETEMIR (LEVEMIR) 100 UNIT/ML SYR SQ PRN (08:21)
[2023-12-31 09:35] LABS: ALT 56 U/L (10-49); AST 29 U/L (14-35); Albumin 2.4 g/dL (3.8-4.9); Albumin/Globulin Ratio 1.71 Ratio (1.60-3.17); Alkaline Phosphatase 98 U/L (41-126); BUN/Creat Ratio 14.19 Ratio (12.00-20.00); Blood Urea Nitrogen 22.7 mg/dL (9.0-27.0); Calcium 5.8 mg/dL (8.7-10.3); Carbon Dioxide 15.2 mmol/L (21.6-31.8); Chloride 113 mmol/L (96-109); Globulin 1.4 g/dL (1.6-3.3); Glucose 166 mg/dL (70-110); Potassium 3.9 mmol/L (3.5-5.5); Sodium 138 mmol/L (135-145); Total Bilirubin 0.8 mg/dL (0.3-1.2); Total Protein 3.8 g/dL (6.2-8.2)
[2023-12-31] MEDS: methIMAzole 5 MG TAB PO SCH (09:59)
[2023-12-31 10:24] LABS: Basophils # (A) 0.02 X 10*3/uL (0.00-0.10); Basophils % (A) 0.2 %; Eosinophils # (A) 0.05 X 10*3/uL (0.04-0.35); Eosinophils % (A) 0.5 %; HCT 27.2 % (39.6-50.0); HGB 8.7 g/dL (13.0-17.0); Lymphocytes # (A) 2.83 X 10*3/uL (0.90-5.00); MCH 34.3 pg (27.0-32.0); MCV 107.1 FL (80.0-97.0); Mean Platelet Volume 11.9 FL (9.5-12.2); Monocytes # (A) 0.96 X 10*3/uL (0.20-1.00); Monocytes % (A) 9.5 %; NRBC Per 100 WBC 0.02 X 10*3/uL (0.00-0.01); Neutrophils % (A) 61.4 %; Platelet Count 285 X 10*3/uL (140-440); RBC 2.54 X 10*6/uL (4.40-5.60); RDW 13.4 % (11.5-14.5)
[2023-12-31] MEDS: CALCIUM GLUCONATE IN NACL 1 GM in SALINE 1 100ML.BAG IVPB ONE (12:00)
[2023-12-31] MEDS: CHOLECALCIFEROL 125 MCG (5000 IU) TABLET PO SCH (12:01)
[2023-12-31 12:07] LABS: Glucose,Whole Blood 241 mg/dL (70-110)
[2023-12-31] MEDS: CALCIUM CARB-VIT D 500 MG-5 MCG TAB PO SCH (13:45)
--- NOTE | 2023-12-31 14:04 | P.GSCN ---
History of Present Illness Consult date: 12/31/23 History of present illness: CHIEF COMPLAINT: Weakness and hyperglycemia HISTORY OF PRESENT ILLNESS: This is a 73-year-old male who presented to the hospital with complaints of lightheadedness and weakness. He had recent cholecystectomy completed at [facility] last Sunday and also required an ERCP during that admission. Patient denies any abdominal pain. Denies any nausea or vomiting. He reports he is having bowel movements. His SUZETTE drain output has been serosanguineous. Patient reports he has been having blood sugars in the 500s at home and came into the ER for just feeling weak and uncontrolled blood sugars. PAST MEDICAL HISTORY: Diabetes mellitus, hypertension, glaucoma, pancreatitis, hypothyroidism PAST SURGICAL HISTORY: Cholecystectomy MEDICATIONS: See below ALLERGIES: See below SOCIAL HISTORY: No illicit drug use. REVIEW OF SYSTEMS: CONSTITUTIONAL: Denies fever or chills. HEENT: Denies blurred vision, vision changes, or eye pain. Denies hemoptysis CARDIOVASCULAR: Denies chest pain or pressure. RESPIRATORY: No shortness of breath. GASTROINTESTINAL: See HPI for pertinent findings HEMATOLOGIC: Denies bleeding disorders. GENITOURINARY: Denies any blood in urine or increased urinary frequency. SKIN: Denies pruitis. Denies rash. PHYSICAL EXAM: VITAL SIGNS: Reviewed GENERAL: Well-developed in no acute distress. HEENT: No sclera icterus. Extraocular movements grossly intact. Moist buccal mucosa. Head is atraumatic, normocephalic. No nasal drainage. ABDOMEN: Soft. Nondistended. Nontender. Incision sites clean dry and intact. SUZETTE drain site on the right the dressing is saturated with serous fluid. SUZETTE drain serosanguineous 50 mL output. NEUROLOGIC: Alert and oriented. Cranial nerves II through XII grossly intact. LABORATORY DATA: WBC 10.10 Hgb 8.7 platelets 285 Sodium is 138 potassium 3.9 creatinine 1.6 Lactic acid 2.3 down to 1.2 Calcium 5.8 Total bili 1.5 down to 0.8 AST 29 ALT 81 down to 56 ALT 98. Total bilirubin had been 11 on 12/19 when he required transfer to [facility] Acetone negative influenza RSV and COVID-19 not detected IMAGING: CT scan abdomen and pelvis status post recent cholecystectomy no free intraperitoneal fluid or abscess. No bowel obstruction. There is small amount of free intraperitoneal air beneath the diaphragm and there is a small amount of air in the subcutaneous soft tissue of the right upper anterior abdominal wall near the insertion of the drainage catheter ASSESSMENT: 1. Diabetes mellitus with uncontrolled blood sugars 2. Recent ERCP and cholecystectomy on December 26, 2023 at [facility] PLAN: -Continue supportive care -Continue to monitor SUZETTE drain output -Change dressing around SUZETTE drain site -continue blood sugar control per medicine service -No surgical intervention planned Physician Devulcanizer Tender note has been reviewed by physician. Signing provider agrees with the documented findings, assessment, and plan of care. Past Medical History Past Medical History: Diabetes Mellitus, Eye Disorder, Hypertension, Thyroid Disorder Additional Past Medical History / Comment(s): GLAUCOMA. PANCREATITIS History of Any Multi-Drug Resistant Organisms: None Reported Additional Past Surgical History / Comment(s): BILATERAL CATARACTS/WITH LENS. COLONOSCOPIES. Additional Past Anesthesia/Blood Transfusion Reaction / Comm: GENERAL ANESTHESIA. Past Psychological History: No Psychological Hx Reported Smoking Status: Former smoker Past Alcohol Use History: Rare Past Drug Use History: None Reported Medications and Allergies Home Medications Medication Instructions Recorded Confirmed Type Atorvastatin [Lipitor] 40 mg PO DAILY 05/09/22 12/30/23 History Insulin Glargine,Hum.rec.anlog 10 unit SQ DAILY PRN 05/09/22 12/30/23 History [Lantus Solostar Pen] Latanoprost Ophth [Xalatan 0.005%] 1 drop LEFT EYE HS 05/09/22 12/30/23 History Brimonidine Tartrate [Alphagan P 1 drops BOTH EYES TID 12/20/23 12/30/23 History 0.2% Ophth Soln] lisinopriL [Zestril] 10 mg PO DAILY 12/20/23 12/30/23 History methIMAzole [Tapazole] 5 mg PO DAILY 12/20/23 12/30/23 History Amoxic-Pot Clav 875-125Mg 1 tab PO BID 12/30/23 12/30/23 History [Augmentin 875-125] Allergies Allergy/AdvReac Type Severity Reaction Status Date / Time No Known Allergies Allergy Verified 12/30/23 13:08 Surgical - Exam Vital Signs Temp Pulse Resp BP Pulse Ox 97.6 F 104 H 16 95/57 96 12/30/23 12:41 12/30/23 12:41 12/30/23 12:41 12/30/23 12:41 12/30/23 12:41 Results - Labs 12/31/23 05:29 12/31/23 06:24 Abnormal Lab Results - Last 24 Hours (Table) 12/30/23 12/30/23 12/30/23 Range/Units 12:59 12:59 13:16 WBC (4.50-10.00) X 10*3/uL RBC 2.92 L (4.30-5.90) m/uL Hgb 9.6 L D (13.0-17.5) gm/dL Hct 32.3 L (39.0-53.0) % MCV 110.8 H D (80.0-100.0) fL MCH (27.0-32.0) pg MCHC 29.8 L (31.0-37.0) g/dL NRBC/100 WBC Diff (0.00-0.01) X 10*3/uL Macrocytosis Marked A Sodium 130 L (137-145) mmol/L Chloride (96-109) mmol/L Carbon Dioxide 14 L (22-30) mmol/L BUN 29 H (9-20) mg/dL Creatinine 2.00 H (0.66-1.25) mg/dL Est GFR (CKD-EPI) (>=60) Glucose 457 H (74-99) mg/dL POC Glucose (mg/dL) (70-110) mg/dL Hemoglobin A1c (<=6.0) % Plasma Lactic Acid Eliseo (0.7-2.0) mmol/L Calcium 7.6 L (8.4-10.2) mg/dL Total Bilirubin 1.5 H (0.2-1.3) mg/dL ALT 81 H (4-49) U/L Alkaline Phosphatase 148 H (38-126) U/L Total Protein 5.8 L (6.3-8.2) g/dL Albumin 3.1 L (3.5-5.0) g/dL Globulin (1.6-3.3) g/dL Urine Glucose (UA) 4+ H (Negative) Urine Blood Small H (Negative) Urine RBC 16 H (0-5) /hpf Urine Bacteria Rare H (None) /hpf Urine Mucus Rare H (None) /hpf 12/30/23 12/30/23 12/30/23 Range/Units 15:02 15:48 17:34 WBC (4.50-10.00) X 10*3/uL RBC (4.30-5.90) m/uL Hgb (13.0-17.5) gm/dL Hct (39.0-53.0) % MCV (80.0-100.0) fL MCH (27.0-32.0) pg MCHC (31.0-37.0) g/dL NRBC/100 WBC Diff (0.00-0.01) X 10*3/uL Macrocytosis Sodium (137-145) mmol/L Chloride (96-109) mmol/L Carbon Dioxide (22-30) mmol/L BUN (9-20) mg/dL Creatinine (0.66-1.25) mg/dL Est GFR (CKD-EPI) (>=60) Glucose (74-99) mg/dL POC Glucose (mg/dL) 425 H 274 H (70-110) mg/dL Hemoglobin A1c (<=6.0) % Plasma Lactic Acid Eliseo 2.3 H* (0.7-2.0) mmol/L Calcium (8.4-10.2) mg/dL Total Bilirubin (0.2-1.3) mg/dL ALT (4-49) U/L Alkaline Phosphatase (38-126) U/L Total Protein (6.3-8.2) g/dL Albumin (3.5-5.0) g/dL Globulin (1.6-3.3) g/dL Urine Glucose (UA) (Negative) Urine Blood (Negative) Urine RBC (0-5) /hpf Urine Bacteria (None) /hpf Urine Mucus (None) /hpf 12/30/23 12/31/23 12/31/23 Range/Units 21:55 01:15 05:29 WBC (4.50-10.00) X 10*3/uL RBC (4.30-5.90) m/uL Hgb (13.0-17.5) gm/dL Hct (39.0-53.0) % MCV (80.0-100.0) fL MCH (27.0-32.0) pg MCHC (31.0-37.0) g/dL NRBC/100 WBC Diff (0.00-0.01) X 10*3/uL Macrocytosis Sodium (137-145) mmol/L Chloride (96-109) mmol/L Carbon Dioxide (22-30) mmol/L BUN (9-20) mg/dL Creatinine (0.66-1.25) mg/dL Est GFR (CKD-EPI) (>=60) Glucose (74-99) mg/dL POC Glucose (mg/dL) 221 H 190 H (70-110) mg/dL Hemoglobin A1c 8.3 H (<=6.0) % Plasma Lactic Acid Eliseo (0.7-2.0) mmol/L Calcium (8.4-10.2) mg/dL Total Bilirubin (0.2-1.3) mg/dL ALT (4-49) U/L Alkaline Phosphatase (38-126) U/L Total Protein (6.3-8.2) g/dL Albumin (3.5-5.0) g/dL Globulin (1.6-3.3) g/dL Urine Glucose (UA) (Negative) Urine Blood (Negative) Urine RBC (0-5) /hpf Urine Bacteria (None) /hpf Urine Mucus (None) /hpf 12/31/23 12/31/23 12/31/23 Range/Units 05:29 06:24 07:38 WBC 10.10 H (4.50-10.00) X 10*3/uL RBC 2.54 L (4.30-5.90) m/uL Hgb 8.7 L (13.0-17.5) gm/dL Hct 27.2 L (39.0-53.0) % MCV 107.1 H (80.0-100.0) fL MCH 34.3 H (27.0-32.0) pg MCHC (31.0-37.0) g/dL NRBC/100 WBC Diff 0.02 H (0.00-0.01) X 10*3/uL Macrocytosis Sodium (137-145) mmol/L Chloride 113 H (96-109) mmol/L Carbon Dioxide 15.2 L (22-30) mmol/L BUN (9-20) mg/dL Creatinine 1.6 H (0.66-1.25) mg/dL Est GFR (CKD-EPI) 45 L (>=60) Glucose 166 H (74-99) mg/dL POC Glucose (mg/dL) 210 H (70-110) mg/dL Hemoglobin A1c (<=6.0) % Plasma Lactic Acid Eliseo (0.7-2.0) mmol/L Calcium 5.8 A* (8.4-10.2) mg/dL Total Bilirubin (0.2-1.3) mg/dL ALT 56 H (4-49) U/L Alkaline Phosphatase (38-126) U/L Total Protein 3.8 L (6.3-8.2) g/dL Albumin 2.4 L (3.5-5.0) g/dL Globulin 1.4 L (1.6-3.3) g/dL Urine Glucose (UA) (Negative) Urine Blood (Negative) Urine RBC (0-5) /hpf Urine Bacteria (None) /hpf Urine Mucus (None) /hpf 12/31/23 Range/Units 12:06 WBC (4.50-10.00) X 10*3/uL RBC (4.30-5.90) m/uL Hgb (13.0-17.5) gm/dL Hct (39.0-53.0) % MCV (80.0-100.0) fL MCH (27.0-32.0) pg MCHC (31.0-37.0) g/dL NRBC/100 WBC Diff (0.00-0.01) X 10*3/uL Macrocytosis Sodium (137-145) mmol/L Chloride (96-109) mmol/L Carbon Dioxide (22-30) mmol/L BUN (9-20) mg/dL Creatinine (0.66-1.25) mg/dL Est GFR (CKD-EPI) (>=60) Glucose (74-99) mg/dL POC Glucose (mg/dL) 241 H (70-110) mg/dL Hemoglobin A1c (<=6.0) % Plasma Lactic Acid Eliseo (0.7-2.0) mmol/L Calcium (8.4-10.2) mg/dL Total Bilirubin (0.2-1.3) mg/dL ALT (4-49) U/L Alkaline Phosphatase (38-126) U/L Total Protein (6.3-8.2) g/dL Albumin (3.5-5.0) g/dL Globulin (1.6-3.3) g/dL Urine Glucose (UA) (Negative) Urine Blood (Negative) Urine RBC (0-5) /hpf Urine Bacteria (None) /hpf Urine Mucus (None) /hpf Diabetes panel 12/30/23 12/31/23 12/31/23 Range/Units 12:59 05:29 06:24 Sodium 130 L 138 (137-145) mmol/L Potassium 3.9 3.9 (3.5-5.1) mmol/L Chloride 101 113 H (98-107) mmol/L Carbon Dioxide 14 L 15.2 L (22-30) mmol/L BUN 29 H 22.7 (9-20) mg/dL Creatinine 2.00 H 1.6 H (0.66-1.25) mg/dL Glucose 457 H 166 H (74-99) mg/dL Hemoglobin A1c 8.3 H (<=6.0) % Calcium 7.6 L 5.8 A* (8.4-10.2) mg/dL AST 39 29 (17-59) U/L ALT 81 H 56 H (4-49) U/L Alkaline Phosphatase 148 H 98 (38-126) U/L Total Protein 5.8 L 3.8 L (6.3-8.2) g/dL Albumin 3.1 L 2.4 L (3.5-5.0) g/dL Calcium panel 12/30/23 12/31/23 Range/Units 12:59 06:24 Calcium 7.6 L 5.8 A* (8.4-10.2) mg/dL Albumin 3.1 L 2.4 L (3.5-5.0) g/dL Pituitary panel 12/30/23 12/31/23 Range/Units 12:59 06:24 Sodium 130 L 138 (137-145) mmol/L Potassium 3.9 3.9 (3.5-5.1) mmol/L Chloride 101 113 H (98-107) mmol/L Carbon Dioxide 14 L 15.2 L (22-30) mmol/L BUN 29 H 22.7 (9-20) mg/dL Creatinine 2.00 H 1.6 H (0.66-1.25) mg/dL Glucose 457 H 166 H (74-99) mg/dL Calcium 7.6 L 5.8 A* (8.4-10.2) mg/dL Adrenal panel 12/30/23 12/31/23 Range/Units 12:59 06:24 Sodium 130 L 138 (137-145) mmol/L Potassium 3.9 3.9 (3.5-5.1) mmol/L Chloride 101 113 H (98-107) mmol/L Carbon Dioxide 14 L 15.2 L (22-30) mmol/L BUN 29 H 22.7 (9-20) mg/dL Creatinine 2.00 H 1.6 H (0.66-1.25) mg/dL Glucose 457 H 166 H (74-99) mg/dL Calcium 7.6 L 5.8 A* (8.4-10.2) mg/dL Total Bilirubin 1.5 H 0.8 (0.2-1.3) mg/dL AST 39 29 (17-59) U/L ALT 81 H 56 H (4-49) U/L Alkaline Phosphatase 148 H 98 (38-126) U/L Total Protein 5.8 L 3.8 L (6.3-8.2) g/dL Albumin 3.1 L 2.4 L (3.5-5.0) g/dL
[2023-12-31 17:18] LABS: Glucose,Whole Blood 157 mg/dL (70-110)
[2023-12-31] MEDS: PANTOPRAZOLE 40 MG/10 ML VIAL IVP SCH (20:21)
--- NOTE | 2024-01-01 02:44 | PN ---
PROGRESS NOTE DATE OF SERVICE: 12/31/2023 SUBJECTIVE: This is a 73-year-old gentleman who recently had a surgery from elsewhere, was presented with extremely high blood sugars as well as dehydration, weakness. The patient's ketones were negative. With insulin, the patient's blood sugar is slightly better at 210. The patient complains of extreme weakness. Calcium is also extremely low at 5.8 at this time. PAST MEDICAL HISTORY: Reviewed. REVIEW OF SYSTEMS: A 14-point review is negative except as mentioned earlier. CURRENT MEDICATIONS: Calcium gluconate, rest of medications noted. PHYSICAL EXAMINATION: VITAL SIGNS: Pulse is 113, blood pressure 111/61, and respirations 18. HEENT: Conjunctivae normal. NECK: No jugular venous distention. CARDIOVASCULAR: S1, S2. RESPIRATIONS: Few scattered rhonchi. ABDOMEN: Soft status post surgery. SUZETTE drain present. LEGS: No edema, no swelling. NERVOUS SYSTEM: Nonfocal. LABORATORY DATA: WBC 10.10, otherwise creatinine is 1.6. ASSESSMENT: 1. Diabetes mellitus type 2, uncontrolled with no evidence of ketosis. 2. Dehydration, acute renal failure, present on admission. 3. Generalized weakness and gait dysfunction. 4. Recent laparoscopic cholecystectomy as well as SUZETTE drain and ERCP possibly. 5. Hyponatremia. 6. Diabetes mellitus, type 2. 7. Elevated bilirubin and LFTs, improving. 8. Hypertension. 9. History of pancreatitis. 10.Multiple complex medical issues. 11.Full code. RECOMMENDATIONS AND DISCUSSION: This 73-year-old gentleman presented with multiple complex medical issues, we will monitor the patient closely, continue with IV fluids, PT OT evaluation. Increase ambulation. White count is slightly elevated, I would also recommend procalcitonin, otherwise closely follow with surgery. Repeat labs. LFTs are showing some improvement. Calcium supplementation. Guarded prognosis because of multiple complex medical issues. Further recommendations to follow. See orders for details. MMODL / IJN: [id number] /
[2024-01-01 07:04] LABS: Glucose,Whole Blood 166 mg/dL (70-110)
[2024-01-01 09:15] LABS: Sodium 133 mmol/L (137-145)
[2024-01-01 09:16] LABS: ALT 58 U/L (4-49); AST 26 U/L (17-59); African American GFR (CKD) 50 (>60 ml/min/1.73 sqM); Albumin 2.5 g/dL (3.5-5.0); Alkaline Phosphatase 130 U/L (38-126); Anion Gap 3 mmol/L; Blood Urea Nitrogen 24 mg/dL (9-20); Calcium 8.1 mg/dL (8.4-10.2); Carbon Dioxide 24 mmol/L (22-30); Chloride 106 mmol/L (98-107); Globulin 2.6 g/dL; Glucose 147 mg/dL (74-99); Non-African American GFR(CKD) 43 (>60 ml/min/1.73 sqM); Potassium 4.3 mmol/L (3.5-5.1); Total Bilirubin 1.1 mg/dL (0.2-1.3); Total Protein 5.1 g/dL (6.3-8.2)
[2024-01-01 09:38] LABS: HCT 32.2 % (39.0-53.0); HGB 9.5 gm/dL (13.0-17.5); Hypochromasia Marked; MCH 32.8 pg (25.0-35.0); MCHC 29.6 g/dL (31.0-37.0); MCV 110.7 fL (80.0-100.0); Macrocytosis Marked; Mean Platelet Volume 9.3; Platelet Count 268 k/uL (150-450); RBC 2.91 m/uL (4.30-5.90); RDW 13.7 % (11.5-15.5); WBC 7.5 k/uL (3.8-10.6)
[2024-01-01 11:34] LABS: Neutrophils % (M) 68 %; Nucleated Red Blood Cells 0 /100 WBC (0-0); Total Cells Counted 100
[2024-01-01 12:05] LABS: Glucose,Whole Blood 216 mg/dL (70-110)
--- NOTE | 2024-01-01 16:15 | P.PN ---
Subjective Progress Note Date: 01/01/24 CHIEF COMPLAINT: Weakness and hyperglycemia HISTORY OF PRESENT ILLNESS: Surgical service following patient having a recent cholecystectomy at [facility]. SUZETTE drain output 100 mL serosanguineous. Patient denies any abdominal pain. Tolerating diet. Afebrile. WBC 7.5 Hgb 9.5 glucose 216 total bili 1.1 AST 26 ALT 58 alk phos 130 PHYSICAL EXAM: VITAL SIGNS: Reviewed. GENERAL: Well-developed in no acute distress. ABDOMEN: Soft. Nondistended. Incision sites clean dry and intact. NEUROLOGIC: Alert and oriented. Cranial nerves II through XII grossly intact. ASSESSMENT: 1. Diabetes mellitus with uncontrolled blood sugars 2. Recent ERCP and cholecystectomy on December 26, 2023 at [facility] PLAN: -Continue to monitor SUZETTE drain output -SUZETTE drain to be discontinued by his surgeon from [facility] -No surgical intervention planned on -Continue supportive care Physician Matlab Developer note has been reviewed by physician. Signing provider agrees with the documented findings, assessment, and plan of care. Objective - Vital Signs Vital signs: Vital Signs Temp 98 F 01/01/24 11:25 Pulse 98 01/01/24 11:25 Resp 16 01/01/24 11:25 BP 114/74 01/01/24 11:25 Pulse Ox 98 01/01/24 11:25 FiO2 Intake & Output 12/31/23 01/01/24 01/01/24 18:59 06:59 18:59 Intake Total 480 Output Total 370 650 800 Balance -370 -170 -800 Weight 83.007 kg Intake: Oral 480 Output: Drainage 150 50 100 Right Lower Abdomen 150 50 100 Urine 220 600 700 Other: Voiding Method Indwelling Catheter Indwelling Catheter - Labs CBC & Chem 7: 01/01/24 08:11 01/01/24 08:11 Labs: Abnormal Lab Results - Last 24 Hours (Table) 12/31/23 12/31/23 01/01/24 Range/Units 06:34 17:17 07:03 RBC (4.30-5.90) m/uL Hgb (13.0-17.5) gm/dL Hct (39.0-53.0) % MCV (80.0-100.0) fL MCHC (31.0-37.0) g/dL Macrocytosis Sodium (137-145) mmol/L BUN (9-20) mg/dL Creatinine (0.66-1.25) mg/dL Glucose (74-99) mg/dL POC Glucose (mg/dL) 157 H 166 H (70-110) mg/dL Calcium (8.4-10.2) mg/dL ALT (4-49) U/L Alkaline Phosphatase (38-126) U/L Total Protein (6.3-8.2) g/dL Albumin (3.5-5.0) g/dL Procalcitonin 1.00 H (0.02-0.09) ng/mL 01/01/24 01/01/24 01/01/24 Range/Units 08:11 08:11 12:03 RBC 2.91 L (4.30-5.90) m/uL Hgb 9.5 L (13.0-17.5) gm/dL Hct 32.2 L (39.0-53.0) % MCV 110.7 H (80.0-100.0) fL MCHC 29.6 L (31.0-37.0) g/dL Macrocytosis Marked A Sodium 133 L (137-145) mmol/L BUN 24 H (9-20) mg/dL Creatinine 1.57 H (0.66-1.25) mg/dL Glucose 147 H (74-99) mg/dL POC Glucose (mg/dL) 216 H (70-110) mg/dL Calcium 8.1 L (8.4-10.2) mg/dL ALT 58 H (4-49) U/L Alkaline Phosphatase 130 H (38-126) U/L Total Protein 5.1 L (6.3-8.2) g/dL Albumin 2.5 L (3.5-5.0) g/dL Procalcitonin (0.02-0.09) ng/mL
[2024-01-01 17:02] LABS: Glucose,Whole Blood 289 mg/dL (70-110)
[2024-01-01 20:16] LABS: Glucose,Whole Blood 136 mg/dL (70-110)
--- NOTE | 2024-01-02 01:27 | PN ---
PROGRESS NOTE DATE OF SERVICE: 01/01/2024 SUBJECTIVE: This is a 73-year-old gentleman who was admitted with recent cholecystectomy, is complaining of significant weakness. No chest pain, no palpitations, no fever. OBJECTIVE: VITAL SIGNS: Pulse is 98, blood pressure 140/74, and respirations 16. CHEST: Clear to auscultation. CARDIOVASCULAR: S1, S2. ABDOMEN: Soft, status post surgery. NERVOUS SYSTEM: Nonfocal. LABORATORY DATA: Creatinine 1.57. Rest of the labs are noted. ASSESSMENT: 1. Diabetes mellitus, type 2, uncontrolled with no evidence of ketosis. 2. Dehydration with acute renal failure present on admission. 3. Generalized weakness and gait dysfunction. 4. Recent laparoscopic cholecystectomy as well as SUZETTE drain and ERCP possibly. 5. Hyponatremia. 6. Diabetes mellitus, type 2. 7. Multiple complex medical issues. RECOMMENDATIONS: Recommended to continue current management, continue symptomatic treatment. Monitor blood sugars closely. Monitor creatinine closely. Repeat labs. PT/OT evaluation, possible ECF rehab. Closely follow with surgery. Prognosis guarded. Further recommendations to follow. MMODL / IJN: [id number] /
[2024-01-02 07:47] LABS: Glucose,Whole Blood 170 mg/dL (70-110)
[2024-01-02 10:26] LABS: Basophils # (A) 0.03 X 10*3/uL (0.00-0.10); Basophils % (A) 0.4 %; Eosinophils # (A) 0.06 X 10*3/uL (0.04-0.35); Eosinophils % (A) 0.8 %; HCT 30.1 % (39.6-50.0); HGB 9.2 g/dL (13.0-17.0); Lymphocytes # (A) 2.37 X 10*3/uL (0.90-5.00); Lymphocytes % (A) 30.9 %; MCH 32.9 pg (27.0-32.0); MCHC 30.6 g/dL (32.0-37.0); MCV 107.5 FL (80.0-97.0); Mean Platelet Volume 11.5 FL (9.5-12.2); Monocytes # (A) 0.63 X 10*3/uL (0.20-1.00); Monocytes % (A) 8.2 %; NRBC Per 100 WBC 0.03 X 10*3/uL (0.00-0.01); Neutrophils # (A) 4.55 X 10*3/uL (1.80-7.70); Neutrophils % (A) 59.2 %; Platelet Count 270 X 10*3/uL (140-440); RDW 13.4 % (11.5-14.5); WBC 7.68 X 10*3/uL (4.50-10.00)
[2024-01-02 11:14] LABS: ALT 49 U/L (10-49); AST 20 U/L (14-35); Albumin 2.9 g/dL (3.8-4.9); Albumin/Globulin Ratio 1.61 Ratio (1.60-3.17); Alkaline Phosphatase 118 U/L (41-126); Calcium 8.1 mg/dL (8.7-10.3); Carbon Dioxide 21.5 mmol/L (21.6-31.8); Chloride 105 mmol/L (96-109); Globulin 1.8 g/dL (1.6-3.3); Glucose 163 mg/dL (70-110); Potassium 4.5 mmol/L (3.5-5.5); Sodium 137 mmol/L (135-145); Total Bilirubin 0.9 mg/dL (0.3-1.2); Total Protein 4.7 g/dL (6.2-8.2)
[2024-01-02 12:19] LABS: Glucose,Whole Blood 373 mg/dL (70-110)
--- NOTE | 2024-01-02 13:31 | P.PN ---
Subjective Progress Note Date: 01/02/24 CHIEF COMPLAINT: Weakness and hyperglycemia HISTORY OF PRESENT ILLNESS: Surgical service following patient having a recent cholecystectomy at [facility]. SUZETTE drain output 40 mL bile tinged fluid. Patient denies any abdominal pain. Tolerating diet. Afebrile. WBC 7.68 HGB 9.2 plt 270 Na 137 k 4.5 cr 1.4 BS 373 PHYSICAL EXAM: VITAL SIGNS: Reviewed. GENERAL: Well-developed in no acute distress. ABDOMEN: Soft. Nondistended. Incision sites clean dry and intact. SUZETTE drain fluid bile tinged. patient has leaking around peg tube site that is serous in color. NEUROLOGIC: Alert and oriented. Cranial nerves II through XII grossly intact. ASSESSMENT: 1. Diabetes mellitus with uncontrolled blood sugars 2. Recent ERCP and cholecystectomy on December 26, 2023 at [facility] PLAN: -Continue to monitor SUZETTE drain output -Patient to follow-up with his surgeon out of [facility] after discharge -No surgical intervention planned on -Continue supportive care Physician Acting Section Chief note has been reviewed by physician. Signing provider agrees with the documented findings, assessment, and plan of care. Objective - Vital Signs Vital signs: Vital Signs Temp 97.9 F 01/02/24 12:11 Pulse 94 01/02/24 12:11 Resp 16 01/02/24 12:11 BP 114/73 01/02/24 12:11 Pulse Ox 98 01/02/24 12:11 FiO2 Intake & Output 01/01/24 01/02/24 01/02/24 18:59 06:59 18:59 Intake Total 900 Output Total 1300 640 900 Balance -1300 260 -900 Intake: Intake, IV Titration 900 Amount Sodium Chloride 0.9% 1, 900 000 ml @ 75 mls/hr IV . [id number] [facility] Rx#:[id number] Output: Drainage 100 40 Right Lower Abdomen 100 40 Urine 1200 600 900 Other: Voiding Method Indwelling Catheter Indwelling Catheter Indwelling Catheter - Labs CBC & Chem 7: 01/02/24 06:56 01/02/24 06:56 Labs: Abnormal Lab Results - Last 24 Hours (Table) 01/01/24 01/01/24 01/02/24 Range/Units 17:01 20:14 06:56 RBC 2.80 L (4.40-5.60) X 10*6/uL Hgb 9.2 L (13.0-17.0) g/dL Hct 30.1 L (39.6-50.0) % MCV 107.5 H (80.0-97.0) FL MCH 32.9 H (27.0-32.0) pg MCHC 30.6 L (32.0-37.0) g/dL NRBC/100 WBC Diff 0.03 H (0.00-0.01) X 10*3/uL Carbon Dioxide (21.6-31.8) mmol/L Est GFR (CKD-EPI) (>=60) BUN/Creatinine Ratio (12.00-20.00) Ratio Glucose (70-110) mg/dL POC Glucose (mg/dL) 289 H 136 H (70-110) mg/dL Calcium (8.7-10.3) mg/dL Total Protein (6.2-8.2) g/dL Albumin (3.8-4.9) g/dL 01/02/24 01/02/24 01/02/24 Range/Units 06:56 07:34 12:14 RBC (4.40-5.60) X 10*6/uL Hgb (13.0-17.0) g/dL Hct (39.6-50.0) % MCV (80.0-97.0) FL MCH (27.0-32.0) pg MCHC (32.0-37.0) g/dL NRBC/100 WBC Diff (0.00-0.01) X 10*3/uL Carbon Dioxide 21.5 L (21.6-31.8) mmol/L Est GFR (CKD-EPI) 53 L (>=60) BUN/Creatinine Ratio 10.00 L (12.00-20.00) Ratio Glucose 163 H (70-110) mg/dL POC Glucose (mg/dL) 170 H 373 H (70-110) mg/dL Calcium 8.1 L (8.7-10.3) mg/dL Total Protein 4.7 L (6.2-8.2) g/dL Albumin 2.9 L (3.8-4.9) g/dL
[2024-01-02 17:20] LABS: Glucose,Whole Blood 200 mg/dL (70-110)
[2024-01-02 20:13] LABS: Glucose,Whole Blood 234 mg/dL (70-110)
[2024-01-03 02:44] VITALS: RESP 16
--- NOTE | 2024-01-03 05:02 | P.PN ---
Subjective Progress Note Date: 01/02/24 This is a 73-year-old male who was recently admitted with abdominal pain and generalized weakness. Patient was recently at [facility] underwent acute cholecystectomy and continues with a SUZETTE drain. General surgery following recommending outpatient follow-up with surgeon at [place]. Continue monitoring drainage output as it is noted to be bilious in nature. Patient with generalized weakness evaluated by physical therapy recommending rehab and patient is agreeable. Patient reports was independent prior to this previous surgery. Patient reports to tolerating diet with no reported nausea or vom iting. Denies any chest pain or palpitations at this time and patient remains afebrile. Review of systems: Constitutional: No reports of fatigue, fever, or chills Cardiovascular: No reports of chest pain or palpitations Respiratory: No reports of shortness of breath or cough GI: No reports of nausea, no reports of vomiting, reports having bowel movements and tolerating diet : No reports of dysuria or retention Neurovascular: reports of generalized weakness and continued gait dysfunction All medications have been reviewed PHYSICAL EXAMINATION: GENERAL: The patient is alert and oriented x4, Well developed, well nourished. Elderly appearing HEENT: Pupils are round and equally reacting to light. EOMI. no scleral icterus. No conjunctival pallor. Normocephalic, atraumatic. No pharyngeal erythema. No thyromegaly. CARDIOVASCULAR: S1 and S2 muffled PULMONARY: diminished breath sounds bilaterally with no wheezing or rhonchi noted. ABDOMEN: soft. Nontender on exam. obese. non-distended, normoactive bowel sounds. No palpable organomegaly. MUSCULOSKELETAL: No joint swelling or deformity. EXTREMITIES: No cyanosis, clubbing, or pedal edema. NEUROLOGICAL: Gross neurological examination did not reveal any focal deficits. Diffuse weakness SKIN: No rashes. Assessment: Diabetes mellitus, type II, uncontrolled with hyper and hypoglycemia Acute renal failure, present on admission secondary to dehydration Generalized weakness and gait dysfunction Recent laparoscopic cholecystectomy as well as SUZETTE drain and ERCP at [facility] Hyponatremia Hypertension History of bilateral cataracts GI prophylaxis DVT prophylaxis Full code Plan: Recommend to continue with current medications and management with general surgery following. No plans for surgical intervention or removing the SUZETTE drain at this time. Continue monitoring the output and recommends follow-up with [facility] surgeon in the outpatient setting PT/OT therapy evaluated the patient recommending rehab and patient is agreeable. Patient has had steady decline since the surgery and is generally weak. P atient was independent prior to this Encouraged increased activity as tolerated Patient will require insurance authorization which is currently pending Possible discharge planning in the next 24 to 48 hours The impression and plan of care has been dictated by nurse Yamilka pra ctitioner as directed. Dr. Ap MD I have performed a history and examination and MDM of this patient, discussed the same with the dictator, and agree with the dictator's assessment and plan as written ,documented as a scribe. Based on total visit time, I have performed more than 50% of the visit. Any additional findings or plans will be noted. Objective - Vital Signs Vital signs: Vital Signs Temp 97.9 F 01/02/24 12:11 Pulse 94 01/02/24 12:11 Resp 16 01/02/24 12:11 BP 114/73 01/02/24 12:11 Pulse Ox 98 01/02/24 12:11 FiO2 Intake & Output 01/01/24 01/02/24 01/02/24 18:59 06:59 18:59 Intake Total 900 Output Total 1300 640 900 Balance -1300 260 -900 Intake: Intake, IV Titration 900 Amount Sodium Chloride 0.9% 1, 900 000 ml @ 75 mls/hr IV . [id number] [facility] Rx#:[id number] Output: Drainage 100 40 Right Lower Abdomen 100 40 Urine 1200 600 900 Other: Voiding Method Indwelling Catheter Indwelling Catheter Indwelling Catheter - Labs CBC & Chem 7: 01/02/24 06:56 01/02/24 06:56 Labs: Abnormal Lab Results - Last 24 Hours (Table) 01/01/24 01/01/24 01/02/24 Range/Units 17:01 20:14 06:56 RBC 2.80 L (4.40-5.60) X 10*6/uL Hgb 9.2 L (13.0-17.0) g/dL Hct 30.1 L (39.6-50.0) % MCV 107.5 H (80.0-97.0) FL MCH 32.9 H (27.0-32.0) pg MCHC 30.6 L (32.0-37.0) g/dL NRBC/100 WBC Diff 0.03 H (0.00-0.01) X 10*3/uL Carbon Dioxide (21.6-31.8) mmol/L Est GFR (CKD-EPI) (>=60) BUN/Creatinine Ratio (12.00-20.00) Ratio Glucose (70-110) mg/dL POC Glucose (mg/dL) 289 H 136 H (70-110) mg/dL Calcium (8.7-10.3) mg/dL Total Protein (6.2-8.2) g/dL Albumin (3.8-4.9) g/dL 01/02/24 01/02/24 01/02/24 Range/Units 06:56 07:34 12:14 RBC (4.40-5.60) X 10*6/uL Hgb (13.0-17.0) g/dL Hct (39.6-50.0) % MCV (80.0-97.0) FL MCH (27.0-32.0) pg MCHC (32.0-37.0) g/dL NRBC/100 WBC Diff (0.00-0.01) X 10*3/uL Carbon Dioxide 21.5 L (21.6-31.8) mmol/L Est GFR (CKD-EPI) 53 L (>=60) BUN/Creatinine Ratio 10.00 L (12.00-20.00) Ratio Glucose 163 H (70-110) mg/dL POC Glucose (mg/dL) 170 H 373 H (70-110) mg/dL Calcium 8.1 L (8.7-10.3) mg/dL Total Protein 4.7 L (6.2-8.2) g/dL Albumin 2.9 L (3.8-4.9) g/dL
[2024-01-03 08:08] LABS: Glucose,Whole Blood 185 mg/dL (70-110)
[2024-01-03 11:59] LABS: Glucose,Whole Blood 197 mg/dL (70-110)
[2024-01-03 12:20] LABS: ALT 43 U/L (4-49); AST 27 U/L (17-59); African American GFR (CKD) 71 (>60 ml/min/1.73 sqM); Albumin 2.7 g/dL (3.5-5.0); Albumin/Globulin Ratio 1.1; Alkaline Phosphatase 119 U/L (38-126); Anion Gap 2 mmol/L; Blood Urea Nitrogen 13 mg/dL (9-20); Calcium 8.2 mg/dL (8.4-10.2); Carbon Dioxide 24 mmol/L (22-30); Chloride 108 mmol/L (98-107); Globulin 2.5 g/dL; Glucose 177 mg/dL (74-99); Non-African American GFR(CKD) 61 (>60 ml/min/1.73 sqM); Potassium 4.1 mmol/L (3.5-5.1); Sodium 134 mmol/L (137-145); Total Protein 5.2 g/dL (6.3-8.2)
[2024-01-03 13:09] VITALS: BP 120/74; PULSE 95; TEMP 97.7
--- NOTE | 2024-01-03 14:26 | P.PN ---
Subjective Progress Note Date: 01/03/24 CHIEF COMPLAINT: Weakness and hyperglycemia HISTORY OF PRESENT ILLNESS: Surgical service is following because patient had recent cholecystectomy at [facility]. SUZETTE drain output 70 mL bile tinged fluid through the night. Patient denies any abdominal pain. Tolerating diet. He reports feeling better. PHYSICAL EXAM: VITAL SIGNS: Reviewed. GENERAL: Well-developed in no acute distress. ABDOMEN: Soft. Nondistended. Incision sites clean dry and intact. SUZETTE drain fluid bile tinged. patient has leaking around peg tube site that is serous in color. NEUROLOGIC: Alert and oriented. Cranial nerves II through XII grossly intact. ASSESSMENT: 1. Bile leak 2. Recent ERCP and cholecystectomy on December 26, 2023 at [facility] 3. Diabetes mellitus with uncontrolled blood sugars PLAN: -Continue to monitor SUZETTE drain output -Patient to follow-up with his surgeon out of [facility] after discharge -No surgical intervention planned on -Continue supportive care Physician Medical Sales note has been reviewed by physician. Signing provider agrees with the documented findings, assessment, and plan of care. Objective - Vital Signs Vital signs: Vital Signs Temp 98.4 F 01/03/24 07:42 Pulse 92 01/03/24 07:42 Resp 16 01/03/24 07:42 BP 117/78 01/03/24 07:42 Pulse Ox 93 L 01/03/24 07:42 FiO2 Intake & Output 01/02/24 01/03/24 01/03/24 18:59 06:59 18:59 Intake Total 1105 Output Total 0818 361 9058 Balance -1160 310 -1000 Intake: Intake, IV Titration 865 Amount Sodium Chloride 0.9% 1, 865 000 ml @ 20 mls/hr IV . Q24H [facility] Rx#:[id number] Oral 240 Output: Drainage 60 70 Right Lower Abdomen 60 70 Urine 5621 800 8621 Other: Voiding Method Indwelling Catheter Indwelling Catheter - Labs CBC & Chem 7: 01/02/24 06:56 01/03/24 11:40 Labs: Abnormal Lab Results - Last 24 Hours (Table) 01/02/24 01/02/24 01/02/24 Range/Units 12:14 17:18 20:11 POC Glucose (mg/dL) 373 H 200 H 234 H (70-110) mg/dL 05/16/24 05/16/24 Range/Units 07:45 11:39 POC Glucose (mg/dL) 185 H 197 H (70-110) mg/dL
--- NOTE | 2024-01-03 15:20 | P.DS ---
Providers Date of admission: 12/30/23 15:29 Expected date of discharge: 01/03/24 Attending physician: Joaquim De Souza Consults: 12/30/23 15:27 Consult Physician Routine Consulting Provider: Kulwinder Cabrera Consult Reason/Comments: post op cholecystectomy at [facility]. yayo drain Do you want consulting provider notified?: Already Contacted Primary care physician: Teofilo Alcantara Hospital Course: Final diagnosis Diabetes mellitus, type II, uncontrolled with hyper and hypoglycemia Acute renal failure, present on admission secondary to dehydration Generalized weakness and gait dysfunction Recent laparoscopic cholecystectomy as well as YAYO drain and ERCP at [facility] Retention requiring indwelling Blancas catheter Hyponatremia Hypertension History of bilateral cataracts GI prophylaxis DVT prophylaxis Full code Discharge disposition Patient is being discharged in a stable condition with guarded prognosis to [facility]. Patient will follow-up with Dr. Alcantara in the outpatient setting upon discharge. Patient to follow-up with Dr. Ogden at [facility]. Patient is to continue with oral Augmentin and close outpatient follow-up with his surgeon out of [facility] as scheduled. Total time taken is greater than 35 minutes. Hospital course This is a 73-year-old male who was recently admitted with generalized weakness. Patient reports he was at [facility] and underwent recent laparoscopic cholecystectomy with ERCP for choledocholithiasis and was sent to [facility] for continued strength and mobility. Patient returned home although having generalized weakness and difficulty in ambulation and uncontrolled blood sugars came to the hospital for further evaluation. Patient evaluated by general surgery recommending outpatient follow-up with his surgeon out of [facility] for YAYO drain removal. Continue monitoring the YAYO drain output as there continues to be output noted. Patient also noted to have a indwelling Blnacas catheter due to retention and recommend to continue and will add Flomax and continue with possible void trial in the outpatient setting once patient is more mobile. Patient has been cleared by consultations for discharge. Patient accepted at [facility] and insurance authorization obtained. Currently no reports of chest pain, shortness of breath, or palpitations. Patient is afebrile. No reports of nausea or vomiting and patient is tolerating diet. Patient will be going to [facility] today. Guarded prognosis. Physical exam: Gen: This is a 73-year-old male who is awake, alert and oriented x 3, well- developed, well-nourished, elderly HEENT: Head is atraumatic, normocephalic. Pupils equal, round. Sclerae is anicteric. NECK: Supple. No JVD. No lymphadenopathy. No thyromegaly. LUNGS: Diminished breath sounds bilaterally otherwise clear to auscultation. No wheezes or rhonchi. No intercostal retractions. HEART: S1, S2 are muffled ABDOMEN: Soft. Bowel sounds are present. No masses. No tenderness. EXTREMITIES: No pedal edema. No calf tenderness. Right lower extremity swelling, chronic NEUROLOGICAL: Patient is awake, alert and oriented x3. Cranial nerves 2 through 12 are grossly intact. Diffusely weak Please refer to medication reconciliation sheet for a list of medications. The impression and plan of care has been dictated by Thao Hall, Nurse Practitioner as directed. Dr. Elder MD I have performed a history and examination and MDM of this patient, discussed the same with the dictator, and agree with the dictator's assessment and plan as written ,documented as a scribe. Based on total visit time, I have performed more than 50% of the visit. Patient Condition at Discharge: Stable Plan - Discharge Summary Discharge Rx Participant: No New Discharge Prescriptions: New Heparin Sodium,Porcine (1 ml) [Heparin Sodium] 5,000 unit SQ Q12HR each Calcium Carb-Vit D 500Mg-5Mcg [Oscal 500+D 5 Mcg (200 Iu)] 1 each PO TID- W/MEALS tab Acetaminophen Tab [Tylenol] 650 mg PO Q6HR PRN tab PRN Reason: Mild Pain Or Fever > 100.5 Tamsulosin HCl [Flomax] 0.4 mg PO DAILY #30 capsule INSULIN ASPART (NovoLOG) [NovoLOG (formulary)] 0 unit SQ AC-TID each Continue Latanoprost Ophth [Xalatan 0.005%] 1 drop LEFT EYE HS Atorvastatin [Lipitor] 40 mg PO DAILY Insulin Glargine,Hum.rec.anlog [Lantus Solostar Pen] 10 unit SQ DAILY PRN PRN Reason: BLOOD SUGAR > 200 methIMAzole [Tapazole] 5 mg PO DAILY Brimonidine Tartrate [Alphagan P 0.2% Ophth Soln] 1 drops BOTH EYES TID Amoxic-Pot Clav 875-125Mg [Augmentin 875-125] 1 tab PO BID Discontinued lisinopriL [Zestril] 10 mg PO DAILY Discharge Medication List Atorvastatin [Lipitor] 40 mg PO DAILY 05/09/22 [History] Insulin Glargine,Hum.rec.anlog [Lantus Solostar Pen] 10 unit SQ DAILY PRN 05/09/22 [History] Latanoprost Ophth [Xalatan 0.005%] 1 drop LEFT EYE HS 05/09/22 [History] Brimonidine Tartrate [Alphagan P 0.2% Ophth Soln] 1 drops BOTH EYES TID 12/20/23 [History] methIMAzole [Tapazole] 5 mg PO DAILY 12/20/23 [History] Amoxic-Pot Clav 875-125Mg [Augmentin 875-125] 1 tab PO BID 12/30/23 [History] Acetaminophen Tab [Tylenol] 650 mg PO Q6HR PRN tab 01/03/24 [Rx] Calcium Carb-Vit D 500Mg-5Mcg [Oscal 500+D 5 Mcg (200 Iu)] 1 each PO TID-W/MEALS tab 01/03/24 [Rx] Heparin Sodium,Porcine (1 ml) [Heparin Sodium] 5,000 unit SQ Q12HR each 01/03/24 [Rx] INSULIN ASPART (NovoLOG) [NovoLOG (formulary)] 0 unit SQ AC-TID each 01/03/24 [Rx] Tamsulosin HCl [Flomax] 0.4 mg PO DAILY #30 capsule 01/03/24 [Rx] Follow up Appointment(s)/Referral(s): Teofilo Alcantara MD [Primary Care Provider] - 1 Week Activity/Diet/Wound Care/Special Instructions: Patient is going to [facility] Activity as tolerated Follow-up with primary care provider on discharge Follow-up with general surgeon and Josh Carrasco Continue with YAYO drain and monitoring with surgeon out of [place] Continue with indwelling Blancas catheter until more mobile and trial void Patient to continue on Augmentin per surgeon until follow-up Continue monitoring Accu-Cheks before meals and at bedtime Discharge Disposition: TRANSFER TO SNF/ECF
== END 2024-01-03 18:30 | DRG 638 ==
LOC: EC 12:38 → 5NMEDONC 15:29 → 6NMEDSUR 19:30 → 5NMEDONC 21:40
PROVIDERS: ADMIT Hospitalist; ATTEND Hospitalist
DX: E11.65 Type 2 diabetes mellitus with hyperglycemia (principal); E87.1 Hypo-osmolality and hyponatremia; N17.9 Acute kidney failure, unspecified; E11.649 Type 2 diabetes mellitus with hypoglycemia without coma; I10 Essential (primary) hypertension; E03.9 Hypothyroidism, unspecified; D64.9 Anemia, unspecified; Z79.4 Long term (current) use of insulin; E86.0 Dehydration; R26.9 Unspecified abnormalities of gait and mobility; H40.9 Unspecified glaucoma; Z87.891 Personal history of nicotine dependence; Z79.899 Other long term (current) drug therapy
CPT/HCPCS: 36415; 71046; 74177; 80053; 81001; 82009; 82803; 83036; 83605; 83735; 84145; 84443; 84481; 85025; 85610; 85730; 86850; 86900; 86901; 87636; 93005; 96361; 96372; 96374; 96375; 96376; 99285

== ENCOUNTER 2024-01-03 21:40 | Inpatient (IN) | payer MEDICARE ==
[2024-01-03 23:21] LABS: ALT 43 U/L (4-49); AST 28 U/L (17-59); African American GFR (CKD) 62 (>60 ml/min/1.73 sqM); Albumin 2.8 g/dL (3.5-5.0); Alkaline Phosphatase 120 U/L (38-126); Anion Gap 5 mmol/L; Blood Urea Nitrogen 14 mg/dL (9-20); Calcium 8.5 mg/dL (8.4-10.2); Carbon Dioxide 25 mmol/L (22-30); Chloride 106 mmol/L (98-107); Glucose 285 mg/dL (74-99); Non-African American GFR(CKD) 54 (>60 ml/min/1.73 sqM); Potassium 4.5 mmol/L (3.5-5.1); Sodium 136 mmol/L (137-145); Total Bilirubin 1.1 mg/dL (0.2-1.3); Total Protein 5.5 g/dL (6.3-8.2)
[2024-01-03 23:23] LABS: Basophils % (A) 0 %; Eosinophils # (A) 0.2 k/uL (0-0.7); Eosinophils % (A) 2 %; HCT 33.7 % (39.0-53.0); HGB 10.3 gm/dL (13.0-17.5); Hypochromasia Moderate; Lymphocytes # (A) 1.9 k/uL (1.0-4.8); Lymphocytes % (A) 23 %; MCH 33.1 pg (25.0-35.0); MCHC 30.5 g/dL (31.0-37.0); MCV 108.3 fL (80.0-100.0); Macrocytosis Moderate; Monocytes # (A) 0.3 k/uL (0-1.0); Monocytes % (A) 4 %; Neutrophils # (A) 5.6 k/uL (1.3-7.7); Neutrophils % (A) 70 %; Platelet Count 264 k/uL (150-450); RBC 3.11 m/uL (4.30-5.90); RDW 14.1 % (11.5-15.5); WBC 8.1 k/uL (3.8-10.6)
[2024-01-03 23:30] LABS: NT-Pro-B-Type Natriuretic Pept 1380 pg/mL
[2024-01-03 23:42] LABS: Appearance,Urine Clear (Clear); Bilirubin,Urine Negative (Negative); Blood,Urine Trace (Negative); Color,Urine Colorless; Glucose,Urine (UA) 4+ (Negative); Ketones,Urine Negative (Negative); Leukocyte Esterase,Urine Negative (Negative); Mucus,Urine Rare /hpf; Nitrite,Urine Negative (Negative); PH, Urine 5.5 (5.0-8.0); Protein,Urine Negative (Negative); RBC,Urine 1 /hpf (0-5); Urobilinogen,Urine <2.0 mg/dL (<2.0); WBC,Urine 1 /hpf (0-5)
--- NOTE | 2024-01-04 00:44 | ED ---
General Adult HPI - General Chief complaint: Recheck/Abnormal Lab/Rx Stated complaint: Hypotension Time Seen by Provider: 01/03/24 21:50 Source: EMS Mode of arrival: EMS - History of Present Illness Initial comments: 73-year-old male who presents to the emergency department from [facility]. Patient was just discharged from our facility a few hours ago. He had been hospitalized after a cholecystectomy with drain placement at [facility]. His hospitalization was for hyperglycemia and weakness. At [facility] he was found to be hypotensive, hypoxic at 86% and tachycardic. They immediately transferred him back to the hospital. Patient has no complaints at this time. When atte mpting to take the patient off of oxygen he does dip down to 88%. He denies fever chills or cough. No chest pain. No other alleviating, precipitating modifying factors - Related Data Home Medications Medication Instructions Recorded Confirmed Atorvastatin [Lipitor] 40 mg PO DAILY 05/09/22 01/04/24 Insulin Glargine,Hum.rec.anlog 10 unit SQ DAILY PRN 05/09/22 01/04/24 [Lantus Solostar Pen] Latanoprost Ophth [Xalatan 0.005%] 1 drop LEFT EYE HS 05/09/22 01/04/24 Brimonidine Tartrate [Alphagan P 1 drops BOTH EYES TID 12/20/23 01/04/24 0.2% Ophth Soln] methIMAzole [Tapazole] 5 mg PO DAILY 12/20/23 01/04/24 Calcium Carb-Vit D 500Mg-5Mcg 1 tab PO TID-W/MEALS 01/04/24 01/04/24 [Oscal 500+D 5 Mcg (200 Iu)] INSULIN ASPART (NovoLOG) [NovoLOG See Protocol SQ AC-TID 01/04/24 01/04/24 (formulary)] Previous Rx's Medication Instructions Recorded Acetaminophen Tab [Tylenol] 650 mg PO Q6HR PRN tab 01/03/24 Heparin Sodium,Porcine (1 ml) 5,000 unit SQ Q12HR each 01/03/24 [Heparin Sodium] Apixaban Initiation Dose--VTE See Taper PO BID 30 Days #74 tab 01/07/24 [Eliquis Initiation Dosing for VTE Treatment] Tamsulosin HCl [Flomax] 0.4 mg PO DAILY 30 Days #30 capsule 01/07/24 guaiFENesin SYRUP 100MG/5ML 200 mg PO Q6HR PRN #120 ml 01/07/24 [Robitussin] Allergies Allergy/AdvReac Type Severity Reaction Status Date / Time No Known Allergies Allergy Verified 01/04/24 07:34 Review of Systems ROS Statement: Those systems with pertinent positive or pertinent negative responses have been documented in the HPI. ROS Other: All systems not noted in ROS Statement are negative. Past Medical History Past Medical History: Diabetes Mellitus, Eye Disorder, Hypertension, Thyroid Disorder Additional Past Medical History / Comment(s): GLAUCOMA. PANCREATITIS History of Any Multi-Drug Resistant Organisms: None Reported Additional Past Surgical History / Comment(s): BILATERAL CATARACTS/WITH LENS. COLONOSCOPIES. [place] Past Anesthesia/Blood Transfusion Reactions: No Reported Reaction Additional Past Anesthesia/Blood Transfusion Reaction / Comment(s): GENERAL ANESTHESIA. Past Psychological History: No Psychological Hx Reported Smoking Status: Former smoker Past Alcohol Use History: Rare Past Drug Use History: None Reported General Exam General appearance: alert, in no apparent distress Head exam: Present: atraumatic, normocephalic, normal inspection Eye exam: Present: normal appearance, PERRL, EOMI. Absent: scleral icterus, conjunctival injection, periorbital swelling ENT exam: Present: normal exam, mucous membranes moist Neck exam: Present: normal inspection. Absent: tenderness, meningismus, lymphadenopathy Respiratory exam: Present: normal lung sounds bilaterally. Absent: respiratory distress, wheezes, rales, rhonchi, stridor Cardiovascular Exam: Present: normal rhythm, tachycardia, normal heart sounds. Absent: systolic murmur, diastolic murmur, rubs, gallop, clicks GI/Abdominal exam: Present: soft, normal bowel sounds. Absent: distended, tenderness, guarding, rebound, rigid Extremities exam: Present: normal inspection, full ROM, normal capillary refill. Absent: tenderness, pedal edema, joint swelling, calf tenderness Back exam: Present: normal inspection Neurological exam: Present: alert, oriented X3, CN II-XII intact Psychiatric exam: Present: normal affect, normal mood Skin exam: Present: warm, dry, intact, normal color. Absent: rash Course Vital Signs 01/03/24 01/03/24 01/04/24 21:44 23:18 01:37 Temperature 97.7 F Pulse Rate 112 H 109 H 104 H Respiratory 20 20 22 Rate Blood Pressure 96/70 112/70 115/73 O2 Sat by Pulse 93 L 98 97 Oximetry 01/04/24 01/04/24 01/04/24 03:31 04:45 07:41 Temperature Pulse Rate 101 H 97 Respiratory 20 18 Rate Blood Pressure 110/77 122/75 O2 Sat by Pulse 97 95 97 Oximetry 01/04/24 01/04/24 09:00 10:00 Temperature Pulse Rate 90 95 Respiratory 16 16 Rate Blood Pressure 124/77 129/80 O2 Sat by Pulse 98 99 Oximetry - Reevaluation(s) Reevaluation #1: CT has not been read by the radiologist at this time. CT is interpreted by myself and concerning for bilateral PEs. I will heparinize the patient based off of my interpretation and admit 01/04/24 04:20 Medical Decision Making - Medical Decision Making Was pt. sent in by a medical professional or institution (, PA, CARE SERVICES MANAGER, urgent care, hospital, or halfway...) When possible be specific @ -Patient was sent from his ECF Did you speak to anyone other than the patient for history (EMS, parent, family, police, friend...)? What history was obtained from this source @ -I spoke with EMS Did you review nursing and triage notes (agree or disagree)? Why? @ -I reviewed and agree with nursing and triage notes Were old charts reviewed (outside hosp., previous admission, EMS record, old EKG, old radiological studies, urgent care reports/EKG's, halfway records)? Report findings @ -I reviewed the patient's discharge summary from earlier today Differential Diagnosis (chest pain, altered mental status, abdominal pain women, abdominal pain men, vaginal bleeding, weakness, fever, dyspnea, syncope, hea dache, dizziness, GI bleed, back pain, seizure, CVA, palpatations, mental health, musculoskeletal)? @ -Differential Dyspnea: Coronary syndrome, arrhythmia, tamponade, asthma, COPD, pulmonary embolism, pneumonia, pneumothorax, pulmonary effusion, anaphylaxis, diabetic ketoacidosis, flailed chest, pulmonary contusion, diaphragmatic rupture, anemia, neuromuscular, this is not meant to be an all-inclusive list. EKG interpreted by me (3pts min.). @ -Yes and demonstrates sinus tachycardia with a rate of 112. NC interval 192. QRS 99. QTc of 364. Inverted T waves with ST depression in V2. No acute ST segment elevation. Q wave in lead III X-rays interpreted by me (1pt min.). @ -None done CT interpreted by me (1pt min.). @ -Yes and demonstrates multiple PEs U/S interpreted by me (1pt. min.). @ -None done What testing was considered but not performed or refused? (CT, X-rays, U/S, labs)? Why? @ -None What meds were considered but not given or refused? Why? @ -None Did you discuss the management of the patient with other professionals (professionals i.e. DrZoie, PA, CARE SERVICES MANAGER, lab, RT, psych nurse, social media developer, freelance displayer, teacher, field artillery officer, case advocate)? Give summary @ -Spoke with Teofilo from [facility]. Also spoke with Dr. Blancas as she is on for vascular Was smoking cessation discussed for >3mins.? @ -No Was critical care preformed (if so, how long)? @ -Yes, 39 minutes Were there social determinants of health that impacted care today? How? (Homelessness, low income, unemployed, alcoholism, drug addiction, transportation, low edu. Level, literacy, decrease access to med. care, senior care, rehab)? @ -No Was there de-escalation of care discussed even if they declined (Discuss DNR or withdrawal of care, Hospice)? DNR status @ -No What co-morbidities impacted this encounter? (DM, HTN, Smoking, COPD, CAD, Cancer, CVA, ARF, Chemo, Hep., AIDS, mental health diagnosis, sleep apnea, mor bid obesity)? @ -Gallbladder dysfunction Was patient admitted / discharged? Hospital course, mention meds given and route, prescriptions, significant lab abnormalities, going to OR and other pertinent info. @ -Upon arrival patient seen and evaluated in room 10. Thorough history and physical exam was performed. I did review his discharge summary. IV was established laboratory studies are conducted. Patient does go for CT which demonstrates multiple PEs. He is started on heparin as there are no contraindications. Patient will be admitted to [facility]. Spoke with Teofilo who will admit the patient. Also spoke with Dr. Blancas who is on for vascular Undiagnosed new problem with uncertain prognosis? @ -No Drug Therapy requiring intensive monitoring for toxicity (Heparin, Nitro, Insulin, Cardizem)? @ -Heparin Were any procedures done? @ -No Diagnosis/symptom? @ -Acute hypoxia, acute hypotension, multiple bilateral PEs Acute, or Chronic, or Acute on Chronic? @ -Acute Uncomplicated (without systemic symptoms) or Complicated (systemic symptoms)? @Complicated Side effects of treatment? @ -No Exacerbation, Progression, or Severe Exacerbation? @ -No Poses a threat to life or bodily function? How? (Chest pain, [place], [place], pneumonia, PE, COPD, DKA, ARF, appy, cholecystitis, CVA, Diverticulitis, Homicidal, Suicidal, threat to staff... and all critical care pts) @ -No - Lab Data Result diagrams: 01/05/24 07:42 01/07/24 10:44 Lab Results 01/03/24 01/03/24 01/03/24 Range/Units 22:58 22:58 22:58 WBC 8.1 (3.8-10.6) k/uL RBC 3.11 L (4.30-5.90) m/uL Hgb 10.3 L (13.0-17.5) gm/dL Hct 33.7 L (39.0-53.0) % MCV 108.3 H (80.0-100.0) fL MCH 33.1 (25.0-35.0) pg MCHC 30.5 L (31.0-37.0) g/dL RDW 14.1 (11.5-15.5) % Plt Count 264 (150-450) k/uL MPV 9.0 Neutrophils % 70 % Lymphocytes % 23 % Monocytes % 4 % Eosinophils % 2 % Basophils % 0 % Neutrophils # 5.6 (1.3-7.7) k/uL Lymphocytes # 1.9 (1.0-4.8) k/uL Monocytes # 0.3 (0-1.0) k/uL Eosinophils # 0.2 (0-0.7) k/uL Basophils # 0.0 (0-0.2) k/uL Hypochromasia Moderate Macrocytosis Moderate D-Dimer (<0.60) mg/L FEU Sodium 136 L (137-145) mmol/L Potassium 4.5 (3.5-5.1) mmol/L Chloride 106 (98-107) mmol/L Carbon Dioxide 25 (22-30) mmol/L Anion Gap 5 mmol/L BUN 14 (9-20) mg/dL Creatinine 1.30 H (0.66-1.25) mg/dL Est GFR (CKD-EPI)AfAm 62 (>60 ml/min/1.73 sqM) Est GFR (CKD-EPI)NonAf 54 (>60 ml/min/1.73 sqM) Glucose 285 H (74-99) mg/dL Plasma Lactic Acid Eliseo 1.5 (0.7-2.0) mmol/L Calcium 8.5 (8.4-10.2) mg/dL Total Bilirubin 1.1 (0.2-1.3) mg/dL AST 28 (17-59) U/L ALT 43 (4-49) U/L Alkaline Phosphatase 120 (38-126) U/L Troponin I (0.000-0.034) ng/mL NT-Pro-B Natriuret Pep 1380 pg/mL Total Protein 5.5 L (6.3-8.2) g/dL Albumin 2.8 L (3.5-5.0) g/dL Urine Color Urine Appearance (Clear) Urine pH (5.0-8.0) Ur Specific Scott (1.001-1.035) Urine Protein (Negative) Urine Glucose (UA) (Negative) Urine Ketones (Negative) Urine Blood (Negative) Urine Nitrite (Negative) Urine Bilirubin (Negative) Urine Urobilinogen (<2.0) mg/dL Ur Leukocyte Esterase (Negative) Urine RBC (0-5) /hpf Urine WBC (0-5) /hpf Urine Mucus (None) /hpf 01/03/24 01/03/24 01/03/24 Range/Units 22:58 22:58 23:14 WBC (3.8-10.6) k/uL RBC (4.30-5.90) m/uL Hgb (13.0-17.5) gm/dL Hct (39.0-53.0) % MCV (80.0-100.0) fL MCH (25.0-35.0) pg MCHC (31.0-37.0) g/dL RDW (11.5-15.5) % Plt Count (150-450) k/uL MPV Neutrophils % % Lymphocytes % % Monocytes % % Eosinophils % % Basophils % % Neutrophils # (1.3-7.7) k/uL Lymphocytes # (1.0-4.8) k/uL Monocytes # (0-1.0) k/uL Eosinophils # (0-0.7) k/uL Basophils # (0-0.2) k/uL Hypochromasia Macrocytosis D-Dimer 16.67 H (<0.60) mg/L FEU Sodium (137-145) mmol/L Potassium (3.5-5.1) mmol/L Chloride (98-107) mmol/L Carbon Dioxide (22-30) mmol/L Anion Gap mmol/L BUN (9-20) mg/dL Creatinine (0.66-1.25) mg/dL Est GFR (CKD-EPI)AfAm (>60 ml/min/1.73 sqM) Est GFR (CKD-EPI)NonAf (>60 ml/min/1.73 sqM) Glucose (74-99) mg/dL Plasma Lactic Acid Eliseo (0.7-2.0) mmol/L Calcium (8.4-10.2) mg/dL Total Bilirubin (0.2-1.3) mg/dL AST (17-59) U/L ALT (4-49) U/L Alkaline Phosphatase (38-126) U/L Troponin I 0.018 (0.000-0.034) ng/mL NT-Pro-B Natriuret Pep pg/mL Total Protein (6.3-8.2) g/dL Albumin (3.5-5.0) g/dL Urine Color Colorless Urine Appearance Clear (Clear) Urine pH 5.5 (5.0-8.0) Ur Specific Scott 1.020 (1.001-1.035) Urine Protein Negative (Negative) Urine Glucose (UA) 4+ H (Negative) Urine Ketones Negative (Negative) Urine Blood Trace H (Negative) Urine Nitrite Negative (Negative) Urine Bilirubin Negative (Negative) Urine Urobilinogen <2.0 (<2.0) mg/dL Ur Leukocyte Esterase Negative (Negative) Urine RBC 1 (0-5) /hpf Urine WBC 1 (0-5) /hpf Urine Mucus Rare H (None) /hpf Disposition Clinical Impression: Hypoxia, Tachycardia, Bilateral pulmonary embolism Disposition: ADMITTED IP TO THIS HOSP Condition: Serious Is patient prescribed a controlled substance at d/c from ED?: No Time of Disposition: 04:22 Decision to Admit Reason: Admit from EC Decision Date: 01/04/24 Decision Time: 04:22
[2024-01-04] MEDS: SODIUM CHLORIDE 0.9% 500 ML 500 ML IV ONE (01:35)
[2024-01-04] MEDS ORDERED: HEPARIN SODIUM 1,000 UN/ML (10ML VL) IV PRN (04:11)
[2024-01-04] MEDS ORDERED: NALOXONE 0.4 MG/ML 1 ML VIAL IV PRN (04:22)
--- NOTE | 2024-01-04 04:32 | CT ---
EXAM: CT Angiography Chest With Intravenous Contrast CLINICAL HISTORY: ITS.REASON CT Reason: hypoxia, tachycardia, hypotension TECHNIQUE: Axial computed tomographic angiography images of the chest with intravenous contrast. CTDI is 60.38 mGy and DLP is 720.4 mGy-cm. This CT exam was performed using one or more of the following dose reduction techniques: automated exposure control, adjustment of the mA and/or kV according to patient size, and/or use of iterative reconstruction technique. Additional abdominal imaging was obtained. MIP reconstructed images were created and reviewed. COMPARISON: No relevant prior studies available. FINDINGS: Pulmonary arteries: Nonocclusive and occlusive pulmonary emboli affecting all lobes with involvement of the right main pulmonary arteries. No evidence of saddle embolus. Aorta: Atherosclerotic disease. No thoracic aortic aneurysm. Superior mesenteric artery: Patent SMA. Renal arteries: Patent bilateral renal arteries. Lungs: Dependent scarring and atelectatic changes at the lung bases. No mass. Pleural space: Unremarkable. No significant effusion. No pneumothorax. Heart: RV-LV ratio is 1.7. Findings can be seen with right heart strain. Coronary artery calcifications. No cardiomegaly. No significant pericardial effusion. Mediastinum: Gas and mediastinal lymph nodes. Bones/joints: Mild narrowing of the celiac axis due to atherosclerotic calcifications. Degenerative changes in the spine. No acute fracture. No dislocation. Soft tissues: Soft tissue gas noted along the right upper quadrant. Lymph nodes: Unremarkable. Gallbladder and bile ducts: Gas and fluid collection noted in the right upper quadrant which may relate to cholecystectomy changes. This is better seen on CT abdomen/pelvis 5 224. Pancreas: Normal pancreas. Spleen: Unremarkable spleen. Small splenule. Kidneys and ureters: Normal right kidney. Incomplete visualization of the left kidney. Tubes, lines and devices: Partially visualized drain within the right upper quadrant. IMPRESSION: 1. Nonocclusive and occlusive pulmonary emboli affecting all lobes with involvement of the right main pulmonary arteries. No evidence of saddle embolus. 2. RV-LV ratio is 1.7. Findings can be seen with right heart strain. 3. Recent cholecystectomy changes noted. 4. No other acute findings within the chest or abdomen. 5. Incidental findings as described. <MYCVCSECTION> Communications: 01/04/24 04:41 Call Doctor Regarding Above results, called Dr. Leon on 01/03 04:41 (-04:00)
[2024-01-04] MEDS: HEPARIN SODIUM 1,000 UN/ML (10ML VL) IV ONE (04:40)
[2024-01-04] MEDS: HEPARIN SOD,PORK IN 0.45% NACL 25,000 UNIT in 0.45% NACL 1 250ML.BAG IV SCH (04:41)
--- NOTE | 2024-01-04 08:04 | XR ---
EXAM: XR Chest, 2 Views CLINICAL HISTORY: ITS.REASON XR Reason: Weakness TECHNIQUE: Frontal and lateral views of the chest. COMPARISON: No relevant prior studies available. IMPRESSION: 1. Minimal dependent airspace disease without acute cardiopulmonary abnormality.
--- NOTE | 2024-01-04 08:16 | US ---
EXAMINATION TYPE: US venous doppler duplex LE DATE OF EXAM: 01/04/2024 7:38 AM COMPARISON: NONE CLINICAL INDICATION: Male, 73 years old with history of b/l pulmonary embolism; On IV heparin. GB re moved x 1 week ago. SIDE PERFORMED: Bilateral TECHNIQUE: The lower extremity deep venous system is examined utilizing real time linear array sonog peggy with graded compression, doppler sonography and color-flow sonography. VESSELS IMAGED: Common Femoral Vein Deep Femoral Vein Greater Saphenous Vein * Femoral Vein Popliteal Vein Small Saphenous Vein * Proximal Calf Veins (* superficial vessels) Right Leg: Negative for DVT Left Leg: Negative for DVT IMPRESSION: Grayscale, color doppler, spectral doppler imaging performed of the deep veins of the lo wer extremities. There is normal flow, compressibility, vascular waveforms.
--- NOTE | 2024-01-04 10:10 | CA ---
Transthoracic Echo Report Name: Brett Beavers Age: 73 Gender: M : 1950 Exam Date: 01/04/2024 08:32 Exam Location: [place] [facility] Ht (in): 71 Wt (lb): 183 Ordering Physician: Nafisa Leon DO Attending/Referring Phys: [id number], Edward Cardiac Cath Tech Jazmyn Fitch, HAZEL Procedure CPT: Indications: PE, RV strain Cardiac Hx: Technical Quality: Good Contrast 1: Total Dose (mL): Contrast 2: Total Dose (mL): MEASUREMENTS (Male / Female) Normal Values 2D ECHO LV Diastolic Diameter PLAX 3.4 cm 4.2 - 5.9 / 3.9 - 5.3 cm LV Systolic Diameter PLAX 2.8 cm IVS Diastolic Thickness 0.8 cm 0.6 - 1.0 / 0.6 - 0.9 cm LVPW Diastolic Thickness 1.0 cm 0.6 - 1.0 / 0.6 - 0.9 cm LV Relative Wall Thickness 0.5 RV Internal Dim ED PLAX 3.9 cm LA Systolic Diameter LX 2.7 cm 3.0 - 4.0 / 2.7 - 3.8 cm LA Volume 29.7 cm??? 18 - 58 / 22 - 52 cm??? LA Volume Index 14.5 cm???/m??? 16 - 28 cm???/m??? M-MODE Aortic Root Diameter MM 3.6 cm AV Cusp Separation MM 1.3 cm DOPPLER AV Peak Velocity 156.3 cm/s AV Peak Gradient 9.8 mmHg MV Area PHT 4.6 cm??? Mitral E Point Velocity 72.7 cm/s Mitral A Point Velocity 109.3 cm/s Mitral E to A Ratio 0.7 MV Deceleration Time 165.2 ms TR Peak Velocity 370.9 cm/s TR Peak Gradient 55.0 mmHg Right Ventricular Systolic Press 58.9 mmHg FINDINGS Left Ventricle Left ventricular ejection fraction is estimated at 55-60 %. Small left ventricular cavity. Left ventricular wall thickness normal.Normal left ventricular systolic function with no obvious regional wall motion abnormalities. Right Ventricle right ventricular dilatation. Moderate to severe pulmonary hypertension. Right ventricular systolic pressure estimated at 59 mm hg. global hypokinesis, sparing the apex Right Atrium Mild right atrial dilatation. No right atrial thrombus or mass seen. Left Atrium Normal left atrial size. Mitral Valve Structurally normal mitral valve. Mitral annular calcification. No mitral regurgitation. Aortic Valve Trileaflet aortic valve. No aortic valve stenosis or regurgitation.aortic valve sclerosis. Tricuspid Valve Structurally normal tricuspid valve. Severe tricuspid regurgitation. Pulmonic Valve Structurally normal pulmonic valve. Mild pulmonic regurgitation. Pericardium No pericardial or pleural effusion. Aorta Normal size aortic root and proximal ascending aorta. CONCLUSIONS 1. Normal left ventricular size and systolic function 2. Dilated right ventricle with global hypokinesis sparing the apex. 3. Severe tricuspid regurgitation with moderate to severe pulmonary hypertension Previewed by: Dr. Yu Arteaga MD (Electronically Signed) Final Date: 04 Jan 2024 10:09
--- NOTE | 2024-01-04 10:57 | P.GSCN ---
History of Present Illness Consult date: 01/04/24 Reason for Consult: Bilateral PE, heart strain Requesting physician: Nafisa Leon History of present illness: This is a pleasant 73-year-old -[place] male who presented to the emergency department for concerns of hypotension. Past medical history includes diabetes mellitus, hypertension, chronic renal disease, and recent cholecystectomy. Patient was at [facility] and [facility], he was just discharged from this facility few hours prior to going to rehab for complaints of lightheadedness and weakness. He had a recent cholecystectomy and ERCP done at [facility] 12/26/2023. He returned yesterday from the facility for again concerns of hypotension, weakness and some shortness of breath. He had blood work done as part of his workup was noted to have a elevated D-dimer. He had a chest CTA on admission reporting bilateral pulmonary emboli with concern for right heart strain. Vascular surgery was consulted for bilateral pulmonary emboli. Patient currently denies any significant shortness of breath states he just feels weak, blood pressures are stable, troponins were negative, he denies any chest pain, abdominal pain nausea or vomiting. He has a SUZETTE drain in place and Blancas catheter. Review of Systems A 14 point review systems was completed all pertinent positives and negatives as stated in the HPI. Past Medical History Past Medical History: Diabetes Mellitus, Eye Disorder, Hypertension, Thyroid Disorder Additional Past Medical History / Comment(s): GLAUCOMA. PANCREATITIS History of Any Multi-Drug Resistant Organisms: None Reported Additional Past Surgical History / Comment(s): BILATERAL CATARACTS/WITH LENS. [facility] Past Anesthesia/Blood Transfusion Reactions: No Reported Reaction Additional Past Anesthesia/Blood Transfusion Reaction / Comm: GENERAL ANESTHESIA. Past Psychological History: No Psychological Hx Reported Smoking Status: Former smoker Past Alcohol Use History: Rare Past Drug Use History: None Reported Medications and Allergies Home Medications Medication Instructions Recorded Confirmed Type Atorvastatin [Lipitor] 40 mg PO DAILY 05/09/22 01/04/24 History Insulin Glargine,Hum.rec.anlog 10 unit SQ DAILY PRN 05/09/22 01/04/24 History [Lantus Solostar Pen] Latanoprost Ophth [Xalatan 0.005%] 1 drop LEFT EYE HS 05/09/22 01/04/24 History Brimonidine Tartrate [Alphagan P 1 drops BOTH EYES TID 12/20/23 01/04/24 History 0.2% Ophth Soln] methIMAzole [Tapazole] 5 mg PO DAILY 12/20/23 01/04/24 History Acetaminophen Tab [Tylenol] 650 mg PO Q6HR PRN tab 01/03/24 01/04/24 Rx Heparin Sodium,Porcine (1 ml) 5,000 unit SQ Q12HR each 01/03/24 01/04/24 Rx [Heparin Sodium] Tamsulosin HCl [Flomax] 0.4 mg PO DAILY #30 capsule 01/03/24 01/04/24 Rx Calcium Carb-Vit D 500Mg-5Mcg 1 tab PO TID-W/MEALS 01/04/24 01/04/24 History [Oscal 500+D 5 Mcg (200 Iu)] INSULIN ASPART (NovoLOG) [NovoLOG See Protocol SQ AC-TID 01/04/24 01/04/24 History (formulary)] Allergies Allergy/AdvReac Type Severity Reaction Status Date / Time No Known Allergies Allergy Verified 01/04/24 07:34 Surgical - Exam Vital Signs Temp Pulse Resp BP Pulse Ox 97.7 F 112 H 20 96/70 93 L 01/03/24 21:44 01/03/24 21:44 01/03/24 21:44 01/03/24 21:44 01/03/24 21:44 General appearance: The patient is alert, oriented, appears in no acute distress. HET: Head is normocephalic and atraumatic. Pupils are equal and reactive. Neck: Supple. Heart: Regular. Lungs: Equal expansion, normal respiratory effort. Abdomen: Soft, nontender, nondistended. Extremities: Normal skin color and turgor. Right lower extremity swelling. Neurological: No focal deficits. Strength and sensation are grossly intact. Results - Labs 01/03/24 22:58 01/03/24 22:58 Abnormal Lab Results - Last 24 Hours (Table) 01/03/24 01/03/24 01/03/24 Range/Units 22:58 22:58 22:58 RBC 3.11 L (4.30-5.90) m/uL Hgb 10.3 L (13.0-17.5) gm/dL Hct 33.7 L (39.0-53.0) % MCV 108.3 H (80.0-100.0) fL MCHC 30.5 L (31.0-37.0) g/dL D-Dimer 16.67 H (<0.60) mg/L FEU Sodium 136 L (137-145) mmol/L Creatinine 1.30 H (0.66-1.25) mg/dL Glucose 285 H (74-99) mg/dL Total Protein 5.5 L (6.3-8.2) g/dL Albumin 2.8 L (3.5-5.0) g/dL Urine Glucose (UA) (Negative) Urine Blood (Negative) Urine Mucus (None) /hpf 01/03/24 Range/Units 23:14 RBC (4.30-5.90) m/uL Hgb (13.0-17.5) gm/dL Hct (39.0-53.0) % MCV (80.0-100.0) fL MCHC (31.0-37.0) g/dL D-Dimer (<0.60) mg/L FEU Sodium (137-145) mmol/L Creatinine (0.66-1.25) mg/dL Glucose (74-99) mg/dL Total Protein (6.3-8.2) g/dL Albumin (3.5-5.0) g/dL Urine Glucose (UA) 4+ H (Negative) Urine Blood Trace H (Negative) Urine Mucus Rare H (None) /hpf Diabetes panel 01/03/24 Range/Units 22:58 Sodium 136 L (137-145) mmol/L Potassium 4.5 (3.5-5.1) mmol/L Chloride 106 (98-107) mmol/L Carbon Dioxide 25 (22-30) mmol/L BUN 14 (9-20) mg/dL Creatinine 1.30 H (0.66-1.25) mg/dL Glucose 285 H (74-99) mg/dL Calcium 8.5 (8.4-10.2) mg/dL AST 28 (17-59) U/L ALT 43 (4-49) U/L Alkaline Phosphatase 120 (38-126) U/L Total Protein 5.5 L (6.3-8.2) g/dL Albumin 2.8 L (3.5-5.0) g/dL Calcium panel 01/03/24 Range/Units 22:58 Calcium 8.5 (8.4-10.2) mg/dL Albumin 2.8 L (3.5-5.0) g/dL Pituitary panel 01/03/24 Range/Units 22:58 Sodium 136 L (137-145) mmol/L Potassium 4.5 (3.5-5.1) mmol/L Chloride 106 (98-107) mmol/L Carbon Dioxide 25 (22-30) mmol/L BUN 14 (9-20) mg/dL Creatinine 1.30 H (0.66-1.25) mg/dL Glucose 285 H (74-99) mg/dL Calcium 8.5 (8.4-10.2) mg/dL Adrenal panel 01/03/24 Range/Units 22:58 Sodium 136 L (137-145) mmol/L Potassium 4.5 (3.5-5.1) mmol/L Chloride 106 (98-107) mmol/L Carbon Dioxide 25 (22-30) mmol/L BUN 14 (9-20) mg/dL Creatinine 1.30 H (0.66-1.25) mg/dL Glucose 285 H (74-99) mg/dL Calcium 8.5 (8.4-10.2) mg/dL Total Bilirubin 1.1 (0.2-1.3) mg/dL AST 28 (17-59) U/L ALT 43 (4-49) U/L Alkaline Phosphatase 120 (38-126) U/L Total Protein 5.5 L (6.3-8.2) g/dL Albumin 2.8 L (3.5-5.0) g/dL - Imaging Comments: Nonocclusive and occlusive pulmonary emboli affecting all lobes with involvement of the right main pulmonary arteries. No evidence of saddle embolus. RV/LV rat io is 1.7. Findings can be seen with right heart strain. Recent cholecystectomy changes noted. No other acute findings within the chest or abdomen. Incidental findings as described. Chest x-ray reports minimal dependent airspace disease without acute cardiopulmonary abnormality Venous duplex negative bilateral DVT. Echocardiogram reviewed by divemaster and reported that there is positive right heart strain. Report not available at this time. Assessment and Plan Assessment: 1. Bilateral pulmonary emboli with evidence of right heart strain 2. Recent cholecystectomy done on 12/26/2023 3. Diabetes mellitus 4. Chronic kidney disease 5. Hypertension Plan: 1. Keep patient n.p.o. 2. Continue heparin drip as ordered 3. Echocardiogram ordered, pending report 4. Patient will be scheduled for percutaneous thrombectomy with INARI, patient is not a candidate for thrombolytics with EKOS due to recent surgery 5. Continue with recommendations from pulmonology 6. Rest of medical management per primary medical team Thank you for this consultation, we will continue to follow. The impression and plan of care has been dictated as directed. Dr. Haney I performed a history and examination of this patient, discussed the same with the dictator. I agree with the dictator's note ,documented as a scribe. Any ad ditional findings or plans will be noted.
[2024-01-04] MEDS: LIDOCAINE 1% INJ 10MG/ML (20 ML MDV) SQ ONE (11:28)
[2024-01-04] MEDS: fentaNYL (PF) 50 MCG/1 ML VIAL IVP ONE (11:31)
[2024-01-04] MEDS: MIDAZOLAM 2 MG/2 ML VIAL IVP ONE (11:31)
[2024-01-04] MEDS: IOPAMIDOL-370 100ML BTL INTRATHECA ONE (12:18)
[2024-01-04] MEDS: SODIUM CHLORIDE 0.9% 1,000 ML IV ONE (12:18)
--- NOTE | 2024-01-04 12:40 | P.CNPUL ---
History of Present Illness Consult date: 01/04/24 Requesting physician: Joaquim De Souza Reason for consult: abnormal CXR/CT Chief complaint: Shortness of breath, hypoxemia History of present illness: This is a 73-year-old gentleman who was recently here from 12/29 to 01/03/2024 uncontrolled diabetes mellitus having issues with hyper and hypoglycemia. He also had dehydration and acute renal failure. He had recently undergone laparoscopic cholecystectomy with SUZETTE drain and ERCP at [facility]. He did have issues with urinary retention requiring an indwelling Blancas catheter. Upon discharge he was sent to [facility] but was only there a few hours when he had developed low O2 saturations, tachycardia and hypotension. Seen this morning in the emergency department. He is resting on a stretcher. He is awake and alert in no acute distress. He denies any significant chest pain. No hemoptysis. He did have O2 saturations in the 80s in the emergency department he is currently placed on 2 L/min with O2 saturations in the high 90s. He has been afebrile. Hemodynamically stable. White count 8.1. Hemoglobin 10.3. Platelets 264. Sodium 136. Potassium 4.5. Bicarb 25. BUN 14. Creatinine 1.30. Glucose 285. CT angiogram did reveal nonocclusive and occlusive pulmonary emboli affecting all lobes with involvement of the right main pulmonary arteries. No evidence of saddle emboli. RV to LV ratio is 1.7 consistent with right heart strain. Dopplers of the lower extremities were negative for DVT chest x-ray revealed minimal dependent airspace disease without acute pulmonary process. Echocardiogram did reveal preserved left ventricular systolic function. There is noted dilated right ventricle with global hypokinesis. Severe tricuspid regurg and moderate to severe pulmonary hypertension. The plan today is for percutaneous pulmonary thrombectomy with vascular surgery. Review of Systems REVIEW OF SYSTEMS: CONSTITUTIONAL: Denies any recent significant weight loss or weight gain. EYES: Denies change in vision. EARS, NOSE, MOUTH, THROAT: Denies headaches, denies sore throat. CARDIOVASCULAR: Denies chest pain, palpitations or syncopal episodes. RESPIRATORY: Positive for shortness of breath, no cough, congestion or hemoptysis. GASTROINTESTINAL: Denies change in appetite, denies abdominal pain GENITOURINARY: Denies hematuria, denies infections. MUSKULOSKELETAL: Denies pain, denies swelling. INTEGUMENTARY: Denies rash, denies eczema. NEUROLOGICAL: Denies recent memory loss, no recent seizure activity. PSYCHIATRIC: Denies anxiety, denies depression. HEMATOLOGIC/LYMPHATIC: Denies anemia, denies enlarged lymph nodes. Past Medical History Past Medical History: Diabetes Mellitus, Eye Disorder, Hypertension, Thyroid Disorder Additional Past Medical History / Comment(s): GLAUCOMA. PANCREATITIS History of Any Multi-Drug Resistant Organisms: None Reported Additional Past Surgical History / Comment(s): BILATERAL CATARACTS/WITH LENS. COLONOSCOPIES. [facility] Past Anesthesia/Blood Transfusion Reactions: No Reported Reaction Additional Past Anesthesia/Blood Transfusion Reaction / Comment(s): GENERAL ANESTHESIA. Past Psychological History: No Psychological Hx Reported Smoking Status: Former smoker Past Alcohol Use History: Rare Past Drug Use History: None Reported Medications and Allergies Home Medications Medication Instructions Recorded Confirmed Type Atorvastatin [Lipitor] 40 mg PO DAILY 05/09/22 01/04/24 History Insulin Glargine,Hum.rec.anlog 10 unit SQ DAILY PRN 05/09/22 01/04/24 History [Lantus Solostar Pen] Latanoprost Ophth [Xalatan 0.005%] 1 drop LEFT EYE HS 05/09/22 01/04/24 History Brimonidine Tartrate [Alphagan P 1 drops BOTH EYES TID 12/20/23 01/04/24 History 0.2% Ophth Soln] methIMAzole [Tapazole] 5 mg PO DAILY 12/20/23 01/04/24 History Acetaminophen Tab [Tylenol] 650 mg PO Q6HR PRN tab 01/03/24 01/04/24 Rx Heparin Sodium,Porcine (1 ml) 5,000 unit SQ Q12HR each 01/03/24 01/04/24 Rx [Heparin Sodium] Tamsulosin HCl [Flomax] 0.4 mg PO DAILY #30 capsule 01/03/24 01/04/24 Rx Calcium Carb-Vit D 500Mg-5Mcg 1 tab PO TID-W/MEALS 01/04/24 01/04/24 History [Oscal 500+D 5 Mcg (200 Iu)] INSULIN ASPART (NovoLOG) [NovoLOG See Protocol SQ AC-TID 01/04/24 01/04/24 History (formulary)] Allergies Allergy/AdvReac Type Severity Reaction Status Date / Time No Known Allergies Allergy Verified 01/04/24 07:34 Physical Exam Vitals: Vital Signs Temp Pulse Resp BP Pulse Ox 01/04/24 10:00 95 16 129/80 99 01/04/24 09:00 90 16 124/77 98 01/04/24 07:41 97 18 122/75 97 01/04/24 04:45 101 H 20 110/77 95 01/04/24 03:31 97 01/04/24 01:37 104 H 22 115/73 97 01/03/24 23:18 109 H 20 112/70 98 01/03/24 21:44 97.7 F 112 H 20 96/70 93 L Intake and Output 01/03/24 01/04/24 01/04/24 22:59 06:59 14:59 Other: Weight 83.007 kg GENERAL EXAM: Alert, pleasant 73-year-old male, on 2 L nasal cannula, fairly comfortable in no apparent distress. HEAD: Normocephalic. EYES: Normal reaction of pupils, equal size. NOSE: Clear with pink turbinates. THROAT: No erythema or exudates. NECK: No masses, no JVD. CHEST: No chest wall deformity. LUNGS: Equal air entry with no crackles, wheeze, rhonchi or dullness. CVS: S1 and S2 normal with no audible murmur, regular rhythm. ABDOMEN: Surgical sites clean dry and well intact. SUZETTE drain site intact. Normal bowel sounds, no guarding or rigidity. SPINE: No scoliosis or deformity SKIN: No rashes CENTRAL NERVOUS SYSTEM: No focal deficits, tone is normal in all 4 extremities. EXTREMITIES: There is no peripheral edema. No clubbing, no cyanosis. Peripheral pulses are intact. Results - Laboratory Findings CBC and BMP: 01/03/24 22:58 01/03/24 22:58 PT/INR, D-dimer D-Dimer 16.67 mg/L FEU (<0.60) H 01/03/24 22:58 Abnormal lab findings: Abnormal Labs 01/03/24 01/03/24 01/03/24 22:58 22:58 22:58 RBC 3.11 L Hgb 10.3 L Hct 33.7 L MCV 108.3 H MCHC 30.5 L APTT D-Dimer 16.67 H Sodium 136 L Creatinine 1.30 H Glucose 285 H Total Protein 5.5 L Albumin 2.8 L Urine Glucose (UA) Urine Blood Urine Mucus 01/03/24 01/04/24 23:14 10:07 RBC Hgb Hct MCV MCHC APTT >200.0 H* D-Dimer Sodium Creatinine Glucose Total Protein Albumin Urine Glucose (UA) 4+ H Urine Blood Trace H Urine Mucus Rare H - Diagnostic Findings Chest x-ray: image reviewed CT scan - chest: image reviewed Assessment and Plan Assessment: Acute hypoxemic respiratory failure secondary to acute bilateral pulmonary emboli with evidence of right heart strain. Plan is for percutaneous pulmonary thrombectomy with Inari scheduled today Recent admission here for diabetes mellitus with poorly controlled glucose levels developing hyper and hypoglycemia Recent hospitalization at [facility] for cholecystectomy with ERCP and SUZETTE drain placement Urinary retention requiring Blancas catheter placement History of hypertension Plan: The patient was seen and evaluated CT angiogram, Dopplers, labs and medications reviewed Plan is for pulmonary thrombectomy today Currently on a heparin drip Titrate the FiO2 as tolerated We will continue to follow and make further recommendations based on his clinical status I have personally seen and examined the patient, performed the documentation and the assessment and plan as written. Number of minutes spent on the visit: 20.
--- NOTE | 2024-01-04 13:59 | IR ---
EXAMINATION TYPE: IR transcath embolizat therapy Intraoperative/procedural fluoroscopic services were provided. CLINICAL INDICATION:Male, 73 years old with history of bilateral PE, Embolctomy.; , [facility] Total fluoroscopy time is 16.1 min. DAP: [id number] uGym2 Please see the operative/procedural note for further details.
--- NOTE | 2024-01-04 17:10 | P.OP ---
Date of Procedure: 01/04/24 Preoperative Diagnosis: Acute bilateral pulmonary embolism with right heart strain Postoperative Diagnosis: Same Procedure(s) Performed: Ultrasound guided right common femoral vein access Bilateral pulmonary artery angiograms Right main pulmonary artery percutaneous thrombectomy with extirpation of matter Right truncus arteriosis thrombectomy with extirpation of matter Left main pulmonary artery percutaneous thrombectomy with extirpation of matter Conscious sedation x 35 minutes Anesthesia: local Surgeon: Randal Haney Pathology: none sent Condition: stable Indications for Procedure: 73 year old gentleman with history of recent laparoscopic cholecystectomy presented to the ER with shortness of breath and found to have bilateral pulmonary embolism. He had an ECHO which demonstrated right heart strain. He presents for thrombectomy due to contraindication for TPA. Description of Procedure: After written and informed consent was obtained the patient all risks, benefits and competitions were described patient was brought to the Automobile Mechanic laid in a supine position. The area of the groins were prepped and draped in usual sterile fashion. Utilizing ultrasound guidance the right common femoral vein was located and shown to be patent without thrombus and then was accessed with a micropuncture kit and utilizing Seldinger technique an 8-Lebanese sheath was placed. 035 guidewire was then advanced into the IVC under fluoroscopic guidance. Track was dilated and the Inari 24-Lebanese sheath was placed. An angled pigtail catheter was then placed and utilizing a J-wire the heart was entered and advanced into the pulmonary artery. Pigtail catheter was then removed over the wire and a JR4 catheter was placed and the right pulmonary artery was entered and wire was placed to the main right pulmonary artery. The wire was then exchanged for an Amplatz wire in normal fashion. Patient was administered heparin at this time. A thrombectomy catheter was then advanced and pulmonary angiogram was obtained demonstrating thrombus within the right main and segmental branches as well as the left main. Mechanical thrombectomy was then performed with aspiration of multiple large clots. Aspiration was performed 3 times. Right pulmonary angiogram was then obtained demonstrating resolution of thrombus within the main pulmonary artery as well as the truncus anterior. Catheter was then selectively placed in the left main pulmonary artery and then a curved 22 Lebanese Inari catheter was placed and mechanical thrombectomy was performed 2 times. Pulmonary and gram was then obtained demonstrating complete resolution of thrombus with good filling to the outer aspects of the long on both sides. Once completed all catheters and wires were removed. A suture was placed in the right groin after the sheath was removed for hemostasis. Patient tolerated procedure well and was sent to recovery.
[2024-01-05] MEDS ORDERED: ACETAMINOPHEN TAB 325 MG TAB PO PRN (07:21)
[2024-01-05] MEDS ORDERED: INSULIN DETEMIR (LEVEMIR) 100 UNIT/ML SYR SQ PRN (07:21)
--- NOTE | 2024-01-05 07:21 | P.HPIM ---
History of Present Illness H&P Date: 01/04/24 This is a very pleasant 73-year-old male who presented to the emergency department via EMS from [facility] with concerns of hypoxia and being tachycardic with hypotension. Patient was recently just discharged to [facility] for strength and mobility as patient recently underwent a laparoscopic cholecystectomy with ERCP at [facility]. Patient had gone to ECF postsurgery and went home and continued to have weakness with concerns of dehydration and acute SONNY with uncontrolled blood sugars. Patient is a diabetic and blood sugars have been fairly controlled on insulin and was evaluated by physical therapy recommending rehab and patient was agreeable. Patient was sent to [facility] on DVT prophylaxis with subcutaneous heparin. Upon arrival to [facility] apparently patient was hypoxic of 86% on room air, mildly tachycardic and hypotensive and sent back to the emergency department for evaluation. Patient did have an elevated D-dimer and underwent CT of the chest showing nonocclusive and occlusive pulmonary emboli affecting all lobes with involvement of the right main pulmonary arteries with concerns of right heart strain and started on heparin and admitted for pulmonary and vascular surgery consultation. Patient did undergo venous Dopplers of the lower extremities which was negative for DVT. Vascular surgery following and patient is scheduled to undergo thrombectomy today. Patient oxygen saturations are above 92% on 2 L and hemodynamically stable in no acute apparent distress. Patient does have a past medical history of diabetes mellitus, eye disorder, hypertension, thyroid disorder, recent choledocholithiasis with laparoscopic cholecystectomy. Patient reports he follows with Dr. Teofilo Alcantara in the outpatient setting. REVIEW OF SYSTEMS: CONSTITUTIONAL: No fever, no malaise, no fatigue. HEENT: No recent visual problems or hearing problems. Denied any sore throat. CARDIOVASCULAR: No chest pain, orthopnea, PND, no palpitations, no syncope. PULMONARY: No reports of worsening shortness of breath, no cough, no hemoptysis. GASTROINTESTINAL: No diarrhea, no nausea, no vomiting, no abdominal pain. NEUROLOGICAL: No headaches, no weakness, no numbness. HEMATOLOGICAL: Denies any bleeding or petechiae. GENITOURINARY: Denies any burning micturition, frequency, or urgency. MUSCULOSKELETAL/RHEUMATOLOGICAL: Denies any joint pain, swelling, or any muscle pain. ENDOCRINE: Denies any polyuria or polydipsia. The rest of the 14-point review of systems is negative. PHYSICAL EXAMINATION: GENERAL: The patient is alert and oriented x3, fairly comfortable not in respiratory distress, maintained on 2 L. Well developed, well nourished. Elderly appearing HEENT: Pupils are round and equally reacting to light. EOMI. No scleral icterus. No conjunctival pallor. Normocephalic, atraumatic. No pharyngeal erythema. No thyromegaly. CARDIOVASCULAR: S1 and S2 muffled PULMONARY: Diminished breath sounds bilaterally otherwise chest is clear to auscultation, no wheezing or crackles. ABDOMEN: Soft, nontender, nondistended, normoactive bowel sounds. No palpable organomegaly. MUSCULOSKELETAL: No joint swelling or deformity. EXTREMITIES: No cyanosis, clubbing, or pedal edema. Right lower extremity chronic edema noted, nonpitting NEUROLOGICAL: Gross neurological examination did not reveal any focal deficits. Diffusely weak SKIN: No rashes. Assessment: Shortness of breath with hypoxia, likely secondary to bilateral pulmonary emboli with evidence of right heart strain Acute hypoxic respiratory failure secondary to above, currently on 2 L History of diabetes melitis, type II, uncontrolled with hyper and hypoglycemia Recent SONNY secondary to dehydration and possibly hypotension Urinary retention requiring indwelling Blancas catheter from previous hospitalization Recent laparoscopic cholecystectomy with ERCP at [facility] on 12/25/2023 Hypertension history, currently normotensive Generalized weakness with gait dysfunction GI prophylaxis DVT prophylaxis, currently on heparin Full code Plan: Patient was admitted with vascular surgery and pulmonary on consult. Plan is for thrombectomy with vascular surgery today as there are concerns for right heart strain. Patient is continued on heparin and will discuss with vascular surgery along with pulmonary regarding transitioning to oral anticoagulation. Continue with oxygen supplementation and wean as tolerated. Recommend incentive spirometer use at least 10 times every hour while awake Follow-up on repeat labs Continue indwelling Blancas catheter for now and continue with Flomax, trial of void once patient is more mobile As discussed previously on admission this week, general surgery evaluated recommending outpatient follow-up with [facility] surgeon who performed the cholecystectomy as patient continues with SUZETTE drain. Continue monitoring output of drainage tube PT/OT therapy to evaluate as patient will likely return to ECF for continued strength and mobility Home medications reviewed and resumed as appropriate Will await vascular surgery report The impression and plan of care has been dictated by Thao Hall, Nurse Practitioner as directed. Dr. Elder MD I have performed a history and examination and MDM of this patient, discussed the same with the dictator, and agree with the dictator's assessment and plan as written ,documented as a scribe. Based on total visit time, I have performed more than 50% of the visit. Past Medical History Past Medical History: Diabetes Mellitus, Eye Disorder, Hypertension, Thyroid Disorder Additional Past Medical History / Comment(s): GLAUCOMA. PANCREATITIS History of Any Multi-Drug Resistant Organisms: None Reported Additional Past Surgical History / Comment(s): BILATERAL CATARACTS/WITH LENS. COLONOSCOPIES. [place] Past Anesthesia/Blood Transfusion Reactions: No Reported Reaction Additional Past Anesthesia/Blood Transfusion Reaction / Comment(s): GENERAL ANESTHESIA. Past Psychological History: No Psychological Hx Reported Smoking Status: Former smoker Past Alcohol Use History: Rare Past Drug Use History: None Reported Medications and Allergies Home Medications Medication Instructions Recorded Confirmed Type Atorvastatin [Lipitor] 40 mg PO DAILY 05/09/22 01/04/24 History Insulin Glargine,Hum.rec.anlog 10 unit SQ DAILY PRN 05/09/22 01/04/24 History [Lantus Solostar Pen] Latanoprost Ophth [Xalatan 0.005%] 1 drop LEFT EYE HS 05/09/22 01/04/24 History Brimonidine Tartrate [Alphagan P 1 drops BOTH EYES TID 12/20/23 01/04/24 History 0.2% Ophth Soln] methIMAzole [Tapazole] 5 mg PO DAILY 12/20/23 01/04/24 History Acetaminophen Tab [Tylenol] 650 mg PO Q6HR PRN tab 01/03/24 01/04/24 Rx Heparin Sodium,Porcine (1 ml) 5,000 unit SQ Q12HR each 01/03/24 01/04/24 Rx [Heparin Sodium] Tamsulosin HCl [Flomax] 0.4 mg PO DAILY #30 capsule 01/03/24 01/04/24 Rx Calcium Carb-Vit D 500Mg-5Mcg 1 tab PO TID-W/MEALS 01/04/24 01/04/24 History [Oscal 500+D 5 Mcg (200 Iu)] INSULIN ASPART (NovoLOG) [NovoLOG See Protocol SQ AC-TID 01/04/24 01/04/24 History (formulary)] Allergies Allergy/AdvReac Type Severity Reaction Status Date / Time No Known Allergies Allergy Verified 01/04/24 07:34 Physical Exam Vitals: Vital Signs Temp Pulse Resp BP Pulse Ox 01/04/24 07:41 97 18 122/75 97 01/04/24 04:45 101 H 20 110/77 95 01/04/24 03:31 97 01/04/24 01:37 104 H 22 115/73 97 01/03/24 23:18 109 H 20 112/70 98 01/03/24 21:44 97.7 F 112 H 20 96/70 93 L Intake and Output 01/03/24 01/04/24 01/04/24 22:59 06:59 14:59 Other: Weight 83.007 kg Results CBC & Chem 7: 01/03/24 22:58 01/03/24 22:58 Labs: Abnormal Lab Results - Last 24 Hours (Table) 01/03/24 01/03/24 01/03/24 Range/Units 22:58 22:58 22:58 RBC 3.11 L (4.30-5.90) m/uL Hgb 10.3 L (13.0-17.5) gm/dL Hct 33.7 L (39.0-53.0) % MCV 108.3 H (80.0-100.0) fL MCHC 30.5 L (31.0-37.0) g/dL D-Dimer 16.67 H (<0.60) mg/L FEU Sodium 136 L (137-145) mmol/L Creatinine 1.30 H (0.66-1.25) mg/dL Glucose 285 H (74-99) mg/dL Total Protein 5.5 L (6.3-8.2) g/dL Albumin 2.8 L (3.5-5.0) g/dL Urine Glucose (UA) (Negative) Urine Blood (Negative) Urine Mucus (None) /hpf 01/03/24 Range/Units 23:14 RBC (4.30-5.90) m/uL Hgb (13.0-17.5) gm/dL Hct (39.0-53.0) % MCV (80.0-100.0) fL MCHC (31.0-37.0) g/dL D-Dimer (<0.60) mg/L FEU Sodium (137-145) mmol/L Creatinine (0.66-1.25) mg/dL Glucose (74-99) mg/dL Total Protein (6.3-8.2) g/dL Albumin (3.5-5.0) g/dL Urine Glucose (UA) 4+ H (Negative) Urine Blood Trace H (Negative) Urine Mucus Rare H (None) /hpf Thrombosis Risk Factor Assmnt - DVT/VTE Prophylaxis DVT/VTE Prophylaxis: Pharmacologic Prophylaxis ordered Assessment and Plan Time with Patient: Greater than 30
[2024-01-05] MEDS ORDERED: DEXTROSE 50% SYRINGE 50 ML IVP PRN ×2 (07:22)
[2024-01-05 09:09] LABS: HCT 31.6 % (39.0-53.0); HGB 9.7 gm/dL (13.0-17.5); Hypochromasia Moderate; MCH 33.1 pg (25.0-35.0); MCHC 30.6 g/dL (31.0-37.0); MCV 108.1 fL (80.0-100.0); Macrocytosis Marked; Mean Platelet Volume 9.5; Platelet Count 280 k/uL (150-450); RBC 2.92 m/uL (4.30-5.90); RDW 14.1 % (11.5-15.5); WBC 9.3 k/uL (3.8-10.6)
[2024-01-05 09:23] LABS: African American GFR (CKD) 79 (>60 ml/min/1.73 sqM); Anion Gap 4 mmol/L; Blood Urea Nitrogen 9 mg/dL (9-20); Calcium 8.5 mg/dL (8.4-10.2); Carbon Dioxide 22 mmol/L (22-30); Chloride 108 mmol/L (98-107); Glucose 159 mg/dL (74-99); Non-African American GFR(CKD) 69 (>60 ml/min/1.73 sqM); Potassium 4.4 mmol/L (3.5-5.1); Sodium 134 mmol/L (137-145)
[2024-01-05] MEDS: INSULIN ASPART (NovoLOG) 100 UNIT/ML VIAL SQ SCH (09:29)
[2024-01-05] MEDS: ATORVASTATIN 40 MG TAB PO SCH (09:29)
[2024-01-05] MEDS: methIMAzole 5 MG TAB PO SCH (09:29)
[2024-01-05] MEDS: CALCIUM CARB-VIT D 500 MG-5 MCG TAB PO SCH (09:29)
[2024-01-05] MEDS: TAMSULOSIN 0.4 MG CAP.ER.24H PO SCH (09:29)
--- NOTE | 2024-01-05 09:30 | P.PN ---
Subjective Progress Note Date: 01/05/24 Patient seen and examined. Doing well. Off oxygen. Resting comfortably feels much better than previous. Feels weak overall Objective - Vital Signs Vital signs: Vital Signs Temp 99.0 F 01/05/24 03:01 Pulse 105 H 01/05/24 03:01 Resp 18 01/05/24 03:01 BP 120/67 01/05/24 03:01 Pulse Ox 90 L 01/05/24 09:21 FiO2 Intake & Output 01/04/24 01/05/24 01/05/24 18:59 06:59 18:59 Intake Total 374.351 148.165 79.271 Output Total 655 1120 Balance -280.649 -971.835 79.271 Weight 83.007 kg Intake: IV 210 Invasive Line 1 10 Intake, IV Titration 164.351 148.165 79.271 Amount Heparin Sod,Pork in 0.45% 164.351 148.165 79.271 NaCl 25,000 unit In 0.45 % NaCl 1 250ml.bag @ 18 UNITS/KG/HR 14.941 mls/hr IV .[id number] [facility] Rx#: [id number] Output: Drainage 80 20 Right Abdomen 80 20 Urine 575 1100 Uretheral (Blancas) 575 Other: Voiding Method Indwelling Catheter Indwelling Catheter - Exam No acute distress resting comfortably on room air. Abdomen soft. Right SUZETTE drain with serosanguineous drainage. Right groin access site clean and dry. No obvious hematoma. Sutures removed. - Labs CBC & Chem 7: 01/05/24 07:42 01/05/24 07:42 Labs: Abnormal Lab Results - Last 24 Hours (Table) 01/04/24 01/04/24 01/05/24 Range/Units 10:07 14:26 00:02 RBC (4.30-5.90) m/uL Hgb (13.0-17.5) gm/dL Hct (39.0-53.0) % MCV (80.0-100.0) fL MCHC (31.0-37.0) g/dL Macrocytosis APTT >200.0 H* 40.5 H 146.6 H* (22.0-30.0) sec Sodium (137-145) mmol/L Chloride (98-107) mmol/L Glucose (74-99) mg/dL 01/05/24 01/05/24 01/05/24 Range/Units 07:42 07:42 07:42 RBC 2.92 L (4.30-5.90) m/uL Hgb 9.7 L (13.0-17.5) gm/dL Hct 31.6 L (39.0-53.0) % MCV 108.1 H (80.0-100.0) fL MCHC 30.6 L (31.0-37.0) g/dL Macrocytosis Marked A APTT 84.8 H (22.0-30.0) sec Sodium 134 L (137-145) mmol/L Chloride 108 H (98-107) mmol/L Glucose 159 H (74-99) mg/dL Assessment and Plan Assessment: 1. Bilateral pulmonary emboli with evidence of right heart strain 2. Recent cholecystectomy done on 12/26/2023 3. Diabetes mellitus 4. Chronic kidney disease 5. Hypertension Plan: Okay to transition to oral anticoagulation.Doing well overall. Continue conservative measures and medical management. From my standpoint may be discharged Follow-up with Dr. Haney in the office in 2 weeks
[2024-01-05 11:40] LABS: Glucose,Whole Blood 269 mg/dL (70-110)
--- NOTE | 2024-01-05 12:15 | P.PN ---
Subjective Progress Note Date: 01/05/24 Principal diagnosis: Shortness of breath, pulmonary embolism. This is a 73-year-old gentleman who was recently here from 12/29 to 01/03/2024 uncontrolled diabetes mellitus having issues with hyper and hypoglycemia. He also had dehydration and acute renal failure. He had recently undergone laparoscopic cholecystectomy with SUZETTE drain and ERCP at [facility]. He did have issues with urinary retention requiring an indwelling Blancas catheter. [facility] only [facility] a few hours when he had developed low O2 saturations, tachycardia and hypotension. Seen this morning in the emergency department. He is resting on a stretcher. He is awake and alert in no acute distress. He denies any significant chest pain. No hemoptysis. He did have O2 saturations in the 80s in the emergency department he is currently placed on 2 L/min with O2 saturations in the high 90s. He has been afebrile. Hemodynamically stable. White count 8.1. Hemoglobin 10.3. Platelets 264. Sodium 136. Potassium 4.5. Bicarb 25. BUN 14. Creatinine 1.30. Glucose 285. CT angiogram did reveal nonocclusive and occlusive pulmonary emboli affecting all lobes with involvement of the right main pulmonary arteries. No evidence of saddle emboli. RV to LV ratio is 1.7 consistent with right heart strain. Dopplers of the lower extremities were negative for DVT chest x-ray revealed minimal dependent airspace disease without acute pulmonary process. Echocardiogram did reveal preserved left ventricular systolic function. There is noted dilated right ventricle with global hypokinesis. Severe tricuspid regurg and moderate to severe pulmonary hypertension. The plan today is for percutaneous pulmonary thrombectomy with vascular surgery. Progress note dated January 05, 2024. 73-year-old black male, with a recent diagnosis of pulmonary embolism. The patient is postoperative day #1, status post suction thrombectomy. The procedure was done by one of the vascular surgeons. He currently remains on IV heparin, and is receiving oxygen by nasal cannula at 2 L. His breathing is improved. He has had a recent hospitalization, at multiple hospitals, and he has been sedentary. Current laboratory data includes a white count 9.3, hemoglobin 9.7, hematocrit 31.6, and a normal platelet count. Sodium 134, potassium 4.4, chlorides 108, CO2 22, BUN 9 and creatinine 1.07. Glucose is 159. Calcium is 8.5. Objective - Vital Signs Vital signs: Vital Signs Temp 99.0 F 01/05/24 03:01 Pulse 105 H 01/05/24 03:01 Resp 18 01/05/24 03:01 BP 120/67 01/05/24 03:01 Pulse Ox 90 L 01/05/24 09:21 FiO2 Intake & Output 01/04/24 01/05/24 01/05/24 18:59 06:59 18:59 Intake Total 374.351 148.165 321.429 Output Total 655 1120 Balance -280.649 -971.835 321.429 Weight 83.007 kg Intake: IV 210 Invasive Line 1 10 Intake, IV Titration 164.351 148.165 81.429 Amount Heparin Sod,Pork in 0.45% 164.351 148.165 81.429 NaCl 25,000 unit In 0.45 % NaCl 1 250ml.bag @ 18 UNITS/KG/HR 14.941 mls/hr IV .[id number] [facility] Rx#: [id number] Oral 240 Output: Drainage 80 20 Right Abdomen 80 20 Urine 575 1100 Uretheral (Blancas) 575 Other: Voiding Method Indwelling Catheter Indwelling Catheter - Exam No acute distress, oriented 3. No respiratory distress. Currently on 2 L of oxygen. HEENT examination is grossly unremarkable. Mucous membranes are moist. No oral lesions. Neck supple. Full range of motion. No adenopathy thyromegaly or neck vein distention. Cardiovascular examination reveals regular rhythm rate. S1-S2 normal. No S3 or S4. No discernible murmur noted. Heart rate is 100 bpm. Lungs reveal clear breath sounds. Breath sounds are equal bilaterally. No adventitious lung sounds including wheezes rhonchi or crackles. Saturations are 92% on 2 L. Abdomen soft bowel sounds are heard. No masses or tenderness. Extremities are intact. No cyanosis clubbing or edema. Skin is without rash or lesion. Neurologic examination is brief but nonfocal. - Labs CBC & Chem 7: 01/05/24 07:42 01/05/24 07:42 Labs: Abnormal Lab Results - Last 24 Hours (Table) 01/04/24 01/05/24 01/05/24 Range/Units 14:26 00:02 07:42 RBC (4.30-5.90) m/uL Hgb (13.0-17.5) gm/dL Hct (39.0-53.0) % MCV (80.0-100.0) fL MCHC (31.0-37.0) g/dL Macrocytosis APTT 40.5 H 146.6 H* (22.0-30.0) sec Sodium 134 L (137-145) mmol/L Chloride 108 H (98-107) mmol/L Glucose 159 H (74-99) mg/dL POC Glucose (mg/dL) (70-110) mg/dL 01/05/24 01/05/24 01/05/24 Range/Units 07:42 07:42 11:39 RBC 2.92 L (4.30-5.90) m/uL Hgb 9.7 L (13.0-17.5) gm/dL Hct 31.6 L (39.0-53.0) % MCV 108.1 H (80.0-100.0) fL MCHC 30.6 L (31.0-37.0) g/dL Macrocytosis Marked A APTT 84.8 H (22.0-30.0) sec Sodium (137-145) mmol/L Chloride (98-107) mmol/L Glucose (74-99) mg/dL POC Glucose (mg/dL) 269 H (70-110) mg/dL Assessment and Plan Assessment: Acute hypoxemic respiratory failure secondary to acute bilateral pulmonary emboli with evidence of right heart strain. S/P percutaneous pulmonary thrombectomy with Inari, January 04, 2024. Recent admission here for diabetes mellitus with poorly controlled glucose levels. Recent hospitalization at [facility] for cholecystectomy with ERCP and SUZETTE drain placement. Urinary retention requiring Blancas catheter placement . History of hypertension. Plan: Plan dated January 05, 2024. The patient is seen today in room 377. He is resting comfortably. He is pos toperative day #1, status post suction thrombectomy. He is on 2 L of oxygen. He continues on IV heparin. Labs, x-rays, medications are reviewed. The patient's overall prognosis remains guarded. The patient has been in and out of the hospitals recently, with significant reduced activity. We will continue to follow the patient, make recommendations along the way. The patient will need a repeat CT scan in about 8 to 10 weeks. The patient will follow-up in our office. Time with Patient: Less than 30
[2024-01-05 12:35] LABS: Band Neutrophils % 1 %; Eosinophils # (M) 0.19 k/uL (0-0.7); Monocytes # (M) 0.47 k/uL (0-1.0); Neutrophils % (M) 78 %; Nucleated Red Blood Cells 0 /100 WBC (0-0); Total Cells Counted 100
[2024-01-05] MEDS: BRIMONIDINE TARTRATE 0.2% DROPS 5 ML BTL BOTH EYES SCH (12:47)
[2024-01-05 16:47] LABS: Glucose,Whole Blood 137 mg/dL (70-110)
[2024-01-05 20:13] LABS: Glucose,Whole Blood 221 mg/dL (70-110)
[2024-01-05] MEDS: LATANOPROST 0.005% OPHTH DROPS 2.5 ML BTL LEFT EYE SCH (21:05)
[2024-01-06 06:22] LABS: Glucose,Whole Blood 175 mg/dL (70-110)
[2024-01-06 11:48] LABS: Glucose,Whole Blood 212 mg/dL (70-110)
--- NOTE | 2024-01-06 12:31 | P.PN ---
Subjective Progress Note Date: 01/06/24 Principal diagnosis: Shortness of breath, pulmonary embolism. This is a 73-year-old gentleman who was recently here from 12/29 to 01/03/2024 uncontrolled diabetes mellitus having issues with hyper and hypoglycemia. He also had dehydration and acute renal failure. He had recently undergone laparoscopic cholecystectomy with SUZETTE drain and ERCP at [facility]. He did have issues with urinary retention requiring an indwelling Blancas catheter. [facility] was only [facility] a few hours when he had developed low O2 saturations, tachycardia and hypotension. Seen this morning in the emergency department. He is resting on a stretcher. He is awake and alert in no acute distress. He denies any significant chest pain. No hemoptysis. He did have O2 saturations in the 80s in the emergency department he is currently placed on 2 L/min with O2 saturations in the high 90s. He has been afebrile. Hemodynamically stable. White count 8.1. Hemoglobin 10.3. Platelets 264. Sodium 136. Potassium 4.5. Bicarb 25. BUN 14. Creatinine 1.30. Glucose 285. CT angiogram did reveal nonocclusive and occlusive pulmonary emboli affecting all lobes with involvement of the right main pulmonary arteries. No evidence of saddle emboli. RV to LV ratio is 1.7 consistent with right heart strain. Dopplers of the lower extremities were negative for DVT chest x-ray revealed minimal dependent airspace disease without acute pulmonary process. Echocardiogram did reveal preserved left ventricular systolic function. There is noted dilated right ventricle with global hypokinesis. Severe tricuspid regurg and moderate to severe pulmonary hypertension. The plan today is for percutaneous pulmonary thrombectomy with vascular surgery. Progress note dated January 05, 2024. 73-year-old black male, with a recent diagnosis of pulmonary embolism. The patient is postoperative day #1, status post suction thrombectomy. The procedure was done by one of the vascular surgeons. He currently remains on IV heparin, and is receiving oxygen by nasal cannula at 2 L. His breathing is improved. He has had a recent hospitalization, at multiple hospitals, and he has been sedentary. Current laboratory data includes a white count 9.3, hemoglobin 9.7, hematocrit 31.6, and a normal platelet count. Sodium 134, potassium 4.4, chlorides 108, CO2 22, BUN 9 and creatinine 1.07. Glucose is 159. Calcium is 8.5. Progress note dated January 06, 2024. 73-year-old black male with a recent diagnosis of pulmonary embolism. The patient is postop day #2, status post suction thrombectomy. The patient's on 2 L of oxygen by nasal cannula. The patient continues on IV heparin. Clinically, he is feeling much better, and denies any shortness of breath, cough, wheezing, chest tightness, chest pain or pressure. Current labs include a glucose of 212. Objective - Vital Signs Vital signs: Vital Signs Temp 99 F 01/06/24 11:25 Pulse 95 01/06/24 11:25 Resp 20 01/06/24 11:25 BP 119/72 01/06/24 11:25 Pulse Ox 91 L 01/06/24 11:25 FiO2 Intake & Output 01/05/24 01/06/24 01/06/24 18:59 06:59 18:59 Intake Total 713.771 180 Output Total 1040 1175 670 Balance -326.229 -1175 -490 Intake: Intake, IV Titration 174.771 Amount Heparin Sod,Pork in 0.45% 174.771 NaCl 25,000 unit In 0.45 % NaCl 1 250ml.bag @ 18 UNITS/KG/HR 14.941 mls/hr IV .[id number] [facility] Rx#: [id number] Oral 539 180 Output: Drainage 40 25 20 Right Abdomen 40 25 20 Urine 1000 1150 650 Other: Voiding Method Indwelling Catheter Indwelling Catheter Indwelling Catheter - Exam No acute distress, oriented 3. No respiratory distress. Currently on 2 L of oxygen. HEENT examination is grossly unremarkable. Mucous membranes are moist. No oral lesions. Neck supple. Full range of motion. No adenopathy thyromegaly or neck vein distention. Cardiovascular examination reveals regular rhythm rate. S1-S2 normal. No S3 or S4. No discernible murmur noted. Heart rate is 91 bpm. Lungs reveal clear breath sounds. Breath sounds are equal bilaterally. No ad ventitious lung sounds including wheezes rhonchi or crackles. Saturations are 96% on 2 L. Abdomen soft bowel sounds are heard. No masses or tenderness. Extremities are intact. No cyanosis clubbing or edema. Skin is without rash or lesion. Neurologic examination is brief but nonfocal. - Labs CBC & Chem 7: 05/18/24 07:42 01/05/24 07:42 Labs: Abnormal Lab Results - Last 24 Hours (Table) 01/05/24 01/05/24 01/05/24 Range/Units 15:27 16:45 20:11 APTT 80.3 H (22.0-30.0) sec POC Glucose (mg/dL) 137 H 221 H (70-110) mg/dL 01/06/24 01/06/24 01/06/24 Range/Units 00:35 06:21 11:46 APTT 64.7 H (22.0-30.0) sec POC Glucose (mg/dL) 175 H 212 H (70-110) mg/dL Assessment and Plan Assessment: Acute hypoxemic respiratory failure secondary to acute bilateral pulmonary emboli with evidence of right heart strain. S/P percutaneous pulmonary thrombectomy with Inari, January 04, 2024. Recent admission here for diabetes mellitus with poorly controlled glucose levels. Recent hospitalization at [facility] for cholecystectomy with ERCP and SUZETTE drain placement. Urinary retention requiring Blancas catheter placement . History of hypertension. Plan: Plan dated January 05, 2024. The patient is seen today in room 377. He is resting comfortably. He is postoperative day #1, status post suction thrombectomy. He is on 2 L of oxygen. He continues on IV heparin. Labs, x-rays, medications are reviewed. The patient's overall prognosis remains guarded. The patient has been in and out of the hospitals recently, with significant reduced activity. We will continue to follow the patient, make recommendations along the way. The patient will need a repeat CT scan in about 8 to 10 weeks. The patient will follow-up in our office. Plan dated January 06, 2024. The patient is currently on 2 L of oxygen. Saturations are 96%. The patient continues on IV heparin, and can be transition to a factor Xa inhibitor. Labs, x-rays, medications are reviewed. The patient is postop day #2, status post suction thrombectomy. We will continue to follow the patient, and make recommendations along the way. Prognosis is guarded. Time with Patient: Less than 30
[2024-01-06] MEDS: Apixaban Initiation Dose--VTE 5 MG TAB PO SCH (12:44)
--- NOTE | 2024-01-06 12:59 | P.PN ---
Subjective Progress Note Date: 01/05/24 This is a very pleasant 73-year-old male who presented to the emergency department via EMS from [facility] with concerns of hypoxia and being tachycardic with hypotension. Patient was recently just discharged to ECF for strength and mobility as patient recently underwent a laparoscopic cholecystectomy with ERCP at [facility]. Patient had gone to ECF postsurgery and went home and continued to have weakness with concerns of dehydration and acute SONNY with uncontrolled blood sugars. Patient is a diabetic and blood sugars have been fairly controlled on insulin and was evaluated by physical therapy recommending rehab and patient was agreeable. Patient was sent to ECF on DVT prophylaxis with subcutaneous heparin. Upon arrival to [facility] apparently patient was hypoxic of 86% on room air, mildly tachycardic and hypotensive and sent back to the emergency department for evaluation. Patient did have an elevated D-dimer and underwent CT of the chest showing nonocclusive and occlusive pulmonary embo li affecting all lobes with involvement of the right main pulmonary arteries with concerns of right heart strain and started on heparin and admitted for pulmonary and vascular surgery consultation. Patient did undergo venous Dopplers of the lower extremities which was negative for DVT. Vascular surgery following and patient is scheduled to undergo thrombectomy today. Patient oxygen saturations are above 92% on 2 L and hemodynamically stable in no acute apparent distress. Patient does have a past medical history of diabetes mellitus, eye disorder, hypertension, thyroid disorder, recent chol edocholithiasis with laparoscopic cholecystectomy. Patient reports he follows with Dr. Teofilo Alcantara in the outpatient setting. 01/05/2024 Patient is evaluated today in follow up on the medical floor. Patient underwent thrombectomy with vascular surgery for bilateral pulmonary embolism with right h eart strain. Patient had percutaneous thrombectomy with extirpation of matter to the right main pulmonary artery, the right truncus arteriosus in the left main pulmonary artery. Patient continues on IV heparin. For improvement in his shortness of breath and currently is on oxygen 2 L of nasal cannula. Renal function has improved with a BUN of 9 creatinine of 1.07. Blood glucose is elevated in the 200s and will change Levemir to scheduled instead of as needed. 01/06/2024 Patient is evaluated in follow-up today he reports feeling less short of breath and has been taken off of the oxygen. Saturations are about 93% on room air. Patient will transition off of the heparin drip to Eliquis. Review of Systems Constitutional: Denied any fatigue denied any fever. Cardio vascular: denied any chest pain, palpitations Gastrointestinal: denied any nausea, vomiting, diarrhea Pulmonary: Denied any shortness of breath cough Neurologic denied any new focal deficits All inpatient medications were reviewed and appropriate changes in these medications as dictated in the interval history and assessment and plan. PHYSICAL EXAMINATION: GENERAL: The patient is alert and oriented x3, fairly comfortable not in respiratory distress, maintained on 2 L. Well developed, well nourished. Elderly appearing HEENT: Pupils are round and equally reacting to light. EOMI. No scleral icterus. No conjunctival pallor. Normocephalic, atraumatic. No pharyngeal erythema. No thyromegaly. CARDIOVASCULAR: S1 and S2 muffled PULMONARY: Diminished breath sounds bilaterally otherwise chest is clear to auscultation, no wheezing or crackles. ABDOMEN: Soft, nontender, nondistended, normoactive bowel sounds. No palpable organomegaly. MUSCULOSKELETAL: No joint swelling or deformity. EXTREMITIES: No cyanosis, clubbing, or pedal edema. Right lower extremity chronic edema noted, nonpitting NEUROLOGICAL: Gross neurological examination did not reveal any focal deficits. Diffusely weak SKIN: No rashes. Assessment: Shortness of breath with hypoxia, likely secondary to bilateral pulmonary emboli with evidence of right heart strain Acute hypoxic respiratory failure secondary to above, currently on 2 L History of diabetes melitis, type II, uncontrolled with hyper and hypoglycemia Recent SONNY secondary to dehydration and possibly hypotension Urinary retention requiring indwelling Blancas catheter from previous hospitalization Recent laparoscopic cholecystectomy with ERCP at [facility] on 12/25/2023 Hypertension history, currently normotensive Generalized weakness with gait dysfunction GI prophylaxis DVT prophylaxis, currently on heparin Full code Plan: [facility] is status [facility] Continue with oxygen supplementation and wean as tolerated. Recommend incentive spirometer use at least 10 times every hour while awake Follow-up on repeat labs Continue indwelling Blancas catheter for now and continue with Flomax, trial of void once patient is more mobile As discussed previously on admission this week, general surgery evaluated recommending outpatient follow-up with [facility] surgeon who performed the cholecystectomy as patient continues with SUZETTE drain. Continue monitoring output of drainage tube PT/OT therapy to evaluate as patient will likely return to ECF for continued strength and mobility Home medications reviewed and resumed as appropriate Will await vascular surgery report The impression and plan of care has been dictated by Yuly Lock Nurse Practitioner as directed. Dr. Elder MD I have performed a history and physical examination and medical decision making of this patient, discussed the same with the dictator, and agree with the dictators assessment and plan as written, documented as a scribe. Based on total visit time, I have performed more than 50% of this visit. Objective - Vital Signs Vital signs: Vital Signs Temp 99.0 F 01/05/24 03:01 Pulse 105 H 01/05/24 03:01 Resp 18 01/05/24 03:01 BP 120/67 01/05/24 03:01 Pulse Ox 90 L 01/05/24 03:01 FiO2 Intake & Output 01/04/24 01/05/24 01/05/24 18:59 06:59 18:59 Intake Total 374.351 148.165 Output Total 655 1120 Balance -280.649 -971.835 Weight 83.007 kg Intake: IV 210 Invasive Line 1 10 Intake, IV Titration 164.351 148.165 Amount Heparin Sod,Pork in 0.45% 164.351 148.165 NaCl 25,000 unit In 0.45 % NaCl 1 250ml.bag @ 18 UNITS/KG/HR 14.941 mls/hr IV .[id number] [facility] Rx#: [id number] Output: Drainage 80 20 Right Abdomen 80 20 Urine 575 1100 Uretheral (Blancas) 575 Other: Voiding Method Indwelling Catheter Indwelling Catheter - Labs CBC & Chem 7: 01/05/24 07:42 01/05/24 07:42 Labs: Abnormal Lab Results - Last 24 Hours (Table) 01/04/24 01/04/24 01/05/24 Range/Units 10:07 14:26 00:02 RBC (4.30-5.90) m/uL Hgb (13.0-17.5) gm/dL Hct (39.0-53.0) % MCV (80.0-100.0) fL MCHC (31.0-37.0) g/dL Macrocytosis APTT >200.0 H* 40.5 H 146.6 H* (22.0-30.0) sec 01/05/24 01/05/24 Range/Units 07:42 07:42 RBC 2.92 L (4.30-5.90) m/uL Hgb 9.7 L (13.0-17.5) gm/dL Hct 31.6 L (39.0-53.0) % MCV 108.1 H (80.0-100.0) fL MCHC 30.6 L (31.0-37.0) g/dL Macrocytosis Marked A APTT 84.8 H (22.0-30.0) sec Assessment and Plan Time with Patient: Less than 30
[2024-01-06] MEDS ORDERED: BENZOCAINE/MENTHOL LOZENG 1 EACH LOZENGE MUCOUS MEM PRN (13:07)
[2024-01-06] MEDS: guaiFENesin SYRUP 100MG/5ML 200 MG/10 ML CUP PO PRN (13:46)
[2024-01-06 16:26] LABS: Glucose,Whole Blood 270 mg/dL (70-110)
[2024-01-06 20:12] LABS: Glucose,Whole Blood 254 mg/dL (70-110)
[2024-01-07 00:04] VITALS: RESP 18
[2024-01-07 06:03] LABS: Glucose,Whole Blood 173 mg/dL (70-110)
[2024-01-07] MEDS: INSULIN DETEMIR (LEVEMIR) 100 UNIT/ML SYR SQ SCH (06:23)
--- NOTE | 2024-01-07 11:11 | CDI ---
Documentation Clarification Form Date: 01/07/2024 From: Claudia Chavez Phone: [phone] Admit Date: 01/04/2024 04:22:00 AM Patient Name: Brett Beavers Visit Number: [id number] Discharge Date: ATTENTION: The Clinical Documentation Specialists (CDI) and [facility] Coding Staff appreciate your assistance in clarifying documentation. Please respond to the clarification below the line at the bottom and electronically sign. The CDI & [facility] Coding staff will review the response and follow-up if needed. Please note: Queries are made part of the Legal Health Record. If you have any questions, please contact the author of this message via ITS. Dr. Sunil Liz: There is documentation of Acute bilateral pulmonary emboli with evidence of right heart strain in the Pulmonology progress note 01/05. Additional clarification is requested. History/Risk Factors: DM, HTN who presents with hypoxia, tachycardia and bilateral PE Clinical Indicators: 01/02 Triage VS: 96/70, 97.7, 112, 20, 93% 2 liters nasal cannula 01/03 Operative note, Pre/post-operative Diagnosis: "Acute bilateral pulmonary embolism with right heart strain" 01/04 H&P, Assessment: "Shortness of breath with hypoxia, likely secondary to bilateral pulmonary emboli with evidence of right heart strain." 01/05 Pulmonology PN, Assessment and Plan: "Acute hypoxic respiratory failure secondary to acute bilateral pulmonary emboli with evidence of right heart strain." 01/03 ECHO: "EF 55-60%, Right ventricular dilation. Moderate to severe pulmonary hypertension. Right ventricular systolic pressure estimated at 59mm hg. global hypokinesis, sparing the apex, Mild right atrial dilation. No right atrial thrombus or mass seen." 01/03 CTA Chest, Impression: "1. Nonocclusive and occlusive pulmonary emboli affecting all lobes with involvement of the right main pulmonary arteries. No evidence of saddle emboli. 2. RV-LV ratio is 1.7. Findings can be seen with right heart strain." Treatment: Mechanical thrombectomy by vascular surgery on 01/03 Heparin 6,640.56 units bolus once 01/03, then titrated heparin drip 01/03-01/05 Apixaban 10mg oral BID x 7 days then 5mg BID thereafter start 01/05 Can you please clarify the right heart strain? [ ] Acute bilateral pulmonary embolism with acute cor pulmonale [ ] Evidence of right heart strain clinically insignificant [ ] Other, please specify [ x ] Unable to determine MTDD
[2024-01-07 11:32] LABS: Glucose,Whole Blood 213 mg/dL (70-110)
--- NOTE | 2024-01-07 11:35 | P.PN ---
Subjective Progress Note Date: 01/07/24 Principal diagnosis: Bilateral pulmonary emboli with evidence of right heart strain Patient is seen and examined today as a follow-up. He is status post transluminal percutaneous thrombectomy. States breathing continues to be improved. He has a cough. Objective - Vital Signs Vital signs: Vital Signs Temp 98.9 F 01/06/24 23:23 Pulse 98 01/07/24 04:06 Resp 18 01/07/24 04:06 BP 129/72 01/07/24 04:06 Pulse Ox 94 L 01/07/24 04:06 FiO2 Intake & Output 01/06/24 01/07/24 01/07/24 18:59 06:59 18:59 Intake Total 540 0 540 Output Total 1580 1260 Balance -1040 -1260 540 Intake: Oral 540 0 540 Output: Drainage 30 10 Right Abdomen 30 10 Urine 1550 1250 Other: Voiding Method Indwelling Catheter Indwelling Catheter # Voids 0 # Bowel Movements 0 - Exam General appearance: The patient is alert, oriented, appears in no acute distress. HET: Head is normocephalic and atraumatic. Pupils are equal and reactive. Neck: Supple. Heart: Regular. Lungs: Equal expansion, normal respiratory effort. Abdomen: Soft, nontender, nondistended. Extremities: Normal skin color and turgor. Neurological: Alert and oriented. - Labs CBC & Chem 7: 01/05/24 07:42 01/05/24 07:42 Labs: Abnormal Lab Results - Last 24 Hours (Table) 01/06/24 01/06/24 01/06/24 Range/Units 11:46 16:25 20:11 POC Glucose (mg/dL) 212 H 270 H 254 H (70-110) mg/dL 01/07/24 Range/Units 06:02 POC Glucose (mg/dL) 173 H (70-110) mg/dL Assessment and Plan Assessment: 1. Bilateral pulmonary emboli with evidence of right heart strain status post percutaneous pulmonary thrombectomy 2. Recent cholecystectomy done on 12/26/2023 3. Diabetes mellitus 4. Chronic kidney disease 5. Hypertension Plan: 1. Patient has been transition to oral anticoagulation. Recommend 6 months outpatient anticoagulation. 2. Rest of medical management per primary medical team 3. Patient is cleared from vascular surgery for discharge, follow-up with Dr. Haney in 3 to 4 weeks. Thank you for this consultation, we will sign off at this time. The impression and plan of care has been dictated as directed. Dr. Haney I performed a history and examination of this patient, discussed the same with the dictator. I agree with the dictator's note ,documented as a scribe. Any additional findings or plans will be noted.
[2024-01-07 11:47] LABS: African American GFR (CKD) 58 (>60 ml/min/1.73 sqM); Anion Gap 5 mmol/L; Blood Urea Nitrogen 11 mg/dL (9-20); Calcium 9.1 mg/dL (8.4-10.2); Carbon Dioxide 26 mmol/L (22-30); Chloride 105 mmol/L (98-107); Glucose 195 mg/dL (74-99); Magnesium 1.8 mg/dL (1.6-2.3); Non-African American GFR(CKD) 50 (>60 ml/min/1.73 sqM); Potassium 4.5 mmol/L (3.5-5.1); Sodium 136 mmol/L (137-145)
--- NOTE | 2024-01-07 15:40 | P.PN ---
Subjective Progress Note Date: 01/07/24 On today's evaluation of 01/07/2024, I am seeing the patient for a follow-up. The patient is doing well. No specific complaints. The patient is post mechanical thrombectomy using the Inari device. Doppler of the lower extremities were negative for DVT. CTA of the chest showed bilateral pulmonary embolism. The patient is currently off IV heparin and the patient is currently on anticoagulation with Eliquis 10 mg p.o. twice a day. Clinically stable. Hemodynamically stable. Oxygenation is improved and the patient is currently on room air oxygen with a pulse ox ranging between 95 to 98%. He has undergone recent cholecystectomy with ERCP and he continues to have a Blancas catheter in place for urinary retention. No hemoptysis. No pleurisy. No chest pain. BUN is 11 with a creatinine of 1.35 and a sodium level of 136. The patient's WBC count is at 9.3 with a hemoglobin 9.7. Noted the patient has chronic kidney disease and his creatinine essentially stable at this point in time. Objective - Vital Signs Vital signs: Vital Signs Temp 98.9 F 01/06/24 23:23 Pulse 98 01/07/24 04:06 Resp 18 01/07/24 04:06 BP 129/72 01/07/24 04:06 Pulse Ox 94 L 01/07/24 04:06 FiO2 Intake & Output 01/06/24 01/07/24 01/07/24 18:59 06:59 18:59 Intake Total 540 0 540 Output Total 1580 1260 Balance -1040 -1260 540 Intake: Oral 540 0 540 Output: Drainage 30 10 Right Abdomen 30 10 Urine 1550 1250 Other: Voiding Method Indwelling Catheter Indwelling Catheter # Voids 0 # Bowel Movements 0 - Exam No acute distress, oriented 3. No respiratory distress. Currently on room air oxygen. No signs of any respiratory distress HEENT examination is grossly unremarkable. Mucous membranes are moist. No oral lesions. Neck supple. Full range of motion. No adenopathy thyromegaly or neck vein distention. Cardiovascular examination reveals regular rhythm rate. S1-S2 normal. No S3 or S4. No discernible murmur noted. Lungs reveal clear breath sounds. Breath sounds are equal bilaterally. No adventitious lung sounds including wheezes rhonchi or crackles. Abdomen soft bowel sounds are heard. No masses or tenderness. Extremities are intact. No cyanosis clubbing or edema. Skin is without rash or lesion. Neurologic examination is brief but nonfocal. - Labs CBC & Chem 7: 01/05/24 07:42 01/07/24 10:44 Labs: Abnormal Lab Results - Last 24 Hours (Table) 01/06/24 01/06/24 01/07/24 Range/Units 16:25 20:11 06:02 Sodium (137-145) mmol/L Creatinine (0.66-1.25) mg/dL Glucose (74-99) mg/dL POC Glucose (mg/dL) 270 H 254 H 173 H (70-110) mg/dL 01/07/24 01/07/24 Range/Units 10:44 11:30 Sodium 136 L (137-145) mmol/L Creatinine 1.39 H (0.66-1.25) mg/dL Glucose 195 H (74-99) mg/dL POC Glucose (mg/dL) 213 H (70-110) mg/dL Assessment and Plan Plan: Acute hypoxemic respiratory failure secondary to acute bilateral pulmonary emboli with evidence of right heart strain. S/P percutaneous pulmonary thrombectomy with Inari, January 04, 2024. Clinically the patient improved and the patient is currently on room air oxygen. The patient has no DVTs in lower extremities and the patient is currently on anticoagulation with Eliquis. This is probably provoked following his most recent abdominal surgery. Diabetes mellitus with a recent admission here for diabetes mellitus with poorly controlled glucose levels. Cholelithiasis, recent hospitalization at [facility] for cholecystectomy with ERCP and SUZETTE drain placement. Urinary retention requiring Blancas catheter placement . History of hypertension. Plan: Increase mobility Oxygenation is improved and the patient is currently on room air oxygen Continue anticoagulation with Eliquis Management of Blancas catheter by the medical team Patient is currently on tamsulosin for urinary retention Continue Levemir insulin 10 units daily along with sliding scale insulin coverage Continue Tapazole Continue Lipitor Will continue to follow.
[2024-01-07 16:13] VITALS: BP 115/77; PULSE 93; TEMP 97.3
[2024-01-11 11:19] LABS: Glucose,Whole Blood 216 mg/dL (70-110)
[2024-01-11 11:20] LABS: Glucose,Whole Blood 187 mg/dL (70-110)
[2024-01-11 11:22] LABS: Glucose,Whole Blood 206 mg/dL (70-110)
[2024-01-11 11:22] LABS: Glucose,Whole Blood 163 mg/dL (70-110)
[2024-01-11 11:23] LABS: Glucose,Whole Blood 178 mg/dL (70-110)
--- NOTE | 2024-01-12 18:47 | P.DS ---
Providers Date of admission: 01/04/24 04:22 Expected date of discharge: 01/07/24 Attending physician: Joaquim De Souza Consults: 01/04/24 04:32 Consult Physician Urgent Consulting Provider: Sunil Liz Consult Reason/Comments: b/l pe Do you want consulting provider notified?: Yes 01/04/24 04:47 Consult Physician Urgent Consulting Provider: Rosetta Blancas Consult Reason/Comments: bilateral pe, heart strain Do you want consulting provider notified?: Already Contacted Primary care physician: Teofilo Alcantara Hospital Course: Final diagnosis Shortness of breath with hypoxia, secondary to bilateral pulmonary emboli with evidence of right heart strain Acute hypoxic respiratory failure secondary to above, improved on room air History of diabetes melitis, type II, uncontrolled with hyper and hypoglycemia Recent SONNY secondary to dehydration and possibly hypotension Urinary retention requiring indwelling Blancas catheter from previous hospitalization Recent laparoscopic cholecystectomy with ERCP at [facility] on 12/25/2023 Hypertension history, currently normotensive Generalized weakness with gait dysfunction GI prophylaxis DVT prophylaxis, started on Eliquis Full code Discharge disposition Patient is being discharged in a stable condition with guarded prognosis to home with home care. Patient will follow-up with Dr. Teofilo Alcantara in the outpatient setting upon discharge. Patient is to continue with Eliquis 10 mg twice daily and then transition to 5 mg twice daily after 1 week of use. Patient to follow- up with pulmonary as well as his general surgeon out of [facility] as scheduled. Total time taken is greater than 35 minutes. Hospital course This is a 73-year-old male who was recently admitted with increased shortness of breath and hypoxia sent from an ECF underwent imaging and was noted to have bilateral pulmonary emboli. Patient with concerns of possible right heart strain underwent thrombectomy with vascular surgery. Patient was continued on IV heparin and has transition to oral Eliquis. Patient was started on 10 mg twice daily and will titrate down to 5 mg twice daily thereafter. Patient has weaned off oxygen and currently maintaining oxygen saturations above 90% on room air. Patient has been instructed to follow-up with primary care provider as well as pulmonary outpatient. Patient initially discussing possibly returning to ECF although evaluated by physical therapy and reported to doing well and will now be going home with home care. Patient has been cleared by consultations for discharge home. Patient has been evaluated by general surgery on previous admission and he has been discussed with following up with surgeon out of [place] for evaluation and SUZETTE drain removal. Currently no reports of chest pain, shortness of breath, or palpitations. Patient is afebrile. No reports of nausea or vomiting and patient is tolerating diet. Patient will be discharged home today. Guarded prognosis Physical exam: Gen: This is a 73-year-old male who is awake, alert and oriented x 3, well- developed, elderly appearing HEENT: Head is atraumatic, normocephalic. Pupils equal, round. Sclerae is anicteric. NECK: Supple. No JVD. No lymphadenopathy. No thyromegaly. LUNGS: Diminished breath sounds bilaterally otherwise clear to auscultation. No wheezes or rhonchi. No intercostal retractions. HEART: S1, S2 are muffled ABDOMEN: Soft. Bowel sounds are present. No masses. No tenderness. EXTREMITIES: No pedal edema. No calf tenderness. Bilateral lower extremity edema noted, right more so than left, nonpitting NEUROLOGICAL: Patient is awake, alert and oriented x3. Cranial nerves 2 through 12 are grossly intact. Please refer to medication reconciliation sheet for a list of medications. The impression and plan of care has been dictated by Thao Hall, Nurse Practitioner as directed. Dr. Elder MD I have performed a history and examination and MDM of this patient, discussed the same with the dictator, and agree with the dictator's assessment and plan as written ,documented as a scribe. Based on total visit time, I have performed more than 50% of the visit. Patient Condition at Discharge: Fair Plan - Discharge Summary Discharge Rx Participant: No New Discharge Prescriptions: New Apixaban Initiation Dose--VTE [Eliquis Initiation Dosing for VTE Treatment] See Taper PO BID 30 Days #74 tab guaiFENesin SYRUP 100MG/5ML [Robitussin] 200 mg PO Q6HR PRN #120 ml PRN Reason: Cough Continue Latanoprost Ophth [Xalatan 0.005%] 1 drop LEFT EYE HS Atorvastatin [Lipitor] 40 mg PO DAILY Insulin Glargine,Hum.rec.anlog [Lantus Solostar Pen] 10 unit SQ DAILY PRN PRN Reason: BLOOD SUGAR > 200 methIMAzole [Tapazole] 5 mg PO DAILY Brimonidine Tartrate [Alphagan P 0.2% Ophth Soln] 1 drops BOTH EYES TID Heparin Sodium,Porcine (1 ml) [Heparin Sodium] 5,000 unit SQ Q12HR each Acetaminophen Tab [Tylenol] 650 mg PO Q6HR PRN tab PRN Reason: Mild Pain Or Fever > 100.5 Tamsulosin HCl [Flomax] 0.4 mg PO DAILY 30 Days #30 capsule INSULIN ASPART (NovoLOG) [NovoLOG (formulary)] See Protocol SQ AC-TID Calcium Carb-Vit D 500Mg-5Mcg [Oscal 500+D 5 Mcg (200 Iu)] 1 tab PO TID- W/MEALS Discharge Medication List Atorvastatin [Lipitor] 40 mg PO DAILY 05/09/22 [History] Insulin Glargine,Hum.rec.anlog [Lantus Solostar Pen] 10 unit SQ DAILY PRN 05/09/22 [History] Latanoprost Ophth [Xalatan 0.005%] 1 drop LEFT EYE HS 05/09/22 [History] Brimonidine Tartrate [Alphagan P 0.2% Ophth Soln] 1 drops BOTH EYES TID 12/20/23 [History] methIMAzole [Tapazole] 5 mg PO DAILY 12/20/23 [History] Acetaminophen Tab [Tylenol] 650 mg PO Q6HR PRN tab 01/03/24 [Rx] Heparin Sodium,Porcine (1 ml) [Heparin Sodium] 5,000 unit SQ Q12HR each 01/03/24 [Rx] Calcium Carb-Vit D 500Mg-5Mcg [Oscal 500+D 5 Mcg (200 Iu)] 1 tab PO TID-W/MEALS 01/04/24 [History] INSULIN ASPART (NovoLOG) [NovoLOG (formulary)] See Protocol SQ AC-TID 01/04/24 [History] Apixaban Initiation Dose--VTE [Eliquis Initiation Dosing for VTE Treatment] See Taper PO BID 30 Days #74 tab 01/07/24 [Rx] Tamsulosin HCl [Flomax] 0.4 mg PO DAILY 30 Days #30 capsule 01/07/24 [Rx] guaiFENesin SYRUP 100MG/5ML [Robitussin] 200 mg PO Q6HR PRN #120 ml 01/07/24 [Rx] Follow up Appointment(s)/Referral(s): Teofilo Alcantara MD [Primary Care Provider] - 01/10/24 11:00 am Randal Haney DO [STAFF PHYSICIAN] - 01/22/24 9:30 am Sunil Liz DO [Doctor of Osteopathic Medicine] - 01/08/24 10:45 am Brock Pardo MD [STAFF PHYSICIAN] - 1 Week (Office to call with appointment date and time.) Patient Instructions/Handouts: Pulmonary Edema (DC), Embolectomy (DC) Activity/Diet/Wound Care/Special Instructions: Activity limited until follow-up Follow-up with primary care provider on discharge Follow-up with pulmonary outpatient Follow-up with urology outpatient Follow-up with your general surgeon out of [place] this week for evaluation of the SUZETTE drain and removal and follow-up from surgery Continue with indwelling Blancas catheter for now on Flomax and trial of void outpatient Monitor blood sugars ACHS and keep a diary of all readings for primary follow-up Continue heart healthy diabetic diet Continue on Eliquis 10 mg twice daily for 1 week and then titrate down to 5 mg twice daily thereafter Discharge Disposition: HOME WITH HOME HEALTH SERVICES
--- NOTE | 2024-01-16 07:12 | CDI ---
Documentation Clarification Form Date: 01/16/2024 11:11:00 AM From: Claudia Chavez Phone: [phone] Admit Date: 01/04/2024 04:22:00 AM Patient Name: Brett Beavers Visit Number: [id number] Discharge Date: 01/07/2024 05:30:00 PM ATTENTION: The Clinical Documentation Specialists (CDI) and [facility] Coding Staff appreciate your assistance in clarifying documentation. Please respond to the clarification below the line at the bottom and electronically sign. The CDI & [facility] Coding staff will review the response and follow-up if needed. Please note: Queries are made part of the Legal Health Record. If you have any questions, please contact the author of this message via ITS. Dr. Emmanuelle Friedman: There is documentation of Acute bilateral pulmonary emboli with evidence of right heart strain in the Pulmonology progress note 01/05. Additional clarification is requested. History/Risk Factors: Dm, HTN who presents with hypoxia, tachycardia and bilateral PE Clinical Indicators: 01/02 Triage VS: 96/70, 97.7, 112, 20, 93% 2 liters nasal cannula 01/03 Operative note, Pre/post-operative Diagnosis: "Acute bilateral pulmonary embolism with right heart strain" 01/04 H&P, Assessment: "Shortness of breath with hypoxia, likely secondary to bilateral pulmonary emboli with evidence of right heart strain." 01/05 Pulmonology PN, Assessment and Plan: "Acute hypoxic respiratory failure secondary to acute bilateral pulmonary emboli with evidence of right heart strain." 01/03 ECHO: "EF 55-60%, Right ventricular dilation. Moderate to severe pulmonary hypertension. Right ventricular systolic pressure estimated at 59mm hg. global hypokinesis, sparing the apex, Mild right atrial dilation. No right atrial thrombus or mass seen." 01/03 CTA Chest, Impression: "1. Nonocclusive and occlusive pulmonary emboli affecting all lobes with involvement of the right main pulmonary arteries. No evidence of saddle emboli. 2. RV-LV ratio is 1.7. Findings can be seen with right heart strain." Treatment: Mechanical thrombectomy by vascular surgery on 01/03 Heparin 6,640.56 units bolus once 01/03, then titrated heparin drip 01/03-01/05 Apixaban 10mg oral BID x 7 days then 5mg BID thereafter start 01/05 Can you please clarify the right heart strain? [ ] Acute bilateral pulmonary embolism with acute cor pulmonale [x ] Evidence of right heart strain clinically insignificant [ ] Other, please specify [ ] Unable to determine MTDD
== END 2024-01-07 17:30 | disposition home health service (06) | DRG 163 ==
LOC: EC 21:40 → 3SCARD 01-04 04:22 → 2SICU 01-04 07:57 → 3SCARD 01-04 09:55
PROVIDERS: ADMIT Hospitalist; ATTEND Hospitalist
PROC: 02CP3ZZ Extirpation of Matter from Pulmonary Trunk, Percutaneous Approach (ICD-10-PCS; principal; 2024-01-04 11:55)
PROC: 02CR3ZZ Extirpation of Matter from Left Pulmonary Artery, Percutaneous Approach (ICD-10-PCS; principal; 2024-01-04 11:55)
PROC: 02CQ3ZZ Extirpation of Matter from Right Pulmonary Artery, Percutaneous Approach (ICD-10-PCS; principal; 2024-01-04 11:55)
DX: I26.99 Other pulmonary embolism without acute cor pulmonale (principal); J96.01 Acute respiratory failure with hypoxia; N17.9 Acute kidney failure, unspecified; I95.9 Hypotension, unspecified; I27.20 Pulmonary hypertension, unspecified; I07.1 Rheumatic tricuspid insufficiency; I12.9 Hypertensive chronic kidney disease with stage 1 through stage 4 chronic kidney disease, or unspecified chronic kidney disease; N18.9 Chronic kidney disease, unspecified; E86.0 Dehydration; Z87.891 Personal history of nicotine dependence; E11.22 Type 2 diabetes mellitus with diabetic chronic kidney disease; Z79.4 Long term (current) use of insulin
CPT/HCPCS: 36415; 37184; 37185; 71046; 71275; 75743; 80048; 80053; 81001; 83605; 83735; 83880; 84484; 85025; 85379; 85730; 93005; 93306; 93970; 94760; 96361; 96365; 96366; 99291

== ENCOUNTER → 2024-02-19 | Outpatient (CLI) | payer MEDICARE ==
[2024-02-19 09:51] LABS: Creatinine,Urine Random 68.7 mg/dL; Protein/Creatinine Ratio,Urine 0.146
[2024-02-19 15:26] LABS: Appearance,Urine Clear (Clear); Bilirubin,Urine Negative (Negative); Blood,Urine Negative (Negative); Color,Urine Yellow (Yellow); Ketones,Urine Negative (Negative); Nitrite,Urine Negative (Negative); PH, Urine 6.5; Specific Gravity,Urine 1.024 (1.001-1.030)
[2024-02-19 15:42] LABS: HCT 41.4 % (39.6-50.0); HGB 12.8 g/dL (13.0-17.0); MCH 30.4 pg (27.0-32.0); MCHC 30.9 g/dL (32.0-37.0); MCV 98.3 FL (80.0-97.0); NRBC Per 100 WBC 0 X 10*3/uL (0.00-0.01); Platelet Count 268 X 10*3/uL (140-440); RBC 4.21 X 10*6/uL (4.40-5.60); RDW 13.2 % (11.5-14.5); WBC 5.58 X 10*3/uL (4.50-10.00)
[2024-02-19 15:54] LABS: ALT 25 U/L (10-49); AST 20 U/L (14-35); Albumin 4.3 g/dL (3.8-4.9); Albumin/Globulin Ratio 1.48 Ratio (1.60-3.17); Alkaline Phosphatase 116 U/L (41-126); BUN/Creat Ratio 13.44 Ratio (12.00-20.00); Blood Urea Nitrogen 24.2 mg/dL (9.0-27.0); Calcium 9.9 mg/dL (8.7-10.3); Chloride 104 mmol/L (96-109); Ferritin 48.7 ng/mL (22.0-322.0); Globulin 2.9 g/dL (1.6-3.3); Glucose 135 mg/dL (70-110); Iron 64 UG/DL (65-175); Magnesium 2.4 mg/dL (1.5-2.4); Phosphorus 4.2 mg/dL (2.4-5.1); Potassium 5.2 mmol/L (3.5-5.5); Sodium 140 mmol/L (135-145); Total Bilirubin 0.8 mg/dL (0.3-1.2); Total Iron Binding Capacity 405 UG/DL (228-460); Total Protein 7.2 g/dL (6.2-8.2)
[2024-02-19 21:40] LABS: Microalbumin Creatinine Ratio <16 mg/g Cr (0-30); Urine Creatinine 74.1 mg/dL (39.0-259.0)
== END | disposition home or self-care (01) ==
LOC: LABWHC1 08:46
PROVIDERS: ATTEND Internal Medicine Nephrology
DX: E55.9 Vitamin D deficiency, unspecified (principal); N18.32 Chronic kidney disease, stage 3b; N39.0 Urinary tract infection, site not specified; N25.81 Secondary hyperparathyroidism of renal origin; D63.1 Anemia in chronic kidney disease; R80.9 Proteinuria, unspecified
CPT/HCPCS: 36415; 80053; 81003; 82043; 82306; 82570; 82728; 83540; 83550; 83735; 83970; 84100; 84156; 85027

== ENCOUNTER → 2024-04-10 | Outpatient (CLI) | payer MEDICARE ==
--- NOTE | 2024-05-19 14:51 | CT ---
Site ID [facility] Patient Brett Beavers C ID [id number] Age/Gender: 73Y, M Order # N/A Procedure CTA CHEST Date 04/10/2024 2:50:00 PM EXAMINATION TYPE: CT angio chest CT DLP: 331.10 mGycm, Automated exposure control for dose reduction was used. DATE OF EXAM: 04/11/2024 11:39 AM COMPARISON: CTA chest 01/04/2024 CLINICAL INDICATION: Male, 73 year old with history of pulmonary embolism, follow-up; TECHNIQUE/CONTRAST: CTA scan of the thorax is performed with IV Contrast, patient injected with 80 mL of Isovue 370, pulm onary embolism protocol. MIP images are created and reviewed. FINDINGS: Pulmonary Artery: There is no evidence for a filling defect within the pulmonary vasculature to sugge st acute pulmonary embolism. Resolution of previously demonstrated pulmonary emboli. The pulmonary ar canelo is of normal size. Lungs/Pleura: No evidence of focal consolidation, pleural effusion or pneumothorax. Bilateral posteri or [place] fat filled hernias. Airway: Large airways are patent. Heart: Heart is within normal limits for size.. Mild coronary artery calcifications. No pericardial e ffusion. Vasculature: No evidence of aortic aneurysm. Mild atherosclerotic calcification in the aorta and its branches. Mediastinum: No evidence of adenopathy. Posterior mediastinal calcified lymph nodes. Musculoskeletal: No acute osseous abnormalities. Multilevel degenerative disc disease which is most p ronounced at T9-T10 and T3-T4. Prominent sclerosis involving the inferior endplate of T3. Soft Tissues: Bilateral gynecomastia. Lower neck: No significant findings. Upper Abdomen: Tiny hiatal hernia. Similar tiny inferior right hepatic lobe marginal hyperdense foci from most recent CT. Single focus of gas identified within the gallbladder fossa which is decreased f rom prior exam postcholecystectomy. IMPRESSION: 1. No evidence of pulmonary embolism. Resolution of previously demonstrated pulmonary emboli. 2. Sequelae of prior granulomatous disease.
== END | disposition home or self-care (01) ==
LOC: RADCTMAIN 14:30
PROVIDERS: ATTEND Internal Medicine Critical Care Medicine
DX: I26.99 Other pulmonary embolism without acute cor pulmonale (principal)
CPT/HCPCS: 71275; Q9967

== ENCOUNTER → 2024-05-20 | Outpatient (CLI) | payer MEDICARE ==
[2024-05-20 10:10] LABS: Creatinine,Urine Random 68.3 mg/dL; Protein/Creatinine Ratio,Urine 0.19
[2024-05-20 11:23] LABS: Basophils # (A) 0.04 X 10*3/uL (0.00-0.10); Basophils % (A) 0.7 %; Eosinophils # (A) 0.07 X 10*3/uL (0.04-0.35); Eosinophils % (A) 1.3 %; HCT 44.2 % (39.6-50.0); HGB 13.9 g/dL (13.0-17.0); Lymphocytes # (A) 2.49 X 10*3/uL (0.90-5.00); Lymphocytes % (A) 46.3 %; MCH 31.4 pg (27.0-32.0); MCHC 31.4 g/dL (32.0-37.0); MCV 99.8 FL (80.0-97.0); Monocytes # (A) 0.49 X 10*3/uL (0.20-1.00); Monocytes % (A) 9.1 %; NRBC Per 100 WBC 0 X 10*3/uL (0.00-0.01); Neutrophils # (A) 2.27 X 10*3/uL (1.80-7.70); Neutrophils % (A) 42.2 %; Platelet Count 211 X 10*3/uL (140-440); RBC 4.43 X 10*6/uL (4.40-5.60); RDW 12.8 % (11.5-14.5); WBC 5.38 X 10*3/uL (4.50-10.00)
[2024-05-20 12:02] LABS: % Iron Saturation 21.39 (15.00-50.00); ALT 49 U/L (10-49); AST 28 U/L (14-35); Albumin 4.6 g/dL (3.8-4.9); Alkaline Phosphatase 113 U/L (41-126); BUN/Creat Ratio 8.78 Ratio (12.00-20.00); Blood Urea Nitrogen 15.8 mg/dL (9.0-27.0); Chloride 106 mmol/L (96-109); Ferritin 40.4 ng/mL (22.0-322.0); Globulin 2.7 g/dL (1.6-3.3); Glucose 176 mg/dL (70-110); Iron 86 UG/DL (65-175); Magnesium 2.4 mg/dL (1.5-2.4); Potassium 5.7 mmol/L (3.5-5.5); Sodium 141 mmol/L (135-145); Total Bilirubin 1.5 mg/dL (0.3-1.2); Total Iron Binding Capacity 402 UG/DL (228-460); Total Protein 7.3 g/dL (6.2-8.2)
[2024-05-20 12:30] LABS: Appearance,Urine Clear (Clear); Bilirubin,Urine Negative (Negative); Blood,Urine Negative (Negative); Color,Urine Yellow (Yellow); Ketones,Urine Negative (Negative); Nitrite,Urine Negative (Negative); PH, Urine 5.5; Specific Gravity,Urine 1.026 (1.001-1.030)
== END | disposition home or self-care (01) ==
LOC: LABWHC1 08:12
PROVIDERS: ATTEND Nurse Practitioner Acute Care
DX: N18.32 Chronic kidney disease, stage 3b (principal)
CPT/HCPCS: 36415; 80053; 81003; 82043; 82306; 82570; 82728; 83540; 83550; 83735; 83970; 84156; 85025

== ENCOUNTER → 2024-10-10 | Outpatient (CLI) | payer MEDICARE ==
[2024-10-10 10:05] LABS: Appearance,Urine Clear (Clear); Bilirubin,Urine Negative (Negative); Blood,Urine Negative (Negative); Color,Urine Colorless; Glucose,Urine (UA) 4+ (Negative); Ketones,Urine Negative (Negative); Leukocyte Esterase,Urine Negative (Negative); Nitrite,Urine Negative (Negative); Protein,Urine Negative (Negative); Specific Gravity,Urine 1.027 (1.001-1.035); Urobilinogen,Urine <2.0 mg/dL (<2.0)
[2024-10-10 10:20] LABS: Creatinine,Urine Random 66.7 mg/dL; Protein/Creatinine Ratio,Urine 0.3
[2024-10-10 15:09] LABS: Basophils # (A) 0.04 X 10*3/uL (0.00-0.10); Basophils % (A) 0.6 %; Eosinophils # (A) 0.04 X 10*3/uL (0.04-0.35); Eosinophils % (A) 0.6 %; HCT 47.2 % (39.6-50.0); HGB 14.9 g/dL (13.0-17.0); Lymphocytes # (A) 2.79 X 10*3/uL (0.90-5.00); Lymphocytes % (A) 45.3 %; MCHC 31.6 g/dL (32.0-37.0); MCV 101.5 FL (80.0-97.0); Mean Platelet Volume 11.2 FL (9.5-12.2); Monocytes # (A) 0.59 X 10*3/uL (0.20-1.00); Monocytes % (A) 9.6 %; NRBC Per 100 WBC 0 X 10*3/uL (0.00-0.01); Neutrophils # (A) 2.69 X 10*3/uL (1.80-7.70); Neutrophils % (A) 43.7 %; Platelet Count 250 X 10*3/uL (140-440); RBC 4.65 X 10*6/uL (4.40-5.60); RDW 11.9 % (11.5-14.5); WBC 6.16 X 10*3/uL (4.50-10.00)
[2024-10-10 15:44] LABS: % Iron Saturation 27.16 (15.00-50.00); BUN/Creat Ratio 9.29 Ratio (12.00-20.00); Blood Urea Nitrogen 15.8 mg/dL (9.0-27.0); Carbon Dioxide 24.4 mmol/L (21.6-31.8); Chloride 102 mmol/L (96-109); Glucose 211 mg/dL (70-110); Iron 113 UG/DL (65-175); Magnesium 2.4 mg/dL (1.5-2.4); Phosphorus 4.1 mg/dL (2.4-5.1); Potassium 5.4 mmol/L (3.5-5.5); Sodium 138 mmol/L (135-145); Total Iron Binding Capacity 416 UG/DL (228-460)
[2024-10-10 15:45] LABS: ALT 56 U/L (10-49); AST 35 U/L (14-35); Albumin 4.7 g/dL (3.8-4.9); Albumin/Globulin Ratio 1.74 Ratio (1.60-3.17); Alkaline Phosphatase 121 U/L (41-126); Ferritin 62.4 ng/mL (22.0-322.0); Globulin 2.7 g/dL (1.6-3.3); Total Bilirubin 1.4 mg/dL (0.3-1.2); Total Protein 7.4 g/dL (6.2-8.2)
[2024-10-10 20:47] LABS: Urine Creatinine 73.7 mg/dL (39.0-259.0)
== END | disposition home or self-care (01) ==
LOC: LABWHC1 08:13
PROVIDERS: ATTEND Nurse Practitioner Acute Care
DX: E55.9 Vitamin D deficiency, unspecified (principal); N18.32 Chronic kidney disease, stage 3b; D63.1 Anemia in chronic kidney disease; N39.0 Urinary tract infection, site not specified; N25.81 Secondary hyperparathyroidism of renal origin; R80.9 Proteinuria, unspecified
CPT/HCPCS: 36415; 80053; 81003; 82043; 82306; 82570; 82728; 83540; 83550; 83735; 83970; 84100; 84156; 85025

== ENCOUNTER → 2025-02-06 | Outpatient (CLI) | payer MEDICARE ==
[2025-02-06 09:21] LABS: Creatinine,Urine Random 81.7 mg/dL; Protein/Creatinine Ratio,Urine 0.257
[2025-02-06 10:17] LABS: HCT 45.1 % (39.6-50.0); HGB 14.3 g/dL (13.0-17.0); MCH 32.4 pg (27.0-32.0); MCHC 31.7 g/dL (32.0-37.0); Mean Platelet Volume 10.5 FL (9.5-12.2); NRBC Per 100 WBC 0 X 10*3/uL (0.00-0.01); Platelet Count 229 X 10*3/uL (140-440); RBC 4.42 X 10*6/uL (4.40-5.60); RDW 11.9 % (11.5-14.5); WBC 4.82 X 10*3/uL (4.50-10.00)
[2025-02-06 10:33] LABS: % Iron Saturation 24.42 (15.00-50.00); Ferritin 56.2 ng/mL (22.0-322.0); Iron 95 UG/DL (65-175); Magnesium 2.3 mg/dL (1.5-2.4); Phosphorus 3.7 mg/dL (2.4-5.1); Total Iron Binding Capacity 389 UG/DL (228-460)
[2025-02-06 11:23] LABS: ALT 38 U/L (10-49); AST 29 U/L (14-35); Albumin 4.5 g/dL (3.8-4.9); Albumin/Globulin Ratio 1.88 Ratio (1.60-3.17); Alkaline Phosphatase 99 U/L (41-126); BUN/Creat Ratio 10.19 Ratio (12.00-20.00); Blood Urea Nitrogen 16.3 mg/dL (9.0-27.0); Calcium 9.6 mg/dL (8.7-10.3); Carbon Dioxide 23.4 mmol/L (21.6-31.8); Chloride 103 mmol/L (96-109); Globulin 2.4 g/dL (1.6-3.3); Glucose 140 mg/dL (70-110); Potassium 4.6 mmol/L (3.5-5.5); Sodium 138 mmol/L (135-145); Total Bilirubin 1.4 mg/dL (0.3-1.2); Total Protein 6.9 g/dL (6.2-8.2)
[2025-02-06 16:23] LABS: Appearance,Urine Clear (Clear); Bilirubin,Urine Negative (Negative); Blood,Urine Negative (Negative); Color,Urine Yellow (Yellow); Ketones,Urine Negative (Negative); Nitrite,Urine Negative (Negative); PH, Urine 5.5; Specific Gravity,Urine 1.029 (1.001-1.030)
[2025-02-06 21:41] LABS: Urine Creatinine 87.8 mg/dL (39.0-259.0)
== END | disposition home or self-care (01) ==
LOC: LABWHC1 08:07
PROVIDERS: ATTEND Nurse Practitioner Acute Care
DX: N18.32 Chronic kidney disease, stage 3b (principal); D63.1 Anemia in chronic kidney disease; N39.0 Urinary tract infection, site not specified; N25.81 Secondary hyperparathyroidism of renal origin; E55.9 Vitamin D deficiency, unspecified; R80.9 Proteinuria, unspecified
CPT/HCPCS: 36415; 80053; 81003; 82043; 82306; 82570; 82728; 83540; 83550; 83735; 83970; 84100; 84156; 85027